=== PATIENT | female | born 1955 | race Caucasian/White ===

== ENCOUNTER → 2017-10-07 06:52 | Outpatient (CLI) | payer OTHER, SELFPAY ==
[2017-10-07 07:40] LABS: Microalbumin,Random Urine 6.5 mg/L (NO RANGE EST.); Microalbumin:Creatinine Ratio 4.1 mg/g CRE (<30 mg/g CRE)
[2017-10-07 07:49] LABS: ALB/GLOB Ratio 1.2 RATIO (0.9-2.4); AST(SGOT) 19 U/L (15-37); Alanine Aminotransfer ALT/SGPT 20 U/L (13-56); Albumin, Serum 3.8 g/dL (3.2-5.0); Alkaline Phosphatase 71 U/L (45-117); Anion Gap 7 (5-15); BUN 20 mg/dL (7-18); BUN/Creat Ratio 18.9 RATIO (10-20); Calcium,Total 9.4 mg/dL (8.5-10.1); Chloride 107 mmol/L (98-107); Cholesterol 240 mg/dL (200); Creatinine, Serum 1.06 mg/dL (0.55-1.02); EST Glomerular Filtration Rate 55 mL/min (>60); Est Glom Filt Rate - Afr Amer 67 mL/min (>60); Globulin 3.3 g/dL (2.2-4.2); Glucose 114 mg/dL (74-106); High Density Lipoprotein 38 mg/dL; Potassium 4.1 mmol/L (3.5-5.1); Protein, Total 7.1 g/dL (6.4-8.2); Sodium Level 141 mmol/L (136-145); Triglycerides 244 mg/dL; Very Low Density Lipoprotein 49 mg/dL (5-40)
[2017-10-07 08:06] LABS: Hemoglobin A1c 6.2 % (4.2-6.3)
== END ==
PROVIDERS: Family Provider Family Medicine; PCP Family Medicine; Visit Provider Family Medicine
DX: E11.9 Type 2 diabetes mellitus without complications (principal); E78.5 Hyperlipidemia, unspecified
CPT/HCPCS: 36415; 80053; 80061; 82043; 82570; 83036

== ENCOUNTER → 2018-06-27 08:34 | Outpatient (CLI) | payer MEDICARE, SELFPAY ==
--- NOTE | 2018-06-27 08:38 | BI_ITS ---
MAMMOGRAPHY - BILATERAL SCREENING REASON FOR EXAM: Female, 63 years old. Routine annual screening examination. PERTINENT HISTORY: Non-contributory. TECHNIQUE: Digital bilateral breast satish (3D mammographic acquisition) in the CC and MLO projections. 2-D mediolateral oblique (MLO) and craniocaudad (CC) views of both breasts were obtained. CAD: Full Field Digital Mammography with Computer Added Detection was performed. COMPARISON: Comparison is made with prior outside examination dated May 11, 2016. FINDINGS: Breast Composition: The breasts are heterogeneously dense, which may obscure small masses. There are no dominant masses or suspicious calcifications. Stable scattered calcifications in both breasts likely more prominent on the left side. No focal cluster is seen. Stable appearance of the fatty left axillary lymph nodes. No other significant abnormalities are identified. There has been no significant change since the prior study. BI/SCREENING MAMM (CAD), BILAT IMPRESSION: Stable bilateral screening mammogram. Yearly follow-up mammogram recommended. (A) ASSESSMENT CATEGORY: BIRADS Category 2: Benign. A letter regarding these results will be sent to the patient by the facility within 30 days. Approximately 10% of breast cancers are not detected by mammography. A normal mammogram should not delay biopsy of a clinically suspicious abnormality. [id number] Electronically Signed: Tyrone Moss MD at 10:11 EST , Service support ,
== END ==
PROVIDERS: Family Provider Family Medicine; PCP Family Medicine; Referring Provider Family Medicine; Visit Provider Family Medicine
DX: Z12.31 Encounter for screening mammogram for malignant neoplasm of breast (principal)
CPT/HCPCS: 77063; 77067

== ENCOUNTER → 2018-10-06 | Outpatient (CLI) | payer MEDICARE, SELFPAY ==
[2018-10-06 12:08] LABS: Absolute Lymphocyte Count 1.51 X10^3/ul (0.83-4.51); Absolute Neutrophil Count 2.4 X10^3/uL (2.0-7.7); Basophil# 0.03 X10^3/uL; Basophil% 0.7 % (0-1); Eosinophil# 0.13 X10^3/uL; Eosinophils% 2.8 % (0-5); Hematocrit 41.3 % (37-47); Hemoglobin 13.6 g/dl (12.0-15.0); Lymphocyte # 1.51 X10^3/ul (4.0); Mean Corp Hgb Conc 32.9 g/gl (32-36); Mean Corpuscular Hgb 31.1 pg (27.0-32.0); Mean Corpuscular Volume 94.5 fL (81-99); Mean Platelet Vol. 9.6 fl (6.2-12.0); Monocyte# 0.53 X10^3/uL; Monocyte% 11.6 % (0-10); Neutrophil # 2.36 X10^3/uL (2.7-7.7); Neutrophil % 51.7 % (47-70); Platelet Count 275 K/mm3 (150-450); RBC Distribution Width CV 12.4 % (11.6-14.6); Red Blood Count 4.37 M/mm3 (4.2-5.4); White Blood Count 4.6 K/mm3 (4.4-11.0)
[2018-10-06 12:13] LABS: POSITIVE COUNT NO; POSITIVE DIFFERENTIAL NO; POSITIVE MORPHOLOGY NO
[2018-10-06 12:29] LABS: ALB/GLOB Ratio 1.1 RATIO (0.9-2.4); AST(SGOT) 23 U/L (15-37); Alanine Aminotransfer ALT/SGPT 24 U/L (13-56); Albumin, Serum 3.9 g/dL (3.2-5.0); Alkaline Phosphatase 78 U/L (45-117); BUN 18 mg/dL (7-18); BUN/Creat Ratio 15.4 RATIO (10-20); Calcium,Total 9.8 mg/dL (8.5-10.1); Cholesterol 279 mg/dL (200); Creatinine, Serum 1.17 mg/dL (0.55-1.02); EST Glomerular Filtration Rate 49 mL/min (>60); Est Glom Filt Rate - Afr Amer 60 mL/min (>60); Globulin 3.7 g/dL (2.2-4.2); Glucose 115 mg/dL (74-106); Protein, Total 7.6 g/dL (6.4-8.2); Triglycerides 167 mg/dL
[2018-10-06 12:30] LABS: Anion Gap 3 (5-15); Chloride 107 mmol/L (98-107); High Density Lipoprotein 43 mg/dL; Potassium 4.2 mmol/L (3.5-5.1); Sodium Level 139 mmol/L (136-145); Very Low Density Lipoprotein 33 mg/dL (5-40)
== END | disposition home or self-care (01) ==
LOC: LAB.FUTURE 09:14
PROVIDERS: Family Provider Family Medicine; PCP Family Medicine; Visit Provider Family Medicine
DX: Z00.01 Encounter for general adult medical examination with abnormal findings (principal); E11.9 Type 2 diabetes mellitus without complications; N18.3 Chronic kidney disease, stage 3 (moderate); E78.5 Hyperlipidemia, unspecified
CPT/HCPCS: 36415; 80053; 80061; 83036; 85025

== ENCOUNTER → 2018-10-08 12:07 | Outpatient (CLI) | payer MEDICARE, SELFPAY ==
[2018-10-08 13:58] LABS: Microalbumin,Random Urine < 5.0 mg/L (NO RANGE EST.)
== END ==
PROVIDERS: Family Provider Family Medicine; PCP Family Medicine; Referring Provider Family Medicine; Visit Provider Family Medicine
DX: Z00.01 Encounter for general adult medical examination with abnormal findings (principal); E11.22 Type 2 diabetes mellitus with diabetic chronic kidney disease; N18.3 Chronic kidney disease, stage 3 (moderate); E78.5 Hyperlipidemia, unspecified
CPT/HCPCS: 82043; 82570

== ENCOUNTER → 2018-11-21 | Outpatient (CLI) | payer MEDICARE, SELFPAY ==
[2018-11-21 09:04] VITALS: BMI 33.7
--- NOTE | 2018-11-21 09:16 | RAD_ITS ---
STUDY: X-RAY - RIGHT HAND REASON FOR EXAM: Female, 63 years old. Pain in right fourth proximal phalanx. TECHNIQUE: 3 view(s) of the hand. COMPARISON: None. FINDINGS: Bones: There is minimal generalized osteopenia. Joints: Mild arthrosis of the radial carpal row, the first carpometacarpal joint and the MTP and IP joints. Soft tissues: The soft tissues are unremarkable. Foreign body: None RAD/Hand Min 3 Views IMPRESSION: Mild osteopenia with osteoarthritic changes. No acute finding. Electronically Signed: Jimmy Mcclendon MD at 13:44 EDT , Service support ,
== END | disposition home or self-care (01) ==
LOC: HPRAD 09:15
PROVIDERS: Family Provider Family Medicine; PCP Family Medicine; Referring Provider Orthopaedic Surgery; Visit Provider Orthopaedic Surgery
DX: M65.331 Trigger finger, right middle finger (principal)
CPT/HCPCS: 73130

== ENCOUNTER → 2019-04-13 | Outpatient (CLI) | payer MEDICARE, SELFPAY ==
[2018-12-07 12:26] VITALS: BMI 33.7
[2019-04-13 12:26] LABS: Anion Gap 7 (5-15); BUN 19 mg/dL (7-18); BUN/Creat Ratio 19.5 RATIO (10-20); Calcium,Total 9.6 mg/dL (8.5-10.1); Chloride 105 mmol/L (98-107); Creatinine, Serum 0.97 mg/dL (0.55-1.02); EST Glomerular Filtration Rate 61 mL/min (>60); Est Glom Filt Rate - Afr Amer 74 mL/min (>60); Glucose 129 mg/dL (74-106); Potassium 4.1 mmol/L (3.5-5.1); Sodium Level 138 mmol/L (136-145)
[2019-04-13 12:45] LABS: Vitamin D,25 Hydroxy 14.7 ng/mL (29.95-100.01)
[2019-04-13 13:10] LABS: PTHIN 85.6 pg/mL (18.4-80.1)
[2019-04-15 14:56] LABS: CHOLESTEROL TOTAL 285 mg/dL (100-199); HDL-C 22 mg/dL (>39); HDL-P TOTAL 28.7 umol/L (>=30.5); SMALL LDL-P 1931 nmol/L (<=527)
[2019-04-15 15:36] LABS: INSULIN RESISTANCE SCORE 97 (<=45); LDL SIZE 19.6 nm (>20.5); LDL-P 2427 nmol/L (<1000); TRIGLYCERIDES 965 mg/dL (0-149)
== END | disposition home or self-care (01) ==
LOC: LAB.FUTURE 08:40
PROVIDERS: Family Provider Family Medicine; PCP Family Medicine; Visit Provider Family Medicine
DX: E78.5 Hyperlipidemia, unspecified (principal); E11.22 Type 2 diabetes mellitus with diabetic chronic kidney disease; N18.3 Chronic kidney disease, stage 3 (moderate)
CPT/HCPCS: 36415; 80048; 80061; 82306; 83036; 83704; 83970

== ENCOUNTER → 2019-10-10 08:02 | Outpatient (CLI) | payer MEDICARE, SELFPAY ==
[2018-12-07 12:26] VITALS: BMI 33.7
[2019-10-10 08:57] LABS: Hemoglobin A1c 6.3 % (4.2-6.3)
[2019-10-10 08:59] LABS: ALB/GLOB Ratio 1.2 RATIO (0.9-2.4); AST(SGOT) 21 U/L (15-37); Alanine Aminotransfer ALT/SGPT 23 U/L (13-56); Alkaline Phosphatase 68 U/L (45-117); Anion Gap 6 (5-15); BUN 23 mg/dL (7-18); BUN/Creat Ratio 19.7 RATIO (10-20); Calcium,Total 9.3 mg/dL (8.5-10.1); Chloride 110 mmol/L (98-107); Cholesterol 234 mg/dL (200); Creatinine, Serum 1.17 mg/dL (0.55-1.02); EST Glomerular Filtration Rate 49 mL/min (>60); Est Glom Filt Rate - Afr Amer 59 mL/min (>60); Globulin 3.4 g/dL (2.2-4.2); Glucose 135 mg/dL (74-106); High Density Lipoprotein 42 mg/dL; Potassium 4.4 mmol/L (3.5-5.1); Protein, Total 7.4 g/dL (6.4-8.2); Sodium Level 142 mmol/L (136-145); Thyroid Stim Hormone (TSH) 1.45 uIU/mL (0.358-3.74); Triglycerides 347 mg/dL; Very Low Density Lipoprotein 69 mg/dL (5-40)
[2019-10-12 09:38] LABS: Vitamin D,25 Hydroxy 38.2 ng/mL
== END ==
PROVIDERS: Family Provider Family Medicine; PCP Family Medicine; Referring Provider Family Medicine; Visit Provider Family Medicine
DX: E11.9 Type 2 diabetes mellitus without complications (principal); E78.5 Hyperlipidemia, unspecified; E55.9 Vitamin D deficiency, unspecified
CPT/HCPCS: 36415; 80053; 80061; 82306; 83036; 84443

== ENCOUNTER → 2020-04-05 07:13 | Outpatient (CLI) | payer MEDICARE, SELFPAY ==
[2018-12-07 12:26] VITALS: BMI 33.7
[2020-04-05 08:25] LABS: Microalbumin,Random Urine 15.1 mg/L (NO RANGE EST.); Microalbumin:Creatinine Ratio 7.5 mg/g CRE (<30 mg/g CRE)
[2020-04-05 08:44] LABS: Hemoglobin A1c 6.2 % (3.8-5.6)
[2020-04-05 08:47] LABS: ALB/GLOB Ratio 1.1 RATIO (0.9-2.4); AST(SGOT) 22 U/L (15-37); Alanine Aminotransfer ALT/SGPT 22 U/L (13-56); Albumin, Serum 3.9 g/dL (3.2-5.0); Alkaline Phosphatase 65 U/L (45-117); Anion Gap 4 (5-15); BUN 19 mg/dL (7-18); BUN/Creat Ratio 15.1 RATIO (10-20); Calcium,Total 9.6 mg/dL (8.5-10.1); Chloride 108 mmol/L (98-107); Cholesterol 232 mg/dL (200); Creatinine, Serum 1.26 mg/dL (0.55-1.02); EST Glomerular Filtration Rate 45 mL/min (>60); Est Glom Filt Rate - Afr Amer 54 mL/min (>60); Globulin 3.6 g/dL (2.2-4.2); Glucose 129 mg/dL (74-106); High Density Lipoprotein 48 mg/dL; Protein, Total 7.5 g/dL (6.4-8.2); Sodium Level 140 mmol/L (136-145); Triglycerides 225 mg/dL; Very Low Density Lipoprotein 45 mg/dL (5-40)
== END ==
PROVIDERS: PCP Family Medicine; Referring Provider Family Medicine; Visit Provider Family Medicine
DX: E11.22 Type 2 diabetes mellitus with diabetic chronic kidney disease (principal); E78.5 Hyperlipidemia, unspecified; N18.31 Chronic kidney disease, stage 3a
CPT/HCPCS: 36415; 80053; 80061; 82043; 82570; 83036

== ENCOUNTER → 2020-04-29 06:49 | Outpatient (CLI) | payer MEDICARE, SELFPAY ==
[2018-12-07 12:26] VITALS: BMI 33.7
--- NOTE | 2020-04-29 10:59 | STRESSREP_ITS ---
Stress Test Report Pharmacologic myocardial perfusion stress test. 65-year-old lady with a history of chest pain. Medications: Metformin, Zetia, vitamin D. Stress protocol: Resting EKG demonstrates normal sinus rhythm with a rate of 69 bpm normal intervals are noted resting blood pressure is 1 and 32/70 4 mmHg. 0.4 mg of regadenoson was infused per usual protocol with a maximum heart rate of 102 bpm which was 66% of max impacted heart rate the maximum workload was 1 metabolic equivalent. At rest there were no ST or T wave changes noted to suggest a bnormal flow reserve at peak infusion nonspecific ST-T wave changes were noted with no meet the criteria for ischemia. No clinical angina was noted. Myocardial perfusion protocol. 11.6 mCi of technetium 99m sestamibi was injected at rest. 0.4 mg of regadenoson was infused per usual protocol. At peak infusion 33.3 mCi of technetium 99m sestamibi was injected stress images were obtained stress and rest images were reconstructed and compared in the short axis vertical and horizontal long axis. Gated images were also obtained Perfusion SPECT analysis: Review of the stress images demonstrate normal uptake of tracer noted in all areas of the myocardium: The resting images similarly demonstrate normal uptake of tracer noted in all areas of the myocardium. No reversibility is noted to suggest ischemia. Gated SPECT analysis: The gated ejection fraction is 84%. Conclusion: Normal pharmacologic myocardial perfusion stress test. Preserved ejection fraction.
== END ==
PROVIDERS: PCP Family Medicine; Referring Provider Family Medicine; Visit Provider Family Medicine
DX: R06.00 Dyspnea, unspecified (principal); E11.9 Type 2 diabetes mellitus without complications
CPT/HCPCS: 78452; 93017; A9500; A4216; J2785

== ENCOUNTER → 2020-10-11 07:19 | Outpatient (CLI) | payer MEDICARE, SELFPAY ==
[2018-12-07 12:26] VITALS: BMI 33.7
[2020-10-11 08:36] LABS: Absolute Neutrophil Count 3.4 X10^3/uL (2.0-7.7); Basophil# 0.05 X10^3/uL; Basophil% 0.8 % (0-1); Eosinophil# 0.19 X10^3/uL; Eosinophils% 3.1 % (0-5); Hematocrit 40.8 % (37-47); Hemoglobin 13.4 g/dL (12.0-15.0); Lymphocyte % 31.1 % (19-41); Mean Corp Hgb Conc 32.8 g/dL (32-36); Mean Corpuscular Hgb 31.3 pg (27.0-32.0); Mean Corpuscular Volume 95.3 fL (81-99); Mean Platelet Vol. 9.3 fl (6.2-12.0); Monocyte# 0.58 X10^3/uL; Monocyte% 9.5 % (0-10); NRBC Flagged by Analyzer 0 % (0-5); Neutrophil # 3.36 X10^3/uL (2.7-7.7); Neutrophil % 55.2 % (47-70); Platelet Count 304 K/mm3 (150-450); RBC Distribution Width CV 12.1 % (11.6-14.6); RBC Distribution Width SD 41.5 fl (35.1-43.9); Red Blood Count 4.28 M/mm3 (4.2-5.4); White Blood Count 6.1 K/mm3 (4.4-11.0)
[2020-10-11 08:58] LABS: Microalbumin,Random Urine 9.9 mg/L (NO RANGE EST.); Microalbumin:Creatinine Ratio 5.5 mg/g CRE (<30 mg/g CRE)
[2020-10-11 09:03] LABS: Vitamin D,25 Hydroxy 32.2 ng/mL
[2020-10-11 09:09] LABS: ALB/GLOB Ratio 1.1 RATIO (0.9-2.4); AST(SGOT) 18 U/L (15-37); Alanine Aminotransfer ALT/SGPT 20 U/L (13-56); Albumin, Serum 3.9 g/dL (3.2-5.0); Alkaline Phosphatase 74 U/L (45-117); Anion Gap 6 (5-15); BUN 21 mg/dL (7-18); BUN/Creat Ratio 17.8 RATIO (10-20); Calcium,Total 9.4 mg/dL (8.5-10.1); Chloride 105 mmol/L (98-107); Cholesterol 223 mg/dL (200); Creatinine, Serum 1.18 mg/dL (0.55-1.02); EST Glomerular Filtration Rate 49 mL/min (>60); Est Glom Filt Rate - Afr Amer 59 mL/min (>60); Globulin 3.5 g/dL (2.2-4.2); Glucose 128 mg/dL (74-106); High Density Lipoprotein 44 mg/dL; Potassium 4.1 mmol/L (3.5-5.1); Protein, Total 7.4 g/dL (6.4-8.2); Sodium Level 138 mmol/L (136-145); Triglycerides 288 mg/dL; Very Low Density Lipoprotein 58 mg/dL (5-40)
== END ==
PROVIDERS: PCP Family Medicine; Referring Provider Family Medicine; Visit Provider Family Medicine
DX: E11.22 Type 2 diabetes mellitus with diabetic chronic kidney disease (principal); N18.30 Chronic kidney disease, stage 3 unspecified; E78.5 Hyperlipidemia, unspecified; E55.9 Vitamin D deficiency, unspecified; N25.81 Secondary hyperparathyroidism of renal origin
CPT/HCPCS: 36415; 80053; 80061; 82043; 82306; 82570; 83036; 83970; 85025

== ENCOUNTER → 2020-10-28 07:03 | Outpatient (CLI) | payer MEDICARE, SELFPAY ==
[2018-12-07 12:26] VITALS: BMI 33.7
--- NOTE | 2020-10-28 07:05 | BI_ITS ---
MAMMOGRAPHY - BILATERAL SCREENING REASON FOR EXAM: Female, 65 years old. Routine annual screening examination. PERTINENT HISTORY: Non-contributory. TECHNIQUE: Digital bilateral breast noah (3D mammographic acquisition) in the CC and MLO projections. 2-D mediolateral oblique (MLO) and craniocaudad (CC) views of both breasts were obtained. CAD: Full Field Digital Mammography with Computer Added Detection was performed. COMPARISON: Comparison is made with prior study dated 12/25/2018. FINDINGS: Breast Composition: The breasts are heterogeneously dense, which may obscure small masses. There are no dominant masses or suspicious calcifications. Stable benign appearing scattered bilateral microcalcifications. No focal cluster is seen. No other significant abnormalities are identified. There has been no significant change since the prior study. BI/SCRN MAMM (CAD)W/NOAH BILAT IMPRESSION: Stable bilateral screening mammogram. Yearly follow-up mammogram recommended. (A) ASSESSMENT CATEGORY: BIRADS Category 2: Benign. A letter regarding these results will be sent to the patient by the facility within 30 days. Approximately 10% of breast cancers are not detected by mammography. A normal mammogram should not delay biopsy of a clinically suspicious abnormality. [id number] Electronically Signed: Tyrone Moss MD at 8:24 EDT , Service support ,
== END ==
PROVIDERS: PCP Family Medicine; Referring Provider Family Medicine; Visit Provider Family Medicine
DX: Z12.31 Encounter for screening mammogram for malignant neoplasm of breast (principal)
CPT/HCPCS: 77063; 77067

== ENCOUNTER 2021-03-27 12:30 | Outpatient (CLI) | payer MEDICARE, SELFPAY ==
[2021-03-27 13:12] VITALS: BP 138/67; PULSE 86; RESP 16; TEMP 36.8; O2SAT 98; BMI 31.3
[2021-03-27] MEDS: 0.9% Saline Lock 10 ML Syringe IV (13:19)
[2021-03-27 13:58] VITALS: BP 128/66; PULSE 78; RESP 16; TEMP 36.9; O2SAT 97
[2021-03-27 14:58] VITALS: BP 134/73; PULSE 81; RESP 16; TEMP 37; O2SAT 99
== END 2021-03-27 14:58 | disposition home or self-care (01) ==
LOC: MS3OUT 12:30 → MS3 12:31
PROVIDERS: PCP Family Medicine; Referring Provider Nurse Practitioner Adult Health; Visit Provider Nurse Practitioner Adult Health
DX: Z23 Encounter for immunization (principal); U07.1 COVID-19
CPT/HCPCS: J7050; M0245; Q0245; A4216

== ENCOUNTER → 2021-09-28 | Outpatient (CLI) | payer MEDICARE, SELFPAY ==
[2018-12-07 12:26] VITALS: BMI 33.7
[2021-09-28 08:24] LABS: Absolute Lymphocyte Count 1.76 X10^3/uL (0.83-4.51); Absolute Neutrophil Count 3.4 X10^3/uL (2.0-7.7); Basophil# 0.04 X10^3/uL; Basophil% 0.7 % (0-1); Eosinophil# 0.15 X10^3/uL; Eosinophils% 2.5 % (0-5); Hematocrit 42.8 % (37-47); Hemoglobin 14.4 g/dL (12.0-15.0); Lymphocyte # 1.76 X10^3/ul (0.83-4.51); Lymphocyte % 29.2 % (19-41); Mean Corp Hgb Conc 33.6 g/dL (32-36); Mean Corpuscular Hgb 31.9 pg (27.0-32.0); Mean Corpuscular Volume 94.9 fL (81-99); Mean Platelet Vol. 9.7 fl (6.2-12.0); Monocyte# 0.64 X10^3/uL; Monocyte% 10.6 % (0-10); NRBC Flagged by Analyzer 0 % (0-5); Neutrophil # 3.42 X10^3/uL (2.7-7.7); Neutrophil % 56.7 % (47-70); Platelet Count 293 K/mm3 (150-450); RBC Distribution Width SD 42.2 fl (35.1-43.9); Red Blood Count 4.51 M/mm3 (4.2-5.4)
[2021-09-28 08:45] LABS: Microalbumin:Creatinine Ratio 11.8 mg/g CRE (<30 mg/g CRE)
[2021-09-28 08:51] LABS: AST(SGOT) 24 U/L (15-37); Alanine Aminotransfer ALT/SGPT 24 U/L (13-56); Alkaline Phosphatase 73 U/L (45-117); Anion Gap 4 (5-15); BUN 23 mg/dL (7-18); BUN/Creat Ratio 19.5 RATIO (10-20); Calcium,Total 9.8 mg/dL (8.5-10.1); Chloride 105 mmol/L (98-107); Cholesterol 252 mg/dL (200); Creatinine, Serum 1.18 mg/dL (0.55-1.02); EST Glomerular Filtration Rate 48 mL/min (>60); Est Glom Filt Rate - Afr Amer 59 mL/min (>60); Globulin 3.9 g/dL (2.2-4.2); Glucose 138 mg/dL (74-106); High Density Lipoprotein 46 mg/dL; Potassium 4.2 mmol/L (3.5-5.1); Protein, Total 7.9 g/dL (6.4-8.2); Sodium Level 137 mmol/L (136-145); Triglycerides 234 mg/dL; Very Low Density Lipoprotein 47 mg/dL (5-40)
[2021-09-28 08:58] LABS: Hemoglobin A1c 6.2 % (3.8-5.6)
[2021-09-28 09:19] LABS: PTHIN 92.5 pg/mL (18.4-80.1)
[2021-09-28 09:20] LABS: Vitamin D,25 Hydroxy 37.2 ng/mL
== END | disposition home or self-care (01) ==
PROVIDERS: PCP Family Medicine; Referring Provider Family Medicine; Visit Provider Family Medicine
DX: E11.22 Type 2 diabetes mellitus with diabetic chronic kidney disease (principal); N25.81 Secondary hyperparathyroidism of renal origin; N18.31 Chronic kidney disease, stage 3a; E78.5 Hyperlipidemia, unspecified; E55.9 Vitamin D deficiency, unspecified
CPT/HCPCS: 36415; 80053; 80061; 82043; 82306; 82570; 83036; 83970; 85025

== ENCOUNTER → 2021-10-12 | Outpatient (CLI) | payer MEDICARE, SELFPAY ==
[2021-10-16 13:18] LABS: Vitamin D 1,25-Dihydroxy 33.9 pg/mL (19.9-79.3)
== END | disposition home or self-care (01) ==
PROVIDERS: PCP Family Medicine; Referring Provider Family Medicine; Visit Provider Family Medicine
DX: E34.9 Endocrine disorder, unspecified (principal)
CPT/HCPCS: 36415; 82330; 82652; 83970

== ENCOUNTER → 2021-10-17 | Outpatient (CLI) | payer MEDICARE, SELFPAY | END | disposition home or self-care (01) | LOC: LAB 09:10 | PROVIDERS: PCP Family Medicine; Referring Provider Family Medicine; Visit Provider Family Medicine | DX: E34.9 Endocrine disorder, unspecified (principal) | CPT/HCPCS: 82330 ==

== ENCOUNTER → 2021-10-23 | Outpatient (CLI) | payer MEDICARE, SELFPAY ==
--- NOTE | 2021-10-23 08:15 | AAAS_ITS ---
Reason For Study: Former smoker Aorta Measurements Aorta Doppler Measurements Proximal aorta measures1.40 x 1.41cm. in cross- Peak systolic flow velocities within the proximal sectional axis. aorta measure 94.3 cm/sec. Proximal aorta measures1.40cm. in longitudinal Peak systolic flow velocities within the mid aorta axis. measure 119.8 cm/sec. Mid aorta measures1.25 x 1.25cm. in cross- Peak systolic flow velocities within the distal sectional axis. aorta measure 101.5 cm/sec. Mid aorta measures1.24cm. in longitudinal axis. Distal aorta measures1.41 x 1.41cm. in cross- sectional axis. Distal aorta measures1.41cm. in longitudinal axis. Left Iliac Artery Left iliac artery measures 0.91 x 0.93 cm. in the cross-sectional axis. Left iliac artery measures 0.90 cm. in the longitudinal axis. Peak systolic velocity in the left iliac artery measures 119.8 cm/sec. Right Iliac Artery Right iliac artery measures 0.82 x 0.80 cm. in the cross-sectional axis. Right iliac artery measures 0.80 cm. in the longitudinal axis. Peak systolic velocity in the right iliac artery measures 147.2 cm/sec. Procedure Aorta IVC Iliac vasculature or bypass grafts [id number]. Exam performed in department. VL/AAA Screening Interpretation Summary The dimensions of the intra-abdominal aorta appear normal, without evidence of aneurysmal dilatation. The iliac arteries also appear normal in caliber bilaterally. The i ntra-abdominal aorta and iliac arteries appear patent, demonstrating normal, pulsatile arterial flow and normal peak systolic velocities. Ordering Physician: Juan Brand Referring Physician: Juan Brand Performed By: Cassy Mason RVT
== END | disposition home or self-care (01) ==
LOC: CVS 08:14
PROVIDERS: PCP Family Medicine; Referring Provider Family Medicine; Visit Provider Family Medicine
DX: Z13.6 Encounter for screening for cardiovascular disorders (principal); Z87.891 Personal history of nicotine dependence
CPT/HCPCS: 76706

== ENCOUNTER → 2021-10-31 | Outpatient (CLI) | payer MEDICARE, SELFPAY ==
--- NOTE | 2021-10-31 15:54 | BI_ITS ---
MAMMOGRAPHY - BILATERAL SCREENING REASON FOR EXAM: Female, 66 years old. Routine annual screening examination. PERTINENT HISTORY: Non-contributory. TECHNIQUE: Digital bilateral breast noah (3D mammographic acquisition) in the CC and MLO projections. 2-D mediolateral oblique (MLO) and craniocaudad (CC) views of both breasts were obtained. CAD: Full Field Digital Mammography with Computer Added Detection was performed. COMPARISON: Comparison is made with prior study 10/20/2020 and 12/25/2018. FINDINGS: Breast Composition: The breasts are heterogeneously dense, which may obscure small masses. There are no dominant masses or suspicious calcifications. Once again, there is evidence of a benign-appearing scattered microcalcifications. No focal cluster is seen. These most likely represent secretory calcifications. No other significant abnormalities are identified. There has been no significant change since the prior study. BI/SCRN MAMM (CAD)W/NOAH BILAT IMPRESSION: Stable bilateral screening mammogram. Yearly follow-up mammogram recommended. (A) ASSESSMENT CATEGORY: BIRADS Category 2: Benign. A letter regarding these results will be sent to the patient by the facility within 30 days. Approximately 10% of breast cancers are not detected by mammography. A normal mammogram should not delay biopsy of a clinically suspicious abnormality. [id number] Electronically Signed: Tyrone Moss MD at 8:42 EDT ,
--- NOTE | 2021-10-31 15:59 | BD_ITS ---
STUDY: DUAL ENERGY X-RAY ABSORPTIOMETRY / DXA REASON FOR EXAM: Female, 66 years old. M810. The patient is postmenopausal. TECHNIQUE: Bone Mineral Density (BMD) measurements of lumbar spine and bilateral hips were obtained. COMPARISON: None. FINDINGS: Lumbar Spine (L1-L4): g/cm2 (1.031) / T-score (-0.1) / Z-score (1.9) Findings are suggestive of normal bone density with a low fracture risk. Left Femur Total: g/cm2 (0.964) / T-score (0.2) / Z-score (1.6) Left Femoral Neck: g/cm2 (0.741) / T-score (-1.0) / Z-score (0.7) Right Femur Total: g/cm2 (0.950) / T-score (0.1) / Z-score (1.5) Right Femoral Neck: g/cm2 (0.732) / T-score (-1.1) / Z-score (0.7) BD/Dexa Bone Density Study IMPRESSION: The patient is considered osteopenic as outlined below according to World [employer] Organization (WHO) criteria with a low fracture risk. Reference Information: The T-score is the number of standard deviations above or below the standard which is normal for young adults at their peak bone mineral density. The World Health Organization (WHO) interprets the T-scores as follows: Above -1 Normal bone density Between -1 and -2.5 Osteopenia Equal to / or below -2.5 Osteoporosis As a practical clinical guideline, osteopenia may be graded as follows: Mild -1 through -1.5 Moderate -1.6 through -2.0 Severe -2.1 through -2.4 The Z-score is the number of standard deviations above or below age-matched controls. A Z-score of less than -1.5 would be considered abnormal. References: 1. NIH Osteoporosis and Related Bone Diseases www osteo.org 2. International Society for Clinical Densitometry www iscd.org 3. National Osteoporosis Foundation www nof.org Electronically Signed: Tyrone Moss MD at 8:26 EDT ,
== END | disposition home or self-care (01) ==
LOC: OPBD 15:52
PROVIDERS: PCP Family Medicine; Referring Provider Family Medicine; Visit Provider Family Medicine
DX: M81.0 Age-related osteoporosis without current pathological fracture (principal); Z12.31 Encounter for screening mammogram for malignant neoplasm of breast
CPT/HCPCS: 77063; 77067; 77080

== ENCOUNTER 2022-04-30 14:30 | Outpatient (RCR) | payer MEDICARE, SELFPAY ==
[2022-04-13 08:02] VITALS: BP 160/95; PULSE 89; RESP 18; TEMP 36.1; BMI 32.3
--- NOTE | 2022-04-13 13:09 | PCM.WC.HP ---
History of Present Illness Date of Service: 04/13/22 Chief Complaint: dog bites to bilateral lower legs History of Wound: Vickie is a pleasant 67 yo woman that presents to the wound healing center upon referral from the ER in [place] for wounds from a dog bite that occurred on 04/08/22. She was attempting to return a puppy that had run off to its owner spa director and one of the owner spa director's other dogs attacked Vickie and bit her multiple times on the legs. She went to the ER and was treated and started on Amoxicillin/clavulanate 500/125 BID. The wounds were cleaned and skin flap was excised from the right calf wound. She has been dressing the wounds with adaptic and Aquacel for the last several days. The drainage is moderate. She has had some pain. Denies fever or chills. She did receive updated tetanus in ER. She has approx. 3 days left to antibiotic that she received in ER. 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 She is otherwise healthy and not taking any medications. [facility] Medical History Diabetes difficulty with anthesia Home Medications ibuprofen 200 mg capsule 200 mg PO ONCE 06/06/17 [History Last Taken Unknown] Allergy/AdvReac Type Severity Reaction Status Date / Time promethazine Allergy Mild unknown Verified 03/27/21 13:09 sulfamethoxazole Allergy Hives Verified 03/27/21 13:09 [From ] trimethoprim [From ] Allergy Hives Verified 03/27/21 13:09 codeine AdvReac Vomiting Verified 03/27/21 13:09 RYNATAN AdvReac Other Uncoded 03/27/21 13:09 Family History Father Heart disease Mother Colon cancer Heart disease Diabetes Aunt Colon cancer Surgical History H/O: History of bilateral carpal tunnel release S/P right knee arthroscopy Status post bunionectomy Social History (Updated 01/27/19 @ 10:[address] Luz Elena Hardwick DO) Smoking Status: Former smoker ROS Constitutional Constitutional: Denies chills, fatigue or fever(s) Eyes Eyes: Denies blurry vision, change in vision or loss of vision ENT HEENT: Denies dysphagia, hearing loss or sore throat Cardiovascular Cardiovascular: Denies chest pain, edema or palpitations Respiratory/Chest Respiratory/Chest: Denies dry cough, dyspnea, dyspnea on exertion, productive cough or wheezing Gastrointestinal Gastrointestinal: Denies diarrhea, nausea or vomiting Genitourinary Genitourinary: Denies dysuria or polyuria Musculoskeletal Musculoskeletal: Denies arthralgias, joint stiffness or muscle weakness Integumentary Integumentary: Reports erythema and wounds Neurologic Neurologic: Denies dizziness, memory loss or weakness Psychiatric Psychiatric: Denies homicidal ideation or suicidal ideation Endocrine Endocrinology: Denies polydipsia, polyphagia or polyuria Hematologic/Lymphatic Hematologic/Lymphatic: Denies easy bleeding or easy bruising Allergic/Immunologic Allergic/Immunologic: Denies throat swelling, tongue swelling or urticaria Vital Signs Vital Signs Vital Signs: 04/13/22 08:02 Temperature 97 F L Temperature Source Temporal Pulse Rate 89 Respiratory Rate 18 Blood Pressure 160/95 H Blood Pressure Mean 116 Blood Pressure Source Monitor Blood Pressure Position Semi-Fowlers Blood Pressure Location Left Arm Weight Weight: 72.575 kg Body Mass Index (BMI) 32.3 Physical Exam Const alert, oriented x3 and no apparent distress General Appearance: cooperative and comfortable HEENT normocephalic and head/scalp atraumatic Resp normal respiratory effort Effort and Inspection: able to speak in complete sentences Cardio regular rate and regular rhythm Skin Wounds: wounds noted Wound Narrative: as in clinical panel Psych mental status grossly normal, thought process normal, cooperative and affect normal Debridement Note Debridement Note Wound debrided: right calf cluster Laterality: Right Type of Debridement: Excisional debridement Anesthesia Used: 4% Lidocaine Solution and 5% Lidocaine Gel Depth: Down to and including healthy tissue and in the subcutaneous layer Percentage of wound debrided: 100 Instrument Used: 5mm curette Tissue Removed: Yellow slough, devitalized tissue Severity: Fat Layer Exposed Amount of bleeding with debridement: Mild Bleeding Controlled with: Pressure Patient tolerated procedure: Patient tolerated procedure well Post-Debridement Measurements and Additional Note: Post-Debridement Measurements/Treatment - Nurse 1 - General Ulcer Assessment Start: 04/13/22 08:02 Freq: Status: Active Protocol: HI.LOWEXT Activity Type Activity Date Activity User E-sign Co-sign Detail Recorded Client Recorded Date Recorded By Document 04/13/22 08:02 RUBIO [id number] 04/13/22 08:17 RUBIO 04/13/22 08:02 - Today's Visit Information Type of service 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 ) Arrival Mode Ambulatory Transfer Assistance None Patient Identification Verified (Name & Yes ) Patient Requires Transmission-Based No Precautions Height and Weight Height 4 ft 11 in Weight 72.575 kg Weight in Pounds 160.0 lbs Body Mass Index (BMI) 32.3 BMI Classification Obese BSA - Lesa 1.68 Vital Signs Temperature (97.8 F-99.1 F) 97 F L Temperature Source Temporal Pulse Rate (60-100) 89 Pulse Location Monitor Respiratory Rate (12-18) 18 Respiratory rate source Observation Blood Pressure (90/60-120/80) 160/95 H Blood Pressure Mean 116 Source Monitor Position Semi-Fowlers Blood Pressure Location Left Arm History Since Last Visit- (Skip if this is Patient's initial visit) Have you changed medications since your No last visit? Any new allergies or adverse reactions No Had a fall/change in ADL's that may No increase risk of falls Signs or symptoms of abuse and/or No neglect since last visit Have you been in the hospital since your No last visit? Has dressing in place as prescribed Yes Has compression in place as prescribed No Has offloadiing in place as prescribed No Experienced any changes in pain level or No management Left Footwear Regular Shoe Right Footwear Regular Shoe Pain Scale: 0-10 Numeric Is Patient Pain Free? Yes Lower Extremity Assessment/ Foot Assessment/ Toe Nail Assessment Right -Posterior Tibial Palpable Yes -Dorsalis Pedis Palpable Yes -Extremity Color Normal -Hair Growth on Legs Yes -Hair Growth on Toes Yes -Temperature of Extremity Warm -Capillary Refill Less than 3 Seconds -Dependent Rubor No -Blanched when Elevated No -Lipodermatosclerosis No -Other Deformity No -Prior Foot Ulcer No -Charcot Joint No -Prior Amputation No -Thick No -Discolored No -Deformed No -Improper Length & Hygeine Yes Left -Posterior Tibial Palpable Yes -Dorsalis Pedis Palpable Yes -Extremity Color Normal -Hair Growth on Legs Yes -Hair Growth on Toes Yes -Temperature of Extremity Warm -Capillary Refill Less than 3 Seconds -Dependent Rubor No -Blanched when Elevated No -Lipodermatosclerosis No -Other Deformity No -Prior Foot Ulcer No -Charcot Joint No -Prior Amputation No -Thick No -Discolored No -Deformed No -Improper Length & Hygeine Yes Neuropathy Assessment Feet - Top Side and Bottom <Entered> (a) Communication Assessment Preferred language [place]onese Water Plumber Required No Able to Read Yes Able to Write Yes Communication Tools None Caregiver Communication Skills No Impairment Impairment Right Hearing Abillity Normal Left Hearing Abillity Normal Visual Assistive Devices Glasses Teaching Assessment Preferences Verbal,Written, Demonstration Barriers to Learning None Readiness To Learn Excellent Willingness to Engage in Self Management High Activies Readiness to Engage in Self Management High Activities Anxiety Level Calm Cooperation Cooperative Perception Coherent Interest in Health Problem Asks Questions Education Importance Acknowledges Need Does Patient Smoke tobacco or other No substances Smoking Status Former smoker Is Patient Diabetic No Functional Assessment Recent Decline in Ability to Perform Denies Any Declines Assistive Device With Patient No Culture/Samaritan/Water Plumber Cultural/Samaritan Needs that may affect No Treatment Plan Would you allow our hospital electrical integrator to No meet you for the purpose of spiritual/ emotional support? Water Plumber to contact place of spiritism No Teaching: Wound Center *Welcome to the Wound Center -Person Taught Patient,Family -Teaching Method Discussion, Demonstration -Response to teaching Return demonstration (a) 1 - + throughout WC - Nurse 1 - General Ulcer Measurement Start: 04/13/22 08:02 Freq: Status: Active Protocol: Activity Type Activity Date Activity User E-sign Co-sign Detail Recorded Client Recorded Date Recorded By Document 04/13/22 08:02 [id number] 04/13/22 08:17 RB 04/13/22 08:02 Wound Center Nurse 1 3. R calf cluster -Combined with other wound No -Current Size (cm) - Length 3.8 -Current Size (cm) - Width 1 -Current Size (cm) - Depth 0.1 -Total Square Cm 3.8 -Photo Taken Yes -Tunneling No -Undermining/Tunneling No -Circular Undermining No -Exudate Amt Medium -Exudate Type Serosanguineous -Wound Margin Thickened & Rolled Under -Granulation Amt Medium (34-66%) -Granulation Quality [place] -Slough/Fibrin Yes -Necrosis Amt Large (67-100%) -Necrotic Tissue Type Adherent Slough -Structure Exposed N/A -Texture (Karolina-wound Skin Appearance) Assessed -Moisture (Karolina-wound Skin Appearance) Assessed -Color (Karolina-wound Skin Appearance) Ecchymosis -Temperature (Karolina-wound Skin No Abnormality Appearance) (Pt Warm) -Tenderness on Palpation (Karolina-wound No Skin Appearance) -Ulcer Cleansing Wound Cleanser -Foul Odor after Cleansing No -Anesthetic Used 5% Lidocaine Gel 2. RLE lateral -Current Size (cm) - Length 5.5 -Current Size (cm) - Width 1.8 -Current Size (cm) - Depth 0.2 -Total Square Cm 9.90 -Photo Taken Yes -Tunneling No -Undermining/Tunneling No -Circular Undermining No -Exudate Amt Medium -Exudate Type Serosanguineous -Wound Margin Thickened & Rolled Under -Granulation Amt Medium (34-66%) -Granulation Quality [place] -Slough/Fibrin Yes -Necrosis Amt Large (67-100%) -Necrotic Tissue Type Adherent Slough -Structure Exposed N/A -Texture (Karolina-wound Skin Appearance) Assessed -Moisture (Karolina-wound Skin Appearance) Assessed -Color (Karolina-wound Skin Appearance) Assessed, Ecchymosis -Temperature (Karolina-wound Skin No Abnormality Appearance) (Pt Warm) -Tenderness on Palpation (Karolina-wound No Skin Appearance) -Ulcer Cleansing Wound Cleanser -Foul Odor after Cleansing No -Anesthetic Used 5% Lidocaine Gel 1. LLE lateral cluster -Combined with other wound No -Current Size (cm) - Length 4.2 -Current Size (cm) - Width 1.8 -Current Size (cm) - Depth 0.2 -Total Square Cm 7.56 -Photo Taken Yes -Tunneling No -Undermining/Tunneling No -Circular Undermining No -Exudate Amt Medium -Exudate Type Serosanguineous -Wound Margin Thickened & Rolled Under -Granulation Amt Medium (34-66%) -Granulation Quality [place] -Slough/Fibrin Yes -Necrosis Amt Large (67-100%) -Necrotic Tissue Type Adherent Slough -Structure Exposed N/A -Texture (Karolina-wound Skin Appearance) No Abnormality -Moisture (Karolina-wound Skin Appearance) Assessed -Color (Karolina-wound Skin Appearance) Assessed, Ecchymosis -Temperature (Karolina-wound Skin No Abnormality Appearance) (Pt Warm) -Tenderness on Palpation (Karolina-wound No Skin Appearance) -Ulcer Cleansing Wound Cleanser -Foul Odor after Cleansing No -Anesthetic Used 5% Lidocaine Gel Lower Limb Edema Present Yes Right Calf (cm) 39 Right Ankle (cm) 21.2 Left Calf (cm) 38.2 Left Ankle (cm) 21 WC - Nurse 2 - General Ulcer CM Notes Start: 04/13/22 08:02 Freq: Status: Active Protocol: Activity Type Activity Date Activity User E-sign Co-sign Detail Recorded Client Recorded Date Recorded By Document 04/13/22 08:33 MW [id number] 04/13/22 08:58 MW 04/13/22 08:33 Wound Center Nurse 2 3. R calf cluster -Time 08:33 -Correct Patient Yes -Correct Side, Site, Position Yes -Correct Procedure Yes -Procedure Performed Yes -Type of Procedure Debridement -Clinical Debridement Subcutaneous -Tissue Removed Subcutaneous -Post Debridement (cm) - Length 1.0 -Post Debridement (cm) - Width 0.8 -Post Debridement (cm) - Depth 0.2 -Total Square (Post) (cm) 0.80 -Area of Debridement (cm) - Length 1.0 -Area of Debridement (cm) - Width 0.8 -Total Square (Area) (cm) 0.80 -Tunneling No -Undermining/Tunneling No -Circular Undermining No -Wound/Ulcer Outcome Not Healed -Ulcer Cleansing Rinsed/ Irrigated with Saline -Foul Odor after Cleansing No -Bioengineered Tissue No -Bleeding Controlled with Pressure -Treatment Response Procedure Tolerated Well -Offloading No -Debridement - Subq, 1st 20sq cm Yes 2. RLE lateral -Time 08:34 -Correct Patient Yes -Correct Side, Site, Position Yes -Correct Procedure Yes -Procedure Performed Yes -Type of Procedure Debridement -Clinical Debridement Subcutaneous -Tissue Removed Subcutaneous -Post Debridement (cm) - Length 6.0 -Post Debridement (cm) - Width 2.0 -Post Debridement (cm) - Depth 0.2 -Total Square (Post) (cm) 12.00 -Area of Debridement (cm) - Length 6.0 -Area of Debridement (cm) - Width 2.0 -Total Square (Area) (cm) 12.00 -Tunneling No -Undermining/Tunneling No -Circular Undermining No -Wound/Ulcer Outcome Not Healed -Ulcer Cleansing Rinsed/ Irrigated with Saline -Foul Odor after Cleansing No -Bioengineered Tissue No -Bleeding Controlled with Pressure -Treatment Response Procedure Tolerated Well -Offloading No -Debridement - Subq, 1st 20sq cm No 1. LLE lateral cluster -Time 08:35 -Correct Patient Yes -Correct Side, Site, Position Yes -Correct Procedure Yes -Procedure Performed Yes -Type of Procedure Debridement -Clinical Debridement Subcutaneous -Tissue Removed Subcutaneous -Post Debridement (cm) - Length 4.0 -Post Debridement (cm) - Width 1.4 -Post Debridement (cm) - Depth 0.2 -Total Square (Post) (cm) 5.60 -Area of Debridement (cm) - Length 4.0 -Area of Debridement (cm) - Width 1.4 -Total Square (Area) (cm) 5.60 -Tunneling No -Undermining/Tunneling No -Circular Undermining No -Wound/Ulcer Outcome Not Healed -Ulcer Cleansing Rinsed/ Irrigated with Saline -Foul Odor after Cleansing No -Bioengineered Tissue No -Bleeding Controlled with Pressure -Treatment Response Procedure Tolerated Well -Offloading No -Debridement - Subq, 1st 20sq cm No Pain Scale: 0-10 Numeric Is Patient Pain Free? Yes WC - Nurse 3 - General Ulcer D/C NN Start: 04/13/22 08:02 Freq: Status: Active Protocol: Activity Type Activity Date Activity User E-sign Co-sign Detail Recorded Client Recorded Date Recorded By Document 04/13/22 09:17 DL [id number] 04/13/22 09:18 DL 04/13/22 09:17 Wound Care Nurse 3 3. R calf cluster -Foul Odor after Cleansing No -Primary Dressing Applied NonAdherent Contact Layer, Promogran Caroline Matter -Primary Dressing Covered/Secured with Dry Gauze & Roll Gauze, Secured with Tape -Promogran Caroline Matter 1 2. RLE lateral -Foul Odor after Cleansing No -Primary Dressing Applied NonAdherent Contact Layer, Promogran Caroline Matter -Primary Dressing Covered/Secured with Dry Gauze & Roll Gauze, Secured with Tape -Promogran Caroline Matter 1 1. LLE lateral cluster -Ulcer Cleansing Rinsed/ Irrigated with Saline -Foul Odor after Cleansing No -Primary Dressing Applied NonAdherent Contact Layer -Other Dressing caroline -Primary Dressing Covered/Secured with Dry Gauze & Roll Gauze, Secured with Tape Treatment Response Procedure Tolerated Well Pain Scale: 0-10 Numeric Is Patient Pain Free? Yes WC - Visit Discharge Discharge Condition Stable Ambulatory Status Ambulatory Transportation Private Auto Additional Wound Wound debrided: right LE lateral Laterality: Right Type of Debridement: Excisional debridement Anesthesia Used: 4% Lidocaine Solution and 5% Lidocaine Gel Depth: Down to and including healthy tissue and in the subcutaneous layer Percentage of wound debrided: 100 Instrument Used: 5mm curette Tissue Removed: Yellow slough, devitalized tissue Severity: Fat Layer Exposed Amount of bleeding with debridement: Mild Bleeding Controlled with: Compression and gauze Patient tolerated procedure: Patient tolerated procedure well Additional Wound Wound debrided: LLE cluster Laterality: Left Type of Debridement: Excisional debridement Anesthesia Used: 4% Lidocaine Solution and 5% Lidocaine Gel Depth: Down to and including healthy tissue and in the subcutaneous layer Percentage of wound debrided: 100 Instrument Used: 5mm curette Tissue Removed: Yellow slough, devitalized tissue Severity: Fat Layer Exposed Amount of bleeding with debridement: Mild Bleeding Controlled with: Compression and gauze Patient tolerated procedure: Patient tolerated procedure well Assessment/Plan Assessment/Plan (1) Open wound of left lower leg due to dog bite: CODE(S): S81.852A - Open bite, left lower leg, initial encounter; W54.0XXA - Bitten by dog, initial encounter (2) Open wound of right lower leg due to dog bite: CODE(S): S81.851A - Open bite, right lower leg, initial encounter; W54.0XXA - Bitten by dog, initial encounter PLAN: Plan Debridement performed today in clinic as annotated above. At home wound-care instructions: Apply Fibracol and Adaptic to wounds and cover with gauze changed daily for moderate drainage. Secure with tape. Keep dressing clean and dry. Off-loading: The patient was instructed to avoid pressure and friction on the affected areas. Reposition every 2 hours at minimum. Avoid prolonged standing and/or dangling of legs. When seated, feet should be elevated at chest level. Frequent ambulation is encouraged. Diet: Patient encouraged to increase protein intake while taking caution to avoid high carbohydrate and/or sugar intake. Labs/cultures/imaging: Wound culture taken. Will treat based on results. Follow-up: Return in 1 week for wound care follow up. Return sooner or report to the emergency room should symptoms worsen, or new symptoms arise. Note: Pow[employer] speech recognition passenger car inspector software was used to create portions of this document. Sound-alike and misspelled words, as well as other passenger car inspector errors may be contained in the documentation.
[2022-04-20 09:07] VITALS: BP 189/80; PULSE 85; RESP 18; TEMP 36.2; BMI 32.3
--- NOTE | 2022-04-20 11:40 | PCM.WC.PN ---
History of Present Illness Date of Service: 04/20/22 Chief Complaint: dog bites to bilateral lower legs History of Wound: Vickie is a pleasant 67 yo woman that presents to the wound healing center upon referral from the ER in [place] for wounds from a dog bite that occurred on 04/08/22. She was attempting to return a puppy that had run off to its world renowned chef and restaurant owner and one of the world renowned chef and restaurant owner's other dogs attacked Vickie and bit her multiple times on the legs. She went to the ER and was treated and started on Amoxicillin/clavulanate 500/125 BID. The wounds were cleaned and skin flap was excised from the right calf wound. She has been dressing the wounds with adaptic and Aquacel for the last several days. The drainage is moderate. She has had some pain. Denies fever or chills. She did receive updated tetanus in ER. She has approx. 3 days left to antibiotic that she received in ER. 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 She is otherwise healthy and not taking any medications. Subjective Subjective She is tolerating wound dressings and has not had any increase in drainage or erythema. Wound cultures were negative. She denies fever, chills, increased erythema or drainage. Objective Data Objective Data Vital Signs: Vital Signs Temp Pulse Resp BP 97.2 F L 85 18 189/80 H 04/20/22 09:07 04/20/22 09:07 04/20/22 09:07 04/20/22 09:07 Weight: 72.575 kg Body Mass Index (BMI) 32.3 Lab / Micro Data Micro: Microbiology 04/13/22 08:50 Wound Abcess - Leg, Right Gram Stain - Final 04/13/22 08:50 Wound Abcess - Leg, Right Wound Culture - Final No growth aerobically. 04/13/22 08:50 Wound Abcess - Leg, Right Anaerobic Culture - Final No growth in 5 days. Physical Exam Const alert, oriented x3 and no apparent distress General Appearance: cooperative and comfortable HEENT normocephalic and head/scalp atraumatic Resp normal respiratory effort Effort and Inspection: able to speak in complete sentences Cardio regular rate and regular rhythm Skin Wounds: wounds noted Wound Narrative: as in clinical panel Psych mental status grossly normal, thought process normal, cooperative and affect normal Debridement Note Debridement Note Wound debrided: right calf cluster Laterality: Right Type of Debridement: Excisional debridement Anesthesia Used: 4% Lidocaine Solution and 5% Lidocaine Gel Depth: Down to and including healthy tissue and in the subcutaneous layer Percentage of wound debrided: 100 Instrument Used: 5mm curette, #15 blade and Forceps Tissue Removed: Yellow slough, devitalized tissue Severity: Fat Layer Exposed Amount of bleeding with debridement: Mild Bleeding Controlled with: Pressure Patient tolerated procedure: Patient tolerated procedure well Post-Debridement Measurements and Additional Note: Post-Debridement Measurements/Treatment - Nurse 1 - General Ulcer Assessment Start: 04/13/22 08:02 Freq: Status: Active Protocol: FARHAN Activity Type Activity Date Activity User E-sign Co-sign Detail Recorded Client Recorded Date Recorded By Document 04/13/22 08:02 RB [id number] 04/13/22 08:17 RB Document 04/20/22 09:07 AK [id number] 04/20/22 09:14 AK 04/13/22 04/20/22 08:02 09:07 - Today's Visit Information Type of service Follow-up Visit Follow-up Visit (Physician/SHOP MANAGER (Physician/SHOP MANAGER ) ) Arrival Mode Ambulatory Ambulatory Transfer Assistance None None Patient Identification Verified (Name & Yes Yes ) Patient Requires Transmission-Based No No Precautions Height and Weight Height 4 ft 11 in Weight 72.575 kg Weight in Pounds 160.0 lbs Body Mass Index (BMI) 32.3 32.3 BMI Classification Obese Obese BSA - Lesa 1.68 Vital Signs Temperature (97.8 F-99.1 F) 97 F L 97.2 F L Temperature Source Temporal Temporal Pulse Rate (60-100) 89 85 Pulse Location Monitor Monitor Respiratory Rate (12-18) 18 18 Respiratory rate source Observation Observation Blood Pressure (90/60-120/80) 160/95 H 189/80 H Blood Pressure Mean (mm Hg) 116 116 Source Monitor Monitor Position Semi-Fowlers Semi-Fowlers Blood Pressure Location Left Arm Left Arm History Since Last Visit- (Skip if this is Patient's initial visit) Have you changed medications since your No No last visit? Any new allergies or adverse reactions No No Had a fall/change in ADL's that may No No increase risk of falls Signs or symptoms of abuse and/or No No neglect since last visit Have you been in the hospital since your No No last visit? Has dressing in place as prescribed Yes Yes Has compression in place as prescribed No No Has offloadiing in place as prescribed No No Experienced any changes in pain level or No No management Left Footwear Regular Shoe Right Footwear Regular Shoe Pain Scale: 0-10 Numeric Is Patient Pain Free? Yes No RLE -Description Burning -Intensity 4 -Pain Behavior Irritability, Withdrawal from Touch -Pain Aggravating Factors ADL's -Alleviating Factors/Interventions Medication -Effectiveness of Alleviating Factor/ Moderately Intervention effective Lower Extremity Assessment/ Foot Assessment/ Toe Nail Assessment Right -Posterior Tibial Palpable Yes -Dorsalis Pedis Palpable Yes -Extremity Color Normal -Hair Growth on Legs Yes -Hair Growth on Toes Yes -Temperature of Extremity Warm -Capillary Refill Less than 3 Seconds -Dependent Rubor No -Blanched when Elevated No -Lipodermatosclerosis No -Other Deformity No -Prior Foot Ulcer No -Charcot Joint No -Prior Amputation No -Thick No -Discolored No -Deformed No -Improper Length & Hygeine Yes Left -Posterior Tibial Palpable Yes -Dorsalis Pedis Palpable Yes -Extremity Color Normal -Hair Growth on Legs Yes -Hair Growth on Toes Yes -Temperature of Extremity Warm -Capillary Refill Less than 3 Seconds -Dependent Rubor No -Blanched when Elevated No -Lipodermatosclerosis No -Other Deformity No -Prior Foot Ulcer No -Charcot Joint No -Prior Amputation No -Thick No -Discolored No -Deformed No -Improper Length & Hygeine Yes Neuropathy Assessment Feet - Top Side and Bottom <Entered> (a) Communication Assessment Preferred language [place] Electric Motor Tester Required No Able to Read Yes Able to Write Yes Communication Tools None Caregiver Communication Skills No Impairment Impairment Right Hearing Abillity Normal Left Hearing Abillity Normal Visual Assistive Devices Glasses Teaching Assessment Preferences Verbal,Written, Demonstration Barriers to Learning None Readiness To Learn Excellent Willingness to Engage in Self Management High Activies Readiness to Engage in Self Management High Activities Anxiety Level Calm Cooperation Cooperative Perception Coherent Interest in Health Problem Asks Questions Education Importance Acknowledges Need Does Patient Smoke tobacco or other No substances Smoking Status Former smoker Is Patient Diabetic No Functional Assessment Recent Decline in Ability to Perform Denies Any Declines Assistive Device With Patient No Culture/Zoroastrianism/Commercial Housekeeper Cultural/Zoroastrianism Needs that may affect No Treatment Plan Would you allow our hospital valve and regulator repairer to No meet you for the purpose of spiritual/ emotional support? Commercial Housekeeper to contact place of confucianism No Teaching: Wound Center *Welcome to the Wound Center -Person Taught Patient,Family -Teaching Method Discussion, Demonstration -Response to teaching Return demonstration (a) 1 - + throughout WC - Nurse 1 - General Ulcer Measurement Start: 04/13/22 08:02 Freq: Status: Active Protocol: Activity Type Activity Date Activity User E-sign Co-sign Detail Recorded Client Recorded Date Recorded By Document 04/13/22 08:02 RB [id number] 04/13/22 08:17 RB Document 04/20/22 09:07 AK [id number] 04/20/22 09:14 AK 04/13/22 04/20/22 08:02 09:07 Wound Center Nurse 1 3. R calf cluster -Combined with other wound No No -Current Size (cm) - Length 3.8 0.5 -Current Size (cm) - Width 1 0.6 -Current Size (cm) - Depth 0.1 0.1 -Total Square Cm 3.8 0.30 -Photo Taken Yes No -Tunneling No No -Undermining/Tunneling No No -Circular Undermining No No -Exudate Amt Medium Medium -Exudate Type Serosanguineous Serosanguineous -Wound Margin Thickened & Thickened & Rolled Under Rolled Under -Granulation Amt Medium (34-66%) Medium (34-66%) -Granulation Quality [place] Red -Slough/Fibrin Yes Yes -Necrosis Amt Large (67-100%) Medium (34-66%) -Necrotic Tissue Type Adherent Slough Adherent Slough -Structure Exposed N/A N/A -Texture (Karolina-wound Skin Appearance) Assessed Assessed -Moisture (Karolina-wound Skin Appearance) Assessed Assessed -Color (Karolina-wound Skin Appearance) Ecchymosis Erythema -Temperature (Karolina-wound Skin No Abnormality No Abnormality Appearance) (Pt Warm) (Pt Warm) -Tenderness on Palpation (Karolina-wound No No Skin Appearance) -Ulcer Cleansing Wound Cleanser Wound Cleanser -Foul Odor after Cleansing No No -Anesthetic Used 5% Lidocaine 5% Lidocaine Gel Gel 2. RLE lateral -Combined with other wound No -Current Size (cm) - Length 5.5 5 -Current Size (cm) - Width 1.8 1.4 -Current Size (cm) - Depth 0.2 0.2 -Total Square Cm 9.90 7.0 -Photo Taken Yes -Epithelialization Medium 34-66% -Tunneling No No -Undermining/Tunneling No No -Circular Undermining No No -Exudate Amt Medium Medium -Exudate Type Serosanguineous Serosanguineous -Wound Margin Thickened & Thickened & Rolled Under Rolled Under -Granulation Amt Medium (34-66%) Medium (34-66%) -Granulation Quality [place] Red -Slough/Fibrin Yes Yes -Necrosis Amt Large (67-100%) Medium (34-66%) -Necrotic Tissue Type Adherent Slough Adherent Slough -Structure Exposed N/A N/A -Texture (Karolina-wound Skin Appearance) Assessed Assessed -Moisture (Karolina-wound Skin Appearance) Assessed Assessed -Color (Karolina-wound Skin Appearance) Assessed, Erythema Ecchymosis -Temperature (Karolina-wound Skin No Abnormality No Abnormality Appearance) (Pt Warm) (Pt Warm) -Tenderness on Palpation (Karolina-wound No No Skin Appearance) -Ulcer Cleansing Wound Cleanser Wound Cleanser -Foul Odor after Cleansing No No -Anesthetic Used 5% Lidocaine 5% Lidocaine Gel Gel 1. LLE lateral cluster -Combined with other wound No No -Current Size (cm) - Length 4.2 4.4 -Current Size (cm) - Width 1.8 2 -Current Size (cm) - Depth 0.2 0.1 -Total Square Cm 7.56 8.8 -Photo Taken Yes -Epithelialization Medium 34-66% -Tunneling No No -Undermining/Tunneling No No -Circular Undermining No No -Exudate Amt Medium Medium -Exudate Type Serosanguineous Serosanguineous -Wound Margin Thickened & Thickened & Rolled Under Rolled Under -Granulation Amt Medium (34-66%) Medium (34-66%) -Granulation Quality [place],Red -Slough/Fibrin Yes Yes -Necrosis Amt Large (67-100%) Medium (34-66%) -Necrotic Tissue Type Adherent Slough Adherent Slough -Structure Exposed N/A N/A -Texture (Karolina-wound Skin Appearance) No Abnormality Assessed -Moisture (Karolina-wound Skin Appearance) Assessed Assessed -Color (Karolina-wound Skin Appearance) Assessed, Assessed, Ecchymosis Erythema -Temperature (Karolina-wound Skin No Abnormality No Abnormality Appearance) (Pt Warm) (Pt Warm) -Tenderness on Palpation (Karolina-wound No No Skin Appearance) -Ulcer Cleansing Wound Cleanser Wound Cleanser -Foul Odor after Cleansing No No -Anesthetic Used 5% Lidocaine 5% Lidocaine Gel Gel Lower Limb Edema Present Yes Right Calf (cm) 39 Right Ankle (cm) 21.2 Left Calf (cm) 38.2 Left Ankle (cm) 21 WC - Nurse 2 - General Ulcer CM Notes Start: 04/13/22 08:02 Freq: Status: Active Protocol: Activity Type Activity Date Activity User E-sign Co-sign Detail Recorded Client Recorded Date Recorded By Document 04/13/22 08:33 MW [id number] 04/13/22 08:58 MW Document 04/20/22 09:18 MW [id number] 04/20/22 10:05 MW 04/13/22 04/20/22 08:33 09:18 Wound Center Nurse 2 3. R calf cluster -Time 08:33 09:18 -Correct Patient Yes Yes -Correct Side, Site, Position Yes Yes -Correct Procedure Yes Yes -Procedure Performed Yes Yes -Type of Procedure Debridement Debridement -Clinical Debridement Subcutaneous Subcutaneous -Tissue Removed Subcutaneous Subcutaneous -Post Debridement (cm) - Length 1.0 0.8 -Post Debridement (cm) - Width 0.8 1.1 -Post Debridement (cm) - Depth 0.2 0.1 -Total Square (Post) (cm) 0.80 0.88 -Area of Debridement (cm) - Length 1.0 0.8 -Area of Debridement (cm) - Width 0.8 1.1 -Total Square (Area) (cm) 0.80 0.88 -Tunneling No No -Undermining/Tunneling No No -Circular Undermining No No -Wound/Ulcer Outcome Not Healed Not Healed -Ulcer Cleansing Rinsed/ Rinsed/ Irrigated with Irrigated with Saline Saline -Foul Odor after Cleansing No No -Bioengineered Tissue No No -Bleeding Controlled with Pressure Pressure -Treatment Response Procedure Procedure Tolerated Well Tolerated Well -Offloading No No -Debridement - Subq, 1st 20sq cm Yes Yes 2. RLE lateral -Time 08:34 10:03 -Correct Patient Yes Yes -Correct Side, Site, Position Yes Yes -Correct Procedure Yes Yes -Procedure Performed Yes Yes -Type of Procedure Debridement Debridement -Clinical Debridement Subcutaneous Subcutaneous -Tissue Removed Subcutaneous Subcutaneous -Post Debridement (cm) - Length 6.0 5.8 -Post Debridement (cm) - Width 2.0 1.9 -Post Debridement (cm) - Depth 0.2 0.2 -Total Square (Post) (cm) 12.00 11.02 -Area of Debridement (cm) - Length 6.0 5.8 -Area of Debridement (cm) - Width 2.0 1.9 -Total Square (Area) (cm) 12.00 11.02 -Tunneling No No -Undermining/Tunneling No No -Circular Undermining No No -Wound/Ulcer Outcome Not Healed Not Healed -Ulcer Cleansing Rinsed/ Rinsed/ Irrigated with Irrigated with Saline Saline -Foul Odor after Cleansing No No -Bioengineered Tissue No No -Bleeding Controlled with Pressure Pressure -Treatment Response Procedure Procedure Tolerated Well Tolerated Well -Offloading No No -Debridement - Subq, 20sq cm No No 1. LLE lateral cluster -Time 08:35 10:03 -Correct Patient Yes Yes -Correct Side, Site, Position Yes Yes -Correct Procedure Yes Yes -Procedure Performed Yes Yes -Type of Procedure Debridement Debridement -Clinical Debridement Subcutaneous Subcutaneous -Tissue Removed Subcutaneous Subcutaneous -Post Debridement (cm) - Length 4.0 4.7 -Post Debridement (cm) - Width 1.4 1.6 -Post Debridement (cm) - Depth 0.2 0.2 -Total Square (Post) (cm) 5.60 7.52 -Area of Debridement (cm) - Length 4.0 4.7 -Area of Debridement (cm) - Width 1.4 1.6 -Total Square (Area) (cm) 5.60 7.52 -Tunneling No No -Undermining/Tunneling No No -Circular Undermining No No -Wound/Ulcer Outcome Not Healed Not Healed -Ulcer Cleansing Rinsed/ Rinsed/ Irrigated with Irrigated with Saline Saline -Foul Odor after Cleansing No No -Bioengineered Tissue No No -Bleeding Controlled with Pressure Pressure -Treatment Response Procedure Procedure Tolerated Well Tolerated Well -Offloading No No -Debridement - Subq, 20sq cm No No Pain Scale: 0-10 Numeric Is Patient Pain Free? Yes Yes WC - Nurse 3 - General Ulcer D/C NN Start: 04/13/22 08:02 Freq: Status: Active Protocol: Activity Type Activity Date Activity User E-sign Co-sign Detail Recorded Client Recorded Date Recorded By Document 04/13/22 09:17 DL [id number] 04/13/22 09:18 DL 04/13/22 09:17 Wound Care Nurse 3 3. R calf cluster -Foul Odor after Cleansing No -Primary Dressing Applied NonAdherent Contact Layer, Promogran Caroline Matter -Primary Dressing Covered/Secured with Dry Gauze & Roll Gauze, Secured with Tape -Promogran Caroline Matter 1 2. RLE lateral -Foul Odor after Cleansing No -Primary Dressing Applied NonAdherent Contact Layer, Promogran Caroline Matter -Primary Dressing Covered/Secured with Dry Gauze & Roll Gauze, Secured with Tape -Promogran Caroline Matter 1 1. LLE lateral cluster -Ulcer Cleansing Rinsed/ Irrigated with Saline -Foul Odor after Cleansing No -Primary Dressing Applied NonAdherent Contact Layer -Other Dressing caroline -Primary Dressing Covered/Secured with Dry Gauze & Roll Gauze, Secured with Tape Treatment Response Procedure Tolerated Well Pain Scale: 0-10 Numeric Is Patient Pain Free? Yes - Visit Discharge Discharge Condition Stable Ambulatory Status Ambulatory Transportation Private Auto Additional Wound Wound debrided: right LE lateral Laterality: Right Type of Debridement: Excisional debridement Anesthesia Used: 4% Lidocaine Solution and 5% Lidocaine Gel Depth: Down to and including healthy tissue and in the subcutaneous layer Percentage of wound debrided: 100 Instrument Used: 5mm curette, #15 blade and Forceps Tissue Removed: Yellow slough, devitalized tissue Severity: Fat Layer Exposed Amount of bleeding with debridement: Mild Bleeding Controlled with: Compression and gauze Patient tolerated procedure: Patient tolerated procedure well Additional Wound Wound debrided: LLE cluster Laterality: Left Type of Debridement: Excisional debridement Anesthesia Used: 4% Lidocaine Solution and 5% Lidocaine Gel Depth: Down to and including healthy tissue and in the subcutaneous layer Percentage of wound debrided: 100 Instrument Used: 5mm curette, #15 blade and Forceps Tissue Removed: Yellow slough, devitalized tissue Severity: Fat Layer Exposed Amount of bleeding with debridement: Mild Bleeding Controlled with: Compression and gauze Patient tolerated procedure: Patient tolerated procedure well Assessment/Plan Assessment/Plan (1) Open wound of left lower leg due to dog bite: CODE(S): S81.852A - Open bite, left lower leg, initial encounter; W54.0XXA - Bitten by dog, initial encounter (2) Open wound of right lower leg due to dog bite: CODE(S): S81.851A - Open bite, right lower leg, initial encounter; W54.0XXA - Bitten by dog, initial encounter PLAN: Plan Debridement performed today in clinic as annotated above. At home wound-care instructions: Will have her change dressing to collagen hydrogel and Adaptic to wounds and cover with gauze changed daily for light drainage. Secure with tape. Keep dressing clean and dry. Off-loading: The patient was instructed to avoid pressure and friction on the affected areas. Reposition every 2 hours at minimum. Avoid prolonged standing and/or dangling of legs. When seated, feet should be elevated at chest level. Frequent ambulation is encouraged. Diet: Patient encouraged to increase protein intake while taking caution to avoid high carbohydrate and/or sugar intake. Labs/cultures/imaging: Wound culture was negative for infection. Follow-up: Return in 2 weeks for wound care follow up, [place] on Monday 04/30. Return sooner or report to the emergency room should symptoms worsen, or new symptoms arise. Note: [email or web address] mobile speech recognition printing supplies sales representative software was used to create portions of this document. Sound-alike and misspelled words, as well as other printing supplies sales representative errors may be contained in the documentation.
[2022-04-30 14:48] VITALS: BP 128/75; PULSE 68; TEMP 36.1; BMI 32.3
== END 2022-05-02 23:59 | disposition home or self-care (01) ==
LOC: WC 14:30
PROVIDERS: PCP Family Medicine; Visit Provider Family Medicine
DX: S81.852A Open bite, left lower leg, initial encounter (principal); E11.40 Type 2 diabetes mellitus with diabetic neuropathy, unspecified; M25.552 Pain in left hip; R60.0 Localized edema; M25.551 Pain in right hip; S81.851A Open bite, right lower leg, initial encounter; W54.0XXA Bitten by dog, initial encounter; Z87.891 Personal history of nicotine dependence
CPT/HCPCS: 11042; 87070; 87075; 87205; 99213; G0463

== ENCOUNTER 2022-06-01 09:30 | Outpatient (RCR) | payer MEDICARE, SELFPAY ==
[2022-05-03 00:40] VITALS: BP 128/75; PULSE 68; RESP 18; TEMP 36.1; BMI 32.3
[2022-05-04 09:32] VITALS: BP 168/93; PULSE 76; RESP 18; TEMP 36.1; BMI 32.3
--- NOTE | 2022-05-04 14:23 | PCM.WC.PN ---
History of Present Illness Date of Service: 05/04/22 Chief Complaint: dog bites to bilateral lower legs History of Wound: Vickie is a pleasant 67 yo woman that presents to the wound healing center upon referral from the ER in [place] for wounds from a dog bite that occurred on 04/08/22. She was attempting to return a puppy that had run off to its human resources supervisor and one of the human resources supervisor's other dogs attacked Vickie and bit her multiple times on the legs. She went to the ER and was treated and started on Amoxicillin/clavulanate 500/125 BID. The wounds were cleaned and skin flap was excised from the right calf wound. She has been dressing the wounds with adaptic and Aquacel for the last several days. The drainage is moderate. She has had some pain. Denies fever or chills. She did receive updated tetanus in ER. She has approx. 3 days left to antibiotic that she received in ER. 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 She is otherwise healthy and not taking any medications. Subjective Subjective She is tolerating wound dressings and has not had any increase in drainage or erythema. Wound cultures were negative. She denies fever, chills, increased erythema or drainage. Objective Data Objective Data Vital Signs: Vital Signs Temp Pulse Resp BP O2 Del Method 97 F L 76 18 168/93 H Room Air 05/04/22 09:32 05/04/22 09:32 05/04/22 09:32 05/04/22 09:32 05/04/22 09:32 Oxygen Delivery Method Room Air Weight: 72.575 kg Body Mass Index (BMI) 32.3 Physical Exam Const alert, oriented x3 and no apparent distress General Appearance: cooperative and comfortable HEENT normocephalic and head/scalp atraumatic Resp normal respiratory effort Effort and Inspection: able to speak in complete sentences Cardio regular rate and regular rhythm Skin Wounds: wounds noted Wound Narrative: as in clinical panel Psych mental status grossly normal, thought process normal, cooperative and affect normal Debridement Note Debridement Note Wound debrided: right calf cluster Laterality: Right Type of Debridement: Excisional debridement Anesthesia Used: 4% Lidocaine Solution and 5% Lidocaine Gel Depth: Down to and including healthy tissue and in the subcutaneous layer Percentage of wound debrided: 100 Instrument Used: 5mm curette Tissue Removed: Yellow slough, devitalized tissue Severity: Fat Layer Exposed Amount of bleeding with debridement: Mild Bleeding Controlled with: Pressure Patient tolerated procedure: Patient tolerated procedure well Post-Debridement Measurements and Additional Note: Post-Debridement Measurements/Treatment - Nurse 1 - General Ulcer Assessment Start: 05/04/22 09:29 Freq: Status: Active Protocol: FARHAN Activity Type Activity Date Activity User E-sign Co-sign Detail Recorded Client Recorded Date Recorded By Document 05/04/22 09:32 VT [id number] 05/04/22 09:44 VT 05/04/22 09:32 - Today's Visit Information Type of service 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 ) Arrival Mode Ambulatory Patient Identification Verified (Name & Yes ) Height and Weight Body Mass Index (BMI) 32.3 BMI Classification Obese Vital Signs Temperature (97.8 F-99.1 F) 97 F L Temperature Source Temporal Pulse Rate (60-100) 76 Pulse Location Monitor Respiratory Rate (12-18) 18 Respiratory rate source Observation Oxygen Delivery Method Room Air Blood Pressure (90/60-120/80) 168/93 H Blood Pressure Mean (mm Hg) 118 Source Monitor Position Sitting Blood Pressure Location Right Arm History Since Last Visit- (Skip if this is Patient's initial visit) Have you been in the hospital since your No last visit? Has dressing in place as prescribed Yes Has compression in place as prescribed Yes Has offloadiing in place as prescribed Yes Experienced any changes in pain level or Yes management Left Footwear Regular Shoe Right Footwear Regular Shoe Pain Scale: 0-10 Numeric Is Patient Pain Free? Yes - Nurse 1 - General Ulcer Measurement Start: 05/04/22 09:29 Freq: Status: Active Protocol: Activity Type Activity Date Activity User E-sign Co-sign Detail Recorded Client Recorded Date Recorded By Document 05/04/22 09:32 VT [id number] 05/04/22 09:44 VT 05/04/22 09:32 Wound Center Nurse 1 3. R calf cluster -Current Size (cm) - Length 5 -Current Size (cm) - Width 1.9 -Current Size (cm) - Depth 0.1 -Total Square Cm 9.5 -Exudate Amt Medium -Exudate Type Serosanguineous -Wound Margin Flat & Intact -Granulation Amt Large (67-100%) -Granulation Quality Pale,[place] -Necrosis Amt Small (1-33%) -Necrotic Tissue Type Adherent Slough -Texture (Karolina-wound Skin Appearance) Assessed -Moisture (Karolina-wound Skin Appearance) Assessed -Color (Karolina-wound Skin Appearance) Assessed -Temperature (Karolina-wound Skin No Abnormality Appearance) (Pt Warm) -Tenderness on Palpation (Karolina-wound No Skin Appearance) -Ulcer Cleansing Soap and Water -Foul Odor after Cleansing No -Anesthetic Used 4% Lidocaine Solution 2. RLE lateral -Current Size (cm) - Length 0.1 -Current Size (cm) - Width 0.1 -Current Size (cm) - Depth 0.1 -Total Square Cm 0.01 -Exudate Amt None Present -Wound Margin Flat & Intact -Granulation Amt Large (67-100%) -Granulation Quality Pale,[place],Red -Texture (Karolina-wound Skin Appearance) Assessed -Moisture (Karolina-wound Skin Appearance) Assessed -Color (Karolina-wound Skin Appearance) Assessed -Temperature (Karolina-wound Skin No Abnormality Appearance) (Pt Warm) -Tenderness on Palpation (Karolina-wound No Skin Appearance) -Ulcer Cleansing Soap and Water -Foul Odor after Cleansing No -Anesthetic Used 4% Lidocaine Solution 1. LLE lateral cluster -Current Size (cm) - Length 0.1 -Current Size (cm) - Width 0.1 -Current Size (cm) - Depth 0.1 -Total Square Cm 0.01 Lower Limb Edema Present NA WC - Nurse 2 - General Ulcer CM Notes Start: 05/04/22 09:29 Freq: Status: Active Protocol: Activity Type Activity Date Activity User E-sign Co-sign Detail Recorded Client Recorded Date Recorded By Document 05/04/22 09:59 MW [id number] 05/04/22 10:17 MW 05/04/22 09:59 Wound Center Nurse 2 3. R calf cluster -Time 09:59 -Correct Patient Yes -Correct Side, Site, Position Yes -Correct Procedure Yes -Procedure Performed Yes -Type of Procedure Debridement -Clinical Debridement Subcutaneous -Tissue Removed Subcutaneous -Post Debridement (cm) - Length 0.5 -Post Debridement (cm) - Width 0.4 -Post Debridement (cm) - Depth 0.2 -Total Square (Post) (cm) 0.20 -Area of Debridement (cm) - Length 0.5 -Area of Debridement (cm) - Width 0.4 -Total Square (Area) (cm) 0.20 -Tunneling No -Undermining/Tunneling No -Circular Undermining No -Wound/Ulcer Outcome Not Healed -Ulcer Cleansing Rinsed/ Irrigated with Saline -Foul Odor after Cleansing No -Bioengineered Tissue No -Bleeding Controlled with Pressure -Treatment Response Procedure Tolerated Well -Offloading No -Debridement - Subq, 1st 20sq cm Yes 2. RLE lateral -Time 10:02 -Correct Patient Yes -Correct Side, Site, Position Yes -Correct Procedure Yes -Procedure Performed Yes -Type of Procedure Debridement -Clinical Debridement Subcutaneous -Tissue Removed Subcutaneous -Post Debridement (cm) - Length 5.4 -Post Debridement (cm) - Width 1.7 -Post Debridement (cm) - Depth 0.2 -Total Square (Post) (cm) 9.18 -Area of Debridement (cm) - Length 5.4 -Area of Debridement (cm) - Width 1.7 -Total Square (Area) (cm) 9.18 -Tunneling No -Undermining/Tunneling No -Circular Undermining No -Wound/Ulcer Outcome Not Healed -Ulcer Cleansing Rinsed/ Irrigated with Saline -Foul Odor after Cleansing No -Bioengineered Tissue No -Bleeding Controlled with Pressure -Treatment Response Procedure Tolerated Well -Offloading No -Debridement - Subq, 1st 20sq cm No 1. LLE lateral cluster -Time 10:02 -Correct Patient Yes -Correct Side, Site, Position Yes -Correct Procedure Yes -Procedure Performed Yes -Type of Procedure Debridement -Clinical Debridement Subcutaneous -Tissue Removed Subcutaneous -Post Debridement (cm) - Length 3.8 -Post Debridement (cm) - Width 0.9 -Post Debridement (cm) - Depth 0.1 -Total Square (Post) (cm) 3.42 -Area of Debridement (cm) - Length 3.8 -Area of Debridement (cm) - Width 0.9 -Total Square (Area) (cm) 3.42 -Tunneling No -Undermining/Tunneling No -Circular Undermining No -Wound/Ulcer Outcome Not Healed -Ulcer Cleansing Rinsed/ Irrigated with Saline -Foul Odor after Cleansing No -Bioengineered Tissue No -Bleeding Controlled with Pressure -Treatment Response Procedure Tolerated Well -Offloading No -Debridement - Subq, 1st 20sq cm No Pain Scale: 0-10 Numeric Is Patient Pain Free? Yes - Nurse 3 - General Ulcer D/C NN Start: 05/04/22 09:29 Freq: Status: Active Protocol: Activity Type Activity Date Activity User E-sign Co-sign Detail Recorded Client Recorded Date Recorded By Document 05/04/22 10:34 VT [id number] 05/04/22 10:41 VT 05/04/22 10:34 Wound Care Nurse 3 3. R calf cluster -Primary Dressing Applied C Hydrogel ($) Pain Scale: 0-10 Numeric Is Patient Pain Free? Yes - Visit Discharge Discharge Condition Stable Ambulatory Status Ambulatory Transportation Private Auto Medication Reconcilliation completed & No provided to patient/care provider Clinical Summary of Care Provided Yes Notes: hydrogel and adaptic to all wounds and gauze and tape Additional Wound Wound debrided: right LE lateral Laterality: Right Type of Debridement: Excisional debridement Anesthesia Used: 4% Lidocaine Solution and 5% Lidocaine Gel Depth: Down to and including healthy tissue and in the subcutaneous layer Percentage of wound debrided: 100 Instrument Used: 5mm curette Tissue Removed: Yellow slough, devitalized tissue Severity: Fat Layer Exposed Amount of bleeding with debridement: Mild Bleeding Controlled with: Compression and gauze Patient tolerated procedure: Patient tolerated procedure well Additional Wound Wound debrided: LLE cluster Laterality: Left Type of Debridement: Excisional debridement Anesthesia Used: 4% Lidocaine Solution and 5% Lidocaine Gel Depth: Down to and including healthy tissue and in the subcutaneous layer Percentage of wound debrided: 100 Instrument Used: 5mm curette Tissue Removed: Yellow slough, devitalized tissue Severity: Fat Layer Exposed Amount of bleeding with debridement: Mild Bleeding Controlled with: Compression and gauze Patient tolerated procedure: Patient tolerated procedure well Assessment/Plan Assessment/Plan (1) Open wound of left lower leg due to dog bite: CODE(S): S81.852A - Open bite, left lower leg, initial encounter; W54.0XXA - Bitten by dog, initial encounter (2) Open wound of right lower leg due to dog bite: CODE(S): S81.851A - Open bite, right lower leg, initial encounter; W54.0XXA - Bitten by dog, initial encounter PLAN: Plan Debridement performed today in clinic as annotated above. At home wound-care instructions: Will have her change dressing to collagen hydrogel and Adaptic to wounds and cover with gauze changed daily for light drainage. Secure with tape. Keep dressing clean and dry. Off-loading: The patient was instructed to avoid pressure and friction on the affected areas. Reposition every 2 hours at minimum. Avoid prolonged standing and/or dangling of legs. When seated, feet should be elevated at chest level. Frequent ambulation is encouraged. Diet: Patient encouraged to increase protein intake while taking caution to avoid high carbohydrate and/or sugar intake. Labs/cultures/imaging: Wound culture was negative for infection. Follow-up: Return in 1 week for wound care follow up. Return sooner or report to the emergency room should symptoms worsen, or new symptoms arise. Note: [employer] speech recognition medical staff credentialing coordinator software was used to create portions of this document. Sound-alike and misspelled words, as well as other medical staff credentialing coordinator errors may be contained in the documentation.
[2022-05-11 09:32] VITALS: BP 151/73; PULSE 96; RESP 20; TEMP 36.8; BMI 32.3
--- NOTE | 2022-05-11 10:34 | PCM.WC.PN ---
History of Present Illness Date of Service: 05/11/22 Chief Complaint: dog bites to bilateral lower legs History of Wound: Vickie is a pleasant 67 yo woman that presents to the wound healing center upon referral from the ER in [place] for wounds from a dog bite that occurred on 04/08/22. She was attempting to return a puppy that had run off to its caravan park and camping ground manager and one of the caravan park and camping ground manager's other dogs attacked Vickie and bit her multiple times on the legs. She went to the ER and was treated and started on Amoxicillin/clavulanate 500/125 BID. The wounds were cleaned and skin flap was excised from the right calf wound. She has been dressing the wounds with adaptic and Aquacel for the last several days. The drainage is moderate. She has had some pain. Denies fever or chills. She did receive updated tetanus in ER. She has approx. 3 days left to antibiotic that she received in ER. 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 She is otherwise healthy and not taking any medications. Subjective Subjective She is tolerating wound dressings and has not had any increase in drainage or erythema. Wound cultures were negative. She denies fever, chills, increased erythema or drainage. Objective Data Objective Data Vital Signs: Vital Signs Temp Pulse Resp BP O2 Del Method 98.2 F 96 20 H 151/73 H Room Air 05/11/22 09:32 05/11/22 09:32 05/11/22 09:32 05/11/22 09:32 05/04/22 09:32 Oxygen Delivery Method Room Air Weight: 72.575 kg Body Mass Index (BMI) 32.3 Physical Exam Const alert, oriented x3 and no apparent distress General Appearance: cooperative and comfortable HEENT normocephalic and head/scalp atraumatic Resp normal respiratory effort Effort and Inspection: able to speak in complete sentences Cardio regular rate and regular rhythm Skin Wounds: wounds noted Wound Narrative: as in clinical panel Psych mental status grossly normal, thought process normal, cooperative and affect normal Debridement Note Debridement Note Wound debrided: right calf cluster Laterality: Right Type of Debridement: Excisional debridement Anesthesia Used: 4% Lidocaine Solution and 5% Lidocaine Gel Depth: Down to and including healthy tissue and in the subcutaneous layer Percentage of wound debrided: 100 Instrument Used: 5mm curette Tissue Removed: Yellow slough, devitalized tissue Severity: Fat Layer Exposed Amount of bleeding with debridement: Mild Bleeding Controlled with: Pressure Patient tolerated procedure: Patient tolerated procedure well Post-Debridement Measurements and Additional Note: Post-Debridement Measurements/Treatment HI - Nurse 1 - General Ulcer Assessment Start: 05/04/22 09:29 Freq: Status: Active Protocol: FARHAN Activity Type Activity Date Activity User E-sign Co-sign Detail Recorded Client Recorded Date Recorded By Document 05/04/22 09:32 MT [id number] 05/04/22 09:44 MT Document 05/11/22 09:32 DL [id number] 05/11/22 09:40 DL 05/04/22 05/11/22 09:32 09:32 HI - Today's Visit Information Type of service Follow-up Visit Follow-up Visit (Physician/BILINGUAL SPEECH THERAPIST (Physician/BILINGUAL SPEECH THERAPIST ) ) Arrival Mode Ambulatory Ambulatory Transfer Assistance None Patient Identification Verified (Name & Yes Yes ) Patient Requires Transmission-Based No Precautions Height and Weight Body Mass Index (BMI) 32.3 32.3 BMI Classification Obese Obese Vital Signs Temperature (97.8 F-99.1 F) 97 F L 98.2 F Temperature Source Temporal Temporal Pulse Rate (60-100) 76 96 Pulse Location Monitor Monitor Respiratory Rate (12-18) 18 20 H Respiratory rate source Observation Observation Oxygen Delivery Method Room Air Blood Pressure (90/60-120/80) 168/93 H 151/73 H Blood Pressure Mean (mm Hg) 118 99 Source Monitor Monitor Position Sitting Blood Pressure Location Right Arm History Since Last Visit- (Skip if this is Patient's initial visit) Have you changed medications since your No last visit? Any new allergies or adverse reactions No Had a fall/change in ADL's that may No increase risk of falls Signs or symptoms of abuse and/or No neglect since last visit Have you been in the hospital since your No No last visit? Has dressing in place as prescribed Yes Yes Has compression in place as prescribed Yes N/A Has offloadiing in place as prescribed Yes N/A Experienced any changes in pain level or Yes No management Left Footwear Regular Shoe Right Footwear Regular Shoe Pain Scale: 0-10 Numeric Is Patient Pain Free? Yes Yes WC - Nurse 1 - General Ulcer Measurement Start: 05/04/22 09:29 Freq: Status: Active Protocol: Activity Type Activity Date Activity User E-sign Co-sign Detail Recorded Client Recorded Date Recorded By Document 05/04/22 09:32 MT [id number] 05/04/22 09:44 MT Document 05/11/22 09:32 DL [id number] 05/11/22 09:40 DL 05/04/22 05/11/22 09:32 09:32 Wound Center Nurse 1 3. R calf cluster -Current Size (cm) - Length 5 0.3 -Current Size (cm) - Width 1.9 0.6 -Current Size (cm) - Depth 0.1 0.1 -Total Square Cm 9.5 0.18 -Photo Taken No -Exudate Amt Medium None Present -Exudate Type Serosanguineous -Wound Margin Flat & Intact Distinct, Outline Attached -Granulation Amt Large (67-100%) None Present (0 %) -Granulation Quality Pale,[place] -Necrosis Amt Small (1-33%) Small (1-33%) -Necrotic Tissue Type Adherent Slough Adherent Slough -Structure Exposed N/A -Texture (Karolina-wound Skin Appearance) Assessed Scarring -Moisture (Karolina-wound Skin Appearance) Assessed No Abnormality -Color (Karolina-wound Skin Appearance) Assessed Erythema -Temperature (Karolina-wound Skin No Abnormality No Abnormality Appearance) (Pt Warm) (Pt Warm) -Tenderness on Palpation (Karolina-wound No Skin Appearance) -Ulcer Cleansing Soap and Water Wound Cleanser -Foul Odor after Cleansing No No -Anesthetic Used 4% Lidocaine 5% Lidocaine Solution Gel 2. RLE lateral -Current Size (cm) - Length 0.1 5.2 -Current Size (cm) - Width 0.1 1.8 -Current Size (cm) - Depth 0.1 0.2 -Total Square Cm 0.01 9.36 -Photo Taken No -Exudate Amt None Present Small -Exudate Type Serosanguineous -Wound Margin Flat & Intact Distinct, Outline Attached -Granulation Amt Large (67-100%) Medium (34-66%) -Granulation Quality Pale,[place],Red Red -Necrosis Amt Medium (34-66%) -Necrotic Tissue Type Adherent Slough -Texture (Karolina-wound Skin Appearance) Assessed Scarring -Moisture (Karolina-wound Skin Appearance) Assessed No Abnormality -Color (Karolina-wound Skin Appearance) Assessed Erythema -Temperature (Karolina-wound Skin No Abnormality No Abnormality Appearance) (Pt Warm) (Pt Warm) -Tenderness on Palpation (Karolina-wound No Skin Appearance) -Ulcer Cleansing Soap and Water Rinsed/ Irrigated with Saline -Foul Odor after Cleansing No No -Anesthetic Used 4% Lidocaine 5% Lidocaine Solution Gel 1. LLE lateral cluster -Current Size (cm) - Length 0.1 3.5 -Current Size (cm) - Width 0.1 1.5 -Current Size (cm) - Depth 0.1 0.1 -Total Square Cm 0.01 5.25 -Photo Taken No -Exudate Amt Small -Exudate Type Serosanguineous -Wound Margin Distinct, Outline Attached -Granulation Amt None Present (0 %) -Necrosis Amt Large (67-100%) -Necrotic Tissue Type Adherent Slough -Structure Exposed N/A -Texture (Karolina-wound Skin Appearance) Scarring -Moisture (Karolina-wound Skin Appearance) No Abnormality -Color (Karolina-wound Skin Appearance) Erythema -Temperature (Karolina-wound Skin No Abnormality Appearance) (Pt Warm) -Ulcer Cleansing Rinsed/ Irrigated with Saline -Foul Odor after Cleansing No -Anesthetic Used 5% Lidocaine Gel Lower Limb Edema Present NA WC - Nurse 2 - General Ulcer CM Notes Start: 05/04/22 09:29 Freq: Status: Active Protocol: Activity Type Activity Date Activity User E-sign Co-sign Detail Recorded Client Recorded Date Recorded By Document 05/04/22 09:59 MW [id number] 05/04/22 10:17 MW Document 05/11/22 09:47 MW [id number] 05/11/22 10:05 MW 05/04/22 05/11/22 09:59 09:47 Wound Center Nurse 2 3. R calf cluster -Time 09:59 09:51 -Correct Patient Yes Yes -Correct Side, Site, Position Yes Yes -Correct Procedure Yes Yes -Procedure Performed Yes Yes -Type of Procedure Debridement Debridement -Clinical Debridement Subcutaneous Subcutaneous -Tissue Removed Subcutaneous Subcutaneous -Post Debridement (cm) - Length 0.5 0.4 -Post Debridement (cm) - Width 0.4 0.2 -Post Debridement (cm) - Depth 0.2 0.1 -Total Square (Post) (cm) 0.20 0.08 -Area of Debridement (cm) - Length 0.5 0.4 -Area of Debridement (cm) - Width 0.4 0.2 -Total Square (Area) (cm) 0.20 0.08 -Tunneling No No -Undermining/Tunneling No No -Circular Undermining No No -Wound/Ulcer Outcome Not Healed Not Healed -Ulcer Cleansing Rinsed/ Rinsed/ Irrigated with Irrigated with Saline Saline -Foul Odor after Cleansing No No -Bioengineered Tissue No No -Bleeding Controlled with Pressure Pressure -Treatment Response Procedure Procedure Tolerated Well Tolerated Well -Offloading No No -Debridement - Subq, 1st 20sq cm Yes Yes 2. RLE lateral -Time 10: 09:51 -Correct Patient Yes Yes -Correct Side, Site, Position Yes Yes -Correct Procedure Yes Yes -Procedure Performed Yes Yes -Type of Procedure Debridement Debridement -Clinical Debridement Subcutaneous Subcutaneous -Tissue Removed Subcutaneous Subcutaneous -Post Debridement (cm) - Length 5.4 5.2 -Post Debridement (cm) - Width 1.7 1.8 -Post Debridement (cm) - Depth 0.2 0.1 -Total Square (Post) (cm) 9.18 9.36 -Area of Debridement (cm) - Length 5.4 5.2 -Area of Debridement (cm) - Width 1.7 1.8 -Total Square (Area) (cm) 9.18 9.36 -Tunneling No No -Undermining/Tunneling No No -Circular Undermining No No -Wound/Ulcer Outcome Not Healed Not Healed -Ulcer Cleansing Rinsed/ Rinsed/ Irrigated with Irrigated with Saline Saline -Foul Odor after Cleansing No No -Bioengineered Tissue No No -Bleeding Controlled with Pressure Pressure -Treatment Response Procedure Procedure Tolerated Well Tolerated Well -Offloading No No -Debridement - Subq, 1st 20sq cm No No 1. LLE lateral cluster -Time 10:02 09:52 -Correct Patient Yes Yes -Correct Side, Site, Position Yes Yes -Correct Procedure Yes Yes -Procedure Performed Yes Yes -Type of Procedure Debridement Debridement -Clinical Debridement Subcutaneous Subcutaneous -Tissue Removed Subcutaneous Subcutaneous -Post Debridement (cm) - Length 3.8 0.9 -Post Debridement (cm) - Width 0.9 0.7 -Post Debridement (cm) - Depth 0.1 0.2 -Total Square (Post) (cm) 3.42 0.63 -Area of Debridement (cm) - Length 3.8 0.9 -Area of Debridement (cm) - Width 0.9 0.7 -Total Square (Area) (cm) 3.42 0.63 -Tunneling No No -Undermining/Tunneling No No -Circular Undermining No No -Wound/Ulcer Outcome Not Healed Not Healed -Ulcer Cleansing Rinsed/ Rinsed/ Irrigated with Irrigated with Saline Saline -Foul Odor after Cleansing No No -Bioengineered Tissue No No -Bleeding Controlled with Pressure Pressure -Treatment Response Procedure Procedure Tolerated Well Tolerated Well -Offloading No No -Debridement - Subq, 1st 20sq cm No No Pain Scale: 0-10 Numeric Is Patient Pain Free? Yes Yes - Nurse 3 - General Ulcer D/C NN Start: 05/04/22 09:29 Freq: Status: Active Protocol: Activity Type Activity Date Activity User E-sign Co-sign Detail Recorded Client Recorded Date Recorded By Document 05/04/22 10:34 WV [id number] 05/04/22 10:41 WV Document 05/11/22 10:23 RB [id number] 05/11/22 10:24 RB 05/04/22 05/11/22 10:34 10:23 Wound Care Nurse 3 3. R calf cluster -Primary Dressing Applied C Hydrogel ($) C Hydrogel ($), NonAdherent Contact Layer -Primary Dressing Covered/Secured with Dry Gauze,Dry Gauze & Roll Gauze,Secured with Tape 2. RLE lateral -Primary Dressing Applied NonAdherent Contact Layer -Other Dressing hydrogel -Primary Dressing Covered/Secured with Dry Gauze,Dry Gauze & Roll Gauze,Secured with Tape 1. LLE lateral cluster -Primary Dressing Applied NonAdherent Contact Layer -Other Dressing hydrogel -Primary Dressing Covered/Secured with Dry Gauze,Dry Gauze & Roll Gauze,Secured with Tape Treatment Response Procedure Tolerated Well Pain Scale: 0-10 Numeric Is Patient Pain Free? Yes Yes - Visit Discharge Discharge Condition Stable Stable Ambulatory Status Ambulatory Ambulatory Transportation Private Auto Private Auto Medication Reconcilliation completed & No No provided to patient/care provider Clinical Summary of Care Provided Yes Yes Notes: hydrogel and adaptic to all wounds and gauze and tape Additional Wound Wound debrided: right LE lateral Laterality: Right Type of Debridement: Excisional debridement Anesthesia Used: 4% Lidocaine Solution and 5% Lidocaine Gel Depth: Down to and including healthy tissue and in the subcutaneous layer Percentage of wound debrided: 100 Instrument Used: 5mm curette Tissue Removed: Yellow slough, devitalized tissue Severity: Fat Layer Exposed Amount of bleeding with debridement: Mild Bleeding Controlled with: Compression and gauze Patient tolerated procedure: Patient tolerated procedure well Additional Wound Wound debrided: LLE cluster Laterality: Left Type of Debridement: Excisional debridement Anesthesia Used: 4% Lidocaine Solution and 5% Lidocaine Gel Depth: Down to and including healthy tissue and in the subcutaneous layer Percentage of wound debrided: 100 Instrument Used: 5mm curette Tissue Removed: Yellow slough, devitalized tissue Severity: Fat Layer Exposed Amount of bleeding with debridement: Mild Bleeding Controlled with: Compression and gauze Patient tolerated procedure: Patient tolerated procedure well Assessment/Plan Assessment/Plan (1) Open wound of left lower leg due to dog bite: CODE(S): S81.852A - Open bite, left lower leg, initial encounter; W54.0XXA - Bitten by dog, initial encounter (2) Open wound of right lower leg due to dog bite: CODE(S): S81.851A - Open bite, right lower leg, initial encounter; W54.0XXA - Bitten by dog, initial encounter PLAN: Plan Debridement performed today in clinic as annotated above. At home wound-care instructions: Will have her change dressing to collagen hydrogel and Adaptic to wounds and cover with gauze changed daily for light drainage. Secure with tape. Keep dressing clean and dry. Off-loading: The patient was instructed to avoid pressure and friction on the affected areas. Reposition every 2 hours at minimum. Avoid prolonged standing and/or dangling of legs. When seated, feet should be elevated at chest level. Frequent ambulation is encouraged. Diet: Patient encouraged to increase protein intake while taking caution to avoid high carbohydrate and/or sugar intake. Labs/cultures/imaging: Wound culture was negative for infection. Follow-up: Return in 1 week for wound care follow up. Return sooner or report to the emergency room should symptoms worsen, or new symptoms arise. Note: Dragon speech recognition storage and backup administrator software was used to create portions of this document. Sound-alike and misspelled words, as well as other storage and backup administrator errors may be contained in the documentation.
[2022-05-18 09:48] VITALS: BP 151/92; PULSE 107; RESP 18; TEMP 36.6; BMI 32.3
--- NOTE | 2022-05-18 10:50 | VDLE_ITS ---
Reason For Study: Calf pain RIGHT LEFT GSV is normal. CFV is compressible, spontaneous, phasic, CFV is compressible, spontaneous, phasic, competent, and demonstrates normal competent and demonstrates normal augmentation. augmentation. FV is compressible, spontaneous, phasic, competent and demonstrates normal augmentation. POP V is compressible, spontaneous, phasic, competent and demonstrates normal augmentation. T/P Trunk is compressible. PTV is compressible. RT PerV is compressible. Procedure This is a venous duplex using B-mode, color flow and spectral Doppler. Exam performed in department. A preliminary report was called and/or faxed to Della @ [facility]. VL/Venous Duplex US, Unilateral Interpretation Summary Deep veins of the right lower extremity are patent and compressible segmentally . There is no evidence of right lower extremity deep vein thrombosis. Valvular competence adore ears intact within the proximal deep venous system on the right . The right great saphenous vein a ppears patent and compressible segmentally. Ordering Physician: Ines Hull Referring Physician: Juan Brand Performed By: Cassy Mason RVT
--- NOTE | 2022-05-18 14:01 | PN.PCM_ITS ---
History of Present Illness Date of Service: 05/18/22 Chief Complaint: dog bites to bilateral lower legs History of Wound: Vickie is a pleasant 67 yo woman that presents to the wound healing center upon referral from the ER in [place] for wounds from a dog bite that occurred on 04/08/22. She was attempting to return a puppy that had run off to its legal arbitrator and one of the legal arbitrator's other dogs attacked Vickie and bit her multiple times on the legs. She went to the ER and was treated and started on Amoxicillin/clavulanate 500/125 BID. The wounds were cleaned and skin flap was excised from the right calf wound. She has been dressing the wounds with adaptic and Aquacel for the last several days. The drainage is moderate. She has had some pain. Denies fever or chills. She did receive updated tetanus in ER. She has approx. 3 days left to antibiotic that she received in ER. 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 She is otherwise healthy and not taking any medications. Subjective Subjective She is tolerating wound dressings and has not had any increase in drainage or erythema. Wound cultures were negative. She denies fever, chills, increased erythema or drainage. Objective Data Objective Data Vital Signs: Vital Signs Temp Pulse Resp BP O2 Del Method 97.8 F 107 H 18 151/92 H Room Air 05/18/22 09:48 05/18/22 09:48 05/18/22 09:48 05/18/22 09:48 05/04/22 09:32 Oxygen Delivery Method Room Air Weight: 72.575 kg Body Mass Index (BMI) 32.3 Physical Exam Const alert, oriented x3 and no apparent distress General Appearance: cooperative and comfortable HEENT normocephalic and head/scalp atraumatic Resp normal respiratory effort Effort and Inspection: able to speak in complete sentences Cardio regular rate and regular rhythm Skin Wounds: wounds noted Wound Narrative: as in clinical panel Psych mental status grossly normal, thought process normal, cooperative and affect normal Debridement Note Debridement Note Wound debrided: right calf cluster Laterality: Right Type of Debridement: Excisional debridement Anesthesia Used: 4% Lidocaine Solution and 5% Lidocaine Gel Depth: Down to and including healthy tissue and in the subcutaneous layer Percentage of wound debrided: 100 Instrument Used: 5mm curette Tissue Removed: Yellow slough, devitalized tissue Severity: Fat Layer Exposed Amount of bleeding with debridement: Mild Bleeding Controlled with: Pressure Patient tolerated procedure: Patient tolerated procedure well Post-Debridement Measurements and Additional Note: Post-Debridement Measurements/Treatment HI - Nurse 1 - General Ulcer Assessment Start: 05/04/22 09:29 Freq: Status: Active Protocol: FARHAN Activity Type Activity Date Activity User E-sign Co-sign Detail Recorded Client Recorded Date Recorded By Document 05/04/22 09:32 MT [id number] 05/04/22 09:44 MT Document 05/11/22 09:32 DL [id number] 05/11/22 09:40 DL Document 05/18/22 09:48 DL [id number] 05/18/22 09:58 DL 05/04/22 05/11/22 05/18/22 09:32 09:32 09:48 - Today's Visit Information Type of service Follow-up Visit Follow-up Visit Follow-up Visit (Physician/[employer]PENTER [employer]OR SUPERVISOR (Physician/[employer]PENTER LABOR SUPERVISOR (Physician/CARPENTER LABOR SUPERVISOR ) ) ) Arrival Mode Ambulatory Ambulatory Ambulatory Transfer Assistance None None Patient Identification Verified (Name & Yes Yes Yes ) Patient Requires Transmission-Based No No Precautions Height and Weight Body Mass Index (BMI) 32.3 32.3 32.3 BMI Classification Obese Obese Obese Vital Signs Temperature (97.8 F-99.1 F) 97 F L 98.2 F 97.8 F Temperature Source Temporal Temporal Temporal Pulse Rate (60-100) 76 96 107 H Pulse Location Monitor Monitor Monitor Respiratory Rate (12-18) 18 20 H 18 Respiratory rate source Observation Observation Observation Oxygen Delivery Method Room Air Blood Pressure (90/60-120/80) 168/93 H 151/73 H 151/92 H Blood Pressure Mean (mm Hg) 118 99 111 Source Monitor Monitor Monitor Position Sitting Blood Pressure Location Right Arm History Since Last Visit- (Skip if this is Patient's initial visit) Have you changed medications since your No No last visit? Any new allergies or adverse reactions No No Had a fall/change in ADL's that may No No increase risk of falls Signs or symptoms of abuse and/or No No neglect since last visit Have you been in the hospital since your No No No last visit? Has dressing in place as prescribed Yes Yes Yes Has compression in place as prescribed Yes N/A Has offloadiing in place as prescribed Yes N/A N/A Experienced any changes in pain level or Yes No No management Left Footwear Regular Shoe Right Footwear Regular Shoe Pain Scale: 0-10 Numeric Is Patient Pain Free? Yes Yes Yes WC - Nurse 1 - General Ulcer Measurement Start: 05/04/22 09:29 Freq: Status: Active Protocol: Activity Type Activity Date Activity User E-sign Co-sign Detail Recorded Client Recorded Date Recorded By Document 05/04/22 09:32 MT [id number] 05/04/22 09:44 MT Document 05/11/22 09:32 DL [id number] 05/11/22 09:40 DL Document 05/18/22 09:48 DL [id number] 05/18/22 09:58 DL 05/04/22 05/11/22 05/18/22 09:32 09:32 09:48 Wound Center Nurse 1 3. R calf cluster -Current Size (cm) - Length 5 0.3 0.1 -Current Size (cm) - Width 1.9 0.6 0.1 -Current Size (cm) - Depth 0.1 0.1 0.1 -Total Square Cm 9.5 0.18 0.01 -Photo Taken No Yes -Exudate Amt Medium None Present None Present -Exudate Type Serosanguineous -Wound Margin Flat & Intact Distinct, Distinct, Outline Outline Attached Attached -Granulation Amt Large (67-100%) None Present (0 %) -Granulation Quality Pale,[place] Hyper- granulation, [place] -Necrosis Amt Small (1-33%) Small (1-33%) Small (1-33%) -Necrotic Tissue Type Adherent Slough Adherent Slough Adherent Slough -Structure Exposed N/A N/A -Texture (Karolina-wound Skin Appearance) Assessed Scarring Scarring -Moisture (Karolina-wound Skin Appearance) Assessed No Abnormality No Abnormality -Color (Karolina-wound Skin Appearance) Assessed Erythema Assessed -Temperature (Karolina-wound Skin No Abnormality No Abnormality No Abnormality Appearance) (Pt Warm) (Pt Warm) (Pt Warm) -Tenderness on Palpation (Karolina-wound No No Skin Appearance) -Ulcer Cleansing Soap and Water Wound Cleanser Soap and Water -Foul Odor after Cleansing No No -Anesthetic Used 4% Lidocaine 5% Lidocaine 4% Lidocaine Solution Gel Solution 2. RLE lateral -Current Size (cm) - Length 0.1 5.2 4 -Current Size (cm) - Width 0.1 1.8 1.5 -Current Size (cm) - Depth 0.1 0.2 0.2 -Total Square Cm 0.01 9.36 6.0 -Photo Taken No Yes -Exudate Amt None Present Small Medium -Exudate Type Serosanguineous Yellow/Green -Wound Margin Flat & Intact Distinct, Distinct, Outline Outline Attached Attached -Granulation Amt Large (67-100%) Medium (34-66%) Medium (34-66%) -Granulation Quality Pale,[place],Red Red Red -Necrosis Amt Medium (34-66%) Medium (34-66%) -Necrotic Tissue Type Adherent Slough Adherent Slough -Structure Exposed N/A -Texture (Karolina-wound Skin Appearance) Assessed Scarring Scarring -Moisture (Karolina-wound Skin Appearance) Assessed No Abnormality No Abnormality -Color (Karolina-wound Skin Appearance) Assessed Erythema Erythema -Temperature (Karolina-wound Skin No Abnormality No Abnormality No Abnormality Appearance) (Pt Warm) (Pt Warm) (Pt Warm) -Tenderness on Palpation (Karolina-wound No No Skin Appearance) -Ulcer Cleansing Soap and Water Rinsed/ Soap and Water Irrigated with Saline -Foul Odor after Cleansing No No No -Anesthetic Used 4% Lidocaine 5% Lidocaine 4% Lidocaine Solution Gel Solution 1. LLE lateral cluster -Current Size (cm) - Length 0.1 3.5 0.2 -Current Size (cm) - Width 0.1 1.5 0.2 -Current Size (cm) - Depth 0.1 0.1 0.1 -Total Square Cm 0.01 5.25 0.04 -Photo Taken No Yes -Exudate Amt Small Small -Exudate Type Serosanguineous Serosanguineous -Wound Margin Distinct, Distinct, Outline Outline Attached Attached -Granulation Amt None Present (0 Small (1-33%) %) -Granulation Quality [place] -Necrosis Amt Large (67-100%) Small (1-33%) -Necrotic Tissue Type Adherent Slough Eschar -Structure Exposed N/A N/A -Texture (Karolina-wound Skin Appearance) Scarring Scarring -Moisture (Karolina-wound Skin Appearance) No Abnormality No Abnormality -Color (Karolina-wound Skin Appearance) Erythema Assessed -Temperature (Karolina-wound Skin No Abnormality No Abnormality Appearance) (Pt Warm) (Pt Warm) -Ulcer Cleansing Rinsed/ Soap and Water Irrigated with Saline -Foul Odor after Cleansing No -Anesthetic Used 5% Lidocaine 4% Lidocaine Gel Solution Lower Limb Edema Present NA WC - Nurse 2 - General Ulcer CM Notes Start: 05/04/22 09:29 Freq: Status: Active Protocol: Activity Type Activity Date Activity User E-sign Co-sign Detail Recorded Client Recorded Date Recorded By Document 05/04/22 09:59 MW [id number] 05/04/22 10:17 MW Document 05/11/22 09:47 MW [id number] 05/11/22 10:05 MW Document 05/18/22 10:02 MW [id number] 05/18/22 10:20 MW 05/04/22 05/11/22 05/18/22 09:59 09:47 10:02 Wound Center Nurse 2 3. R calf cluster -Time 09:59 09:51 10:02 -Correct Patient Yes Yes Yes -Correct Side, Site, Position Yes Yes Yes -Correct Procedure Yes Yes Yes -Procedure Performed Yes Yes Yes -Type of Procedure Debridement Debridement Debridement -Clinical Debridement Subcutaneous Subcutaneous Subcutaneous -Tissue Removed Subcutaneous Subcutaneous Subcutaneous -Post Debridement (cm) - Length 0.5 0.4 0.3 -Post Debridement (cm) - Width 0.4 0.2 0.2 -Post Debridement (cm) - Depth 0.2 0.1 0.1 -Total Square (Post) (cm) 0.20 0.08 0.06 -Area of Debridement (cm) - Length 0.5 0.4 0.3 -Area of Debridement (cm) - Width 0.4 0.2 0.2 -Total Square (Area) (cm) 0.20 0.08 0.06 -Tunneling No No No -Undermining/Tunneling No No No -Circular Undermining No No No -Wound/Ulcer Outcome Not Healed Not Healed Not Healed -Ulcer Cleansing Rinsed/ Rinsed/ Rinsed/ Irrigated with Irrigated with Irrigated with Saline Saline Saline -Foul Odor after Cleansing No No No -Bioengineered Tissue No No No -Bleeding Controlled with Pressure Pressure Pressure -Treatment Response Procedure Procedure Procedure Tolerated Well Tolerated Well Tolerated Well -Offloading No No No -Debridement - Subq, 1st 20sq cm Yes Yes Yes 2. RLE lateral -Time 10:02 09:51 10:03 -Correct Patient Yes Yes Yes -Correct Side, Site, Position Yes Yes Yes -Correct Procedure Yes Yes Yes -Procedure Performed Yes Yes Yes -Type of Procedure Debridement Debridement Debridement -Clinical Debridement Subcutaneous Subcutaneous Subcutaneous -Tissue Removed Subcutaneous Subcutaneous Subcutaneous -Post Debridement (cm) - Length 5.4 5.2 5.0 -Post Debridement (cm) - Width 1.7 1.8 1.3 -Post Debridement (cm) - Depth 0.2 0.1 0.1 -Total Square (Post) (cm) 9.18 9.36 6.50 -Area of Debridement (cm) - Length 5.4 5.2 5.0 -Area of Debridement (cm) - Width 1.7 1.8 1.3 -Total Square (Area) (cm) 9.18 9.36 6.50 -Tunneling No No No -Undermining/Tunneling No No No -Circular Undermining No No No -Wound/Ulcer Outcome Not Healed Not Healed Not Healed -Ulcer Cleansing Rinsed/ Rinsed/ Rinsed/ Irrigated with Irrigated with Irrigated with Saline Saline Saline -Foul Odor after Cleansing No No No -Bioengineered Tissue No No No -Bleeding Controlled with Pressure Pressure Pressure -Treatment Response Procedure Procedure Procedure Tolerated Well Tolerated Well Tolerated Well -Offloading No No No -Debridement - Subq, 1st 20sq cm No No No 1. LLE lateral cluster -Time 10: 09:52 10:03 -Correct Patient Yes Yes Yes -Correct Side, Site, Position Yes Yes Yes -Correct Procedure Yes Yes Yes -Procedure Performed Yes Yes Yes -Type of Procedure Debridement Debridement Debridement -Clinical Debridement Subcutaneous Subcutaneous Subcutaneous -Tissue Removed Subcutaneous Subcutaneous Subcutaneous -Post Debridement (cm) - Length 3.8 0.9 0.4 -Post Debridement (cm) - Width 0.9 0.7 0.4 -Post Debridement (cm) - Depth 0.1 0.2 0.2 -Total Square (Post) (cm) 3.42 0.63 0.16 -Area of Debridement (cm) - Length 3.8 0.9 0.4 -Area of Debridement (cm) - Width 0.9 0.7 0.4 -Total Square (Area) (cm) 3.42 0.63 0.16 -Tunneling No No No -Undermining/Tunneling No No No -Circular Undermining No No No -Wound/Ulcer Outcome Not Healed Not Healed Not Healed -Ulcer Cleansing Rinsed/ Rinsed/ Rinsed/ Irrigated with Irrigated with Irrigated with Saline Saline Saline -Foul Odor after Cleansing No No No -Bioengineered Tissue No No No -Bleeding Controlled with Pressure Pressure Pressure -Treatment Response Procedure Procedure Procedure Tolerated Well Tolerated Well Tolerated Well -Offloading No No No -Debridement - Subq, 1st 20sq cm No No No Pain Scale: 0-10 Numeric Is Patient Pain Free? Yes Yes Yes WC - Nurse 3 - General Ulcer D/C NN Start: 05/04/22 09:29 Freq: Status: Active Protocol: Activity Type Activity Date Activity User E-sign Co-sign Detail Recorded Client Recorded Date Recorded By Document 05/04/22 10:34 NV [id number] 05/04/22 10:41 NV Document 05/11/22 10:23 RB [id number] 05/11/22 10:24 RB Document 05/18/22 10:25 RB [id number] 05/18/22 10:26 RB 05/04/22 05/11/22 05/18/22 10:34 10:23 10:25 Wound Care Nurse 3 3. R calf cluster -Primary Dressing Applied C Hydrogel ($) C Hydrogel ($), NonAdherent NonAdherent Contact Layer Contact Layer -Other Dressing hydrogel -Primary Dressing Covered/Secured with Dry Gauze,Dry Dry Gauze & Gauze & Roll Roll Gauze, Gauze,Secured Secured with with Tape Tape 2. RLE lateral -Primary Dressing Applied NonAdherent NonAdherent Contact Layer Contact Layer -Other Dressing hydrogel hydrogel -Primary Dressing Covered/Secured with Dry Gauze,Dry Dry Gauze & Gauze & Roll Roll Gauze, Gauze,Secured Secured with with Tape Tape 1. LLE lateral cluster -Primary Dressing Applied NonAdherent NonAdherent Contact Layer Contact Layer -Other Dressing hydrogel hydrogel -Primary Dressing Covered/Secured with Dry Gauze,Dry Dry Gauze & Gauze & Roll Roll Gauze, Gauze,Secured Secured with with Tape Tape Treatment Response Procedure Procedure Tolerated Well Tolerated Well Pain Scale: 0-10 Numeric Is Patient Pain Free? Yes Yes Yes WC - Visit Discharge Discharge Condition Stable Stable Stable Ambulatory Status Ambulatory Ambulatory Ambulatory Transportation Private Auto Private Auto Private Auto Medication Reconcilliation completed & No No No provided to patient/care provider Clinical Summary of Care Provided Yes Yes Yes Notes: hydrogel and adaptic to all wounds and gauze and tape Additional Wound Wound debrided: right LE lateral Laterality: Right Type of Debridement: Excisional debridement Anesthesia Used: 4% Lidocaine Solution and 5% Lidocaine Gel Depth: Down to and including healthy tissue and in the subcutaneous layer Percentage of wound debrided: 100 Instrument Used: 5mm curette Tissue Removed: Yellow slough, devitalized tissue Severity: Fat Layer Exposed Amount of bleeding with debridement: Mild Bleeding Controlled with: Compression and gauze Patient tolerated procedure: Patient tolerated procedure well Additional Wound Wound debrided: LLE cluster Laterality: Left Type of Debridement: Excisional debridement Anesthesia Used: 4% Lidocaine Solution and 5% Lidocaine Gel Depth: Down to and including healthy tissue and in the subcutaneous layer Percentage of wound debrided: 100 Instrument Used: 5mm curette Tissue Removed: Yellow slough, devitalized tissue Severity: Fat Layer Exposed Amount of bleeding with debridement: Mild Bleeding Controlled with: Compression and gauze Patient tolerated procedure: Patient tolerated procedure well Assessment/Plan Assessment/Plan (1) Open wound of left lower leg due to dog bite: CODE(S): S81.852A - Open bite, left lower leg, initial encounter; W54.0XXA - Bitten by dog, initial encounter (2) Open wound of right lower leg due to dog bite: CODE(S): S81.851A - Open bite, right lower leg, initial encounter; W54.0XXA - Bitten by dog, initial encounter PLAN: Plan Debridement performed today in clinic as annotated above. At home wound-care instructions: Will have her change dressing to collagen hydrogel and Adaptic to wounds and cover with gauze changed daily for light drainage. Secure with tape. Keep dressing clean and dry. Off-loading: The patient was instructed to avoid pressure and friction on the affected areas. Reposition every 2 hours at minimum. Avoid prolonged standing and/or dangling of legs. When seated, feet should be elevated at chest level. Frequent ambulation is encouraged. Diet: Patient encouraged to increase protein intake while taking caution to avoid high carbohydrate and/or sugar intake. Labs/cultures/imaging: Wound culture was negative for infection. Follow-up: Return in 2 weeks for wound care follow up. Return sooner or report to the emergency room should symptoms worsen, or new symptoms arise. Note: [employer] speech recognition instructor of sociology software was used to create portions of this document. Sound-alike and misspelled words, as well as other instructor of sociology errors may be contained in the documentation.
[2022-06-01 09:42] VITALS: BP 166/83; PULSE 92; RESP 16; TEMP 35.7; BMI 32.3
--- NOTE | 2022-06-01 14:30 | PN.PCM_ITS ---
History of Present Illness Date of Service: 06/01/22 Chief Complaint: dog bites to bilateral lower legs History of Wound: Vickie is a pleasant 67 yo woman that presents to the wound healing center upon referral from the ER in [place] for wounds from a dog bite that occurred on 04/08/22. She was attempting to return a puppy that had run off to its quality improvement manager and one of the quality improvement manager's other dogs attacked Vickie and bit her multiple times on the legs. She went to the ER and was treated and started on Amoxicillin/clavulanate 500/125 BID. The wounds were cleaned and skin flap was excised from the right calf wound. She has been dressing the wounds with adaptic and Aquacel for the last several days. The drainage is moderate. She has had some pain. Denies fever or chills. She did receive updated tetanus in ER. She has approx. 3 days left to antibiotic that she received in ER. 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 She is otherwise healthy and not taking any medications. Subjective Subjective She is tolerating wound dressings and has not had any increase in drainage or erythema. Wounds have healed on her left leg and medial right calf. She denies fever, chills, increased erythema or drainage. Objective Data Objective Data Vital Signs: Vital Signs Temp Pulse Resp BP O2 Del Method 96.2 F L 92 16 166/83 H Room Air 06/01/22 09:42 06/01/22 09:42 06/01/22 09:42 06/01/22 09:42 05/04/22 09:32 Oxygen Delivery Method Room Air Weight: 72.575 kg Body Mass Index (BMI) 32.3 Physical Exam Const alert, oriented x3 and no apparent distress General Appearance: cooperative and comfortable HEENT normocephalic and head/scalp atraumatic Resp normal respiratory effort Effort and Inspection: able to speak in complete sentences Cardio regular rate and regular rhythm Skin Wounds: wounds noted Wound Narrative: as in clinical panel Psych mental status grossly normal, thought process normal, cooperative and affect normal Debridement Note Debridement Note Post-Debridement Measurements and Additional Note: Post-Debridement Measurements/Treatment WC - Nurse 1 - General Ulcer Assessment Start: 05/04/22 09:29 Freq: Status: Active Protocol: WC.LOWEXT Activity Type Activity Date Activity User E-sign Co-sign Detail Recorded Client Recorded Date Recorded By Document 05/04/22 09:32 MT [id number] 05/04/22 09:44 MT Document 05/11/22 09:32 DL [id number] 05/11/22 09:40 DL Document 05/18/22 09:48 DL [id number] 05/18/22 09:58 DL Document 06/01/22 09:42 JF [id number] 06/01/22 09:51 JF 05/04/22 05/11/22 05/18/22 09:32 09:32 09:48 WC - Today's Visit Information Type of service Follow-up Visit Follow-up Visit Follow-up Visit (Physician/PRODUCT DEVELOPMENT CHEMIST (Physician/PRODUCT DEVELOPMENT CHEMIST (Physician/PRODUCT DEVELOPMENT CHEMIST ) ) ) Arrival Mode Ambulatory Ambulatory Ambulatory Transfer Assistance None None Patient Identification Verified (Name & Yes Yes Yes ) Patient Requires Transmission-Based No No Precautions Height and Weight Body Mass Index (BMI) 32.3 32.3 32.3 BMI Classification Obese Obese Obese Vital Signs Temperature (97.8 F-99.1 F) 97 F L 98.2 F 97.8 F Temperature Source Temporal Temporal Temporal Pulse Rate (60-100) 76 96 107 H Pulse Location Monitor Monitor Monitor Respiratory Rate (12-18) 18 20 H 18 Respiratory rate source Observation Observation Observation Oxygen Delivery Method Room Air Blood Pressure (90/60-120/80) 168/93 H 151/73 H 151/92 H Blood Pressure Mean (mm Hg) 118 99 111 Source Monitor Monitor Monitor Position Sitting Blood Pressure Location Right Arm History Since Last Visit- (Skip if this is Patient's initial visit) Have you changed medications since your No No last visit? Any new allergies or adverse reactions No No Had a fall/change in ADL's that may No No increase risk of falls Signs or symptoms of abuse and/or No No neglect since last visit Have you been in the hospital since your No No No last visit? Has dressing in place as prescribed Yes Yes Yes Has compression in place as prescribed Yes N/A Has offloadiing in place as prescribed Yes N/A N/A Experienced any changes in pain level or Yes No No management Left Footwear Regular Shoe Right Footwear Regular Shoe Pain Scale: 0-10 Numeric Is Patient Pain Free? Yes Yes Yes 06/01/22 09:42 WC - Today's Visit Information Type of service Follow-up Visit (Physician/PRODUCT DEVELOPMENT CHEMIST ) Arrival Mode Ambulatory Transfer Assistance Patient Identification Verified (Name & No ) Patient Requires Transmission-Based No Precautions Height and Weight Body Mass Index (BMI) 32.3 BMI Classification Obese Vital Signs Temperature (97.8 F-99.1 F) 96.2 F L Temperature Source Temporal Pulse Rate (60-100) 92 Pulse Location Monitor Respiratory Rate (12-18) 16 Respiratory rate source Observation Oxygen Delivery Method Blood Pressure (90/60-120/80) 166/83 H Blood Pressure Mean (mm Hg) 110 Source Monitor Position Semi-Fowlers Blood Pressure Location Left Arm History Since Last Visit- (Skip if this is Patient's initial visit) Have you changed medications since your No last visit? Any new allergies or adverse reactions No Had a fall/change in ADL's that may No increase risk of falls Signs or symptoms of abuse and/or No neglect since last visit Have you been in the hospital since your No last visit? Has dressing in place as prescribed Yes Has compression in place as prescribed N/A Has offloadiing in place as prescribed N/A Experienced any changes in pain level or No management Left Footwear Regular Shoe Right Footwear Regular Shoe Pain Scale: 0-10 Numeric Is Patient Pain Free? Yes - Nurse 1 - General Ulcer Measurement Start: 05/04/22 09:29 Freq: Status: Active Protocol: Activity Type Activity Date Activity User E-sign Co-sign Detail Recorded Client Recorded Date Recorded By Document 05/04/22 09:32 MT [id number] 05/04/22 09:44 MT Document 05/11/22 09:32 DL [id number] 05/11/22 09:40 DL Document 05/18/22 09:48 DL [id number] 05/18/22 09:58 DL Document 06/01/22 09:42 JF [id number] 06/01/22 09:51 JF 12/02/22 12/09/22 12/16/22 09:32 09:32 09:48 Wound Center Nurse 1 1. LLE lateral cluster -Combined with other wound -Current Size (cm) - Length 0.1 3.5 0.2 -Current Size (cm) - Width 0.1 1.5 0.2 -Current Size (cm) - Depth 0.1 0.1 0.1 -Total Square Cm 0.01 5.25 0.04 -Photo Taken No Yes -Epithelialization -Undermining/Tunneling -Circular Undermining -Exudate Amt Small Small -Exudate Type Serosanguineous Serosanguineous -Wound Margin Distinct, Distinct, Outline Outline Attached Attached -Granulation Amt None Present (0 Small (1-33%) %) -Granulation Quality [place] -Slough/Fibrin -Necrosis Amt Large (67-100%) Small (1-33%) -Necrotic Tissue Type Adherent Slough Eschar -Structure Exposed N/A N/A -Texture (Karolina-wound Skin Appearance) Scarring Scarring -Moisture (Karolina-wound Skin Appearance) No Abnormality No Abnormality -Color (Karolina-wound Skin Appearance) Erythema Assessed -Temperature (Karolina-wound Skin No Abnormality No Abnormality Appearance) (Pt Warm) (Pt Warm) -Tenderness on Palpation (Karolina-wound Skin Appearance) -Ulcer Cleansing Rinsed/ Soap and Water Irrigated with Saline -Foul Odor after Cleansing No -Anesthetic Used 5% Lidocaine 4% Lidocaine Gel Solution 3. R calf cluster -Combined with other wound -Current Size (cm) - Length 5 0.3 0.1 -Current Size (cm) - Width 1.9 0.6 0.1 -Current Size (cm) - Depth 0.1 0.1 0.1 -Total Square Cm 9.5 0.18 0.01 -Photo Taken No Yes -Epithelialization -Tunneling -Undermining/Tunneling -Circular Undermining -Exudate Amt Medium None Present None Present -Exudate Type Serosanguineous -Wound Margin Flat & Intact Distinct, Distinct, Outline Outline Attached Attached -Granulation Amt Large (67-100%) None Present (0 %) -Granulation Quality Pale,[place] Hyper- granulation, [place] -Necrosis Amt Small (1-33%) Small (1-33%) Small (1-33%) -Necrotic Tissue Type Adherent Slough Adherent Slough Adherent Slough -Structure Exposed N/A N/A -Texture (Karolina-wound Skin Appearance) Assessed Scarring Scarring -Moisture (Karolina-wound Skin Appearance) Assessed No Abnormality No Abnormality -Color (Karolina-wound Skin Appearance) Assessed Erythema Assessed -Temperature (Karolina-wound Skin No Abnormality No Abnormality No Abnormality Appearance) (Pt Warm) (Pt Warm) (Pt Warm) -Tenderness on Palpation (Karolina-wound No No Skin Appearance) -Ulcer Cleansing Soap and Water Wound Cleanser Soap and Water -Foul Odor after Cleansing No No -Anesthetic Used 4% Lidocaine 5% Lidocaine 4% Lidocaine Solution Gel Solution 2. RLE lateral -Combined with other wound -Current Size (cm) - Length 0.1 5.2 4 -Current Size (cm) - Width 0.1 1.8 1.5 -Current Size (cm) - Depth 0.1 0.2 0.2 -Total Square Cm 0.01 9.36 6.0 -Photo Taken No Yes -Epithelialization -Tunneling -Undermining/Tunneling -Circular Undermining -Exudate Amt None Present Small Medium -Exudate Type Serosanguineous Yellow/Green -Wound Margin Flat & Intact Distinct, Distinct, Outline Outline Attached Attached -Granulation Amt Large (67-100%) Medium (34-66%) Medium (34-66%) -Granulation Quality Pale,[place],Red Red Red -Slough/Fibrin -Necrosis Amt Medium (34-66%) Medium (34-66%) -Necrotic Tissue Type Adherent Slough Adherent Slough -Structure Exposed N/A -Texture (Karolina-wound Skin Appearance) Assessed Scarring Scarring -Moisture (Karolina-wound Skin Appearance) Assessed No Abnormality No Abnormality -Color (Karolina-wound Skin Appearance) Assessed Erythema Erythema -Temperature (Karolina-wound Skin No Abnormality No Abnormality No Abnormality Appearance) (Pt Warm) (Pt Warm) (Pt Warm) -Tenderness on Palpation (Karolina-wound No No Skin Appearance) -Ulcer Cleansing Soap and Water Rinsed/ Soap and Water Irrigated with Saline -Foul Odor after Cleansing No No No -Anesthetic Used 4% Lidocaine 5% Lidocaine 4% Lidocaine Solution Gel Solution Lower Limb Edema Present NA 06/01/22 09:42 Wound Center Nurse 1 1. LLE lateral cluster -Combined with other wound No -Current Size (cm) - Length 0 -Current Size (cm) - Width 0 -Current Size (cm) - Depth 0 -Total Square Cm 0 -Photo Taken No -Epithelialization Large 67-100% -Undermining/Tunneling No -Circular Undermining No -Exudate Amt -Exudate Type -Wound Margin -Granulation Amt None Present (0 %) -Granulation Quality -Slough/Fibrin No -Necrosis Amt -Necrotic Tissue Type -Structure Exposed N/A -Texture (Karolina-wound Skin Appearance) Assessed -Moisture (Karolina-wound Skin Appearance) Assessed,Dry/ Scaly -Color (Karolina-wound Skin Appearance) Assessed -Temperature (Karolina-wound Skin No Abnormality Appearance) (Pt Warm) -Tenderness on Palpation (Karolina-wound No Skin Appearance) -Ulcer Cleansing Rinsed/ Irrigated with Saline -Foul Odor after Cleansing No -Anesthetic Used 3. R calf cluster -Combined with other wound No -Current Size (cm) - Length 0 -Current Size (cm) - Width 0 -Current Size (cm) - Depth 0 -Total Square Cm 0 -Photo Taken No -Epithelialization Large 67-100% -Tunneling No -Undermining/Tunneling No -Circular Undermining No -Exudate Amt -Exudate Type -Wound Margin -Granulation Amt -Granulation Quality -Necrosis Amt -Necrotic Tissue Type -Structure Exposed -Texture (Karolina-wound Skin Appearance) -Moisture (Karolina-wound Skin Appearance) -Color (Karolina-wound Skin Appearance) -Temperature (Karolina-wound Skin Appearance) -Tenderness on Palpation (Karolina-wound Skin Appearance) -Ulcer Cleansing -Foul Odor after Cleansing -Anesthetic Used 2. RLE lateral -Combined with other wound No -Current Size (cm) - Length 2.5 -Current Size (cm) - Width 1.0 -Current Size (cm) - Depth 0.1 -Total Square Cm 2.50 -Photo Taken No -Epithelialization Small 1-33% -Tunneling No -Undermining/Tunneling No -Circular Undermining No -Exudate Amt Small -Exudate Type Serosanguineous -Wound Margin Flat & Intact -Granulation Amt Medium (34-66%) -Granulation Quality Red -Slough/Fibrin Yes -Necrosis Amt Small (1-33%) -Necrotic Tissue Type Adherent Slough -Structure Exposed N/A -Texture (Karolina-wound Skin Appearance) Assessed -Moisture (Karolina-wound Skin Appearance) Assessed,Dry/ Scaly -Color (Karolina-wound Skin Appearance) Assessed -Temperature (Karolina-wound Skin No Abnormality Appearance) (Pt Warm) -Tenderness on Palpation (Karolina-wound No Skin Appearance) -Ulcer Cleansing Rinsed/ Irrigated with Saline -Foul Odor after Cleansing No -Anesthetic Used 5% Lidocaine Gel Lower Limb Edema Present No WC - Nurse 2 - General Ulcer CM Notes Start: 05/04/22 09:29 Freq: Status: Active Protocol: Activity Type Activity Date Activity User E-sign Co-sign Detail Recorded Client Recorded Date Recorded By Document 05/04/22 09:59 MW [id number] 05/04/22 10:17 MW Document 05/11/22 09:47 MW [id number] 05/11/22 10:05 MW Document 05/18/22 10:02 MW [id number] 05/18/22 10:20 MW Document 06/01/22 10:18 JF [id number] 06/01/22 10:25 JF 05/04/22 05/11/22 05/18/22 09:59 09:47 10:02 Wound Center Nurse 2 1. LLE lateral cluster -Time 10:02 09:52 10:03 -Correct Patient Yes Yes Yes -Correct Side, Site, Position Yes Yes Yes -Correct Procedure Yes Yes Yes -Procedure Performed Yes Yes Yes -Type of Procedure Debridement Debridement Debridement -Clinical Debridement Subcutaneous Subcutaneous Subcutaneous -Tissue Removed Subcutaneous Subcutaneous Subcutaneous -Post Debridement (cm) - Length 3.8 0.9 0.4 -Post Debridement (cm) - Width 0.9 0.7 0.4 -Post Debridement (cm) - Depth 0.1 0.2 0.2 -Total Square (Post) (cm) 3.42 0.63 0.16 -Area of Debridement (cm) - Length 3.8 0.9 0.4 -Area of Debridement (cm) - Width 0.9 0.7 0.4 -Total Square (Area) (cm) 3.42 0.63 0.16 -Tunneling No No No -Undermining/Tunneling No No No -Circular Undermining No No No -Wound/Ulcer Outcome Not Healed Not Healed Not Healed -Ulcer Cleansing Rinsed/ Rinsed/ Rinsed/ Irrigated with Irrigated with Irrigated with Saline Saline Saline -Foul Odor after Cleansing No No No -Bioengineered Tissue No No No -Bleeding Controlled with Pressure Pressure Pressure -Treatment Response Procedure Procedure Procedure Tolerated Well Tolerated Well Tolerated Well -Offloading No No No -Debridement - Subq, 1st 20sq cm No No No 3. R calf cluster -Time 09:59 09:51 10:02 -Correct Patient Yes Yes Yes -Correct Side, Site, Position Yes Yes Yes -Correct Procedure Yes Yes Yes -Procedure Performed Yes Yes Yes -Type of Procedure Debridement Debridement Debridement -Clinical Debridement Subcutaneous Subcutaneous Subcutaneous -Tissue Removed Subcutaneous Subcutaneous Subcutaneous -Post Debridement (cm) - Length 0.5 0.4 0.3 -Post Debridement (cm) - Width 0.4 0.2 0.2 -Post Debridement (cm) - Depth 0.2 0.1 0.1 -Total Square (Post) (cm) 0.20 0.08 0.06 -Area of Debridement (cm) - Length 0.5 0.4 0.3 -Area of Debridement (cm) - Width 0.4 0.2 0.2 -Total Square (Area) (cm) 0.20 0.08 0.06 -Tunneling No No No -Undermining/Tunneling No No No -Circular Undermining No No No -Wound/Ulcer Outcome Not Healed Not Healed Not Healed -Ulcer Cleansing Rinsed/ Rinsed/ Rinsed/ Irrigated with Irrigated with Irrigated with Saline Saline Saline -Foul Odor after Cleansing No No No -Bioengineered Tissue No No No -Bleeding Controlled with Pressure Pressure Pressure -Treatment Response Procedure Procedure Procedure Tolerated Well Tolerated Well Tolerated Well -Offloading No No No -Debridement - Subq, 1st 20sq cm Yes Yes Yes 2. RLE lateral -Time 10: 09:51 10:03 -Correct Patient Yes Yes Yes -Correct Side, Site, Position Yes Yes Yes -Correct Procedure Yes Yes Yes -Procedure Performed Yes Yes Yes -Type of Procedure Debridement Debridement Debridement -Clinical Debridement Subcutaneous Subcutaneous Subcutaneous -Tissue Removed Subcutaneous Subcutaneous Subcutaneous -Post Debridement (cm) - Length 5.4 5.2 5.0 -Post Debridement (cm) - Width 1.7 1.8 1.3 -Post Debridement (cm) - Depth 0.2 0.1 0.1 -Total Square (Post) (cm) 9.18 9.36 6.50 -Area of Debridement (cm) - Length 5.4 5.2 5.0 -Area of Debridement (cm) - Width 1.7 1.8 1.3 -Total Square (Area) (cm) 9.18 9.36 6.50 -Tunneling No No No -Undermining/Tunneling No No No -Circular Undermining No No No -Wound/Ulcer Outcome Not Healed Not Healed Not Healed -Ulcer Cleansing Rinsed/ Rinsed/ Rinsed/ Irrigated with Irrigated with Irrigated with Saline Saline Saline -Foul Odor after Cleansing No No No -Bioengineered Tissue No No No -Bleeding Controlled with Pressure Pressure Pressure -Treatment Response Procedure Procedure Procedure Tolerated Well Tolerated Well Tolerated Well -Offloading No No No -Debridement - Subq, 1st 20sq cm No No No Pain Scale: 0-10 Numeric Is Patient Pain Free? Yes Yes Yes 06/01/22 10:18 Wound Center Nurse 2 1. LLE lateral cluster -Time -Correct Patient No -Correct Side, Site, Position No -Correct Procedure No -Procedure Performed No -Type of Procedure -Clinical Debridement -Tissue Removed -Post Debridement (cm) - Length 0 -Post Debridement (cm) - Width 0 -Post Debridement (cm) - Depth 0 -Total Square (Post) (cm) 0 -Area of Debridement (cm) - Length 0 -Area of Debridement (cm) - Width 0 -Total Square (Area) (cm) 0 -Tunneling -Undermining/Tunneling -Circular Undermining -Wound/Ulcer Outcome Healed- Epithelialized -Ulcer Cleansing -Foul Odor after Cleansing -Bioengineered Tissue -Bleeding Controlled with -Treatment Response -Offloading -Debridement - Subq, 20sq cm 3. R calf cluster -Time -Correct Patient No -Correct Side, Site, Position No -Correct Procedure No -Procedure Performed No -Type of Procedure -Clinical Debridement -Tissue Removed -Post Debridement (cm) - Length -Post Debridement (cm) - Width -Post Debridement (cm) - Depth -Total Square (Post) (cm) -Area of Debridement (cm) - Length -Area of Debridement (cm) - Width -Total Square (Area) (cm) -Tunneling -Undermining/Tunneling -Circular Undermining -Wound/Ulcer Outcome Healed- Epithelialized -Ulcer Cleansing -Foul Odor after Cleansing -Bioengineered Tissue -Bleeding Controlled with -Treatment Response -Offloading -Debridement - Subq, 1st 20sq cm 2. RLE lateral -Time 10:18 -Correct Patient Yes -Correct Side, Site, Position Yes -Correct Procedure Yes -Procedure Performed Yes -Type of Procedure Debridement -Clinical Debridement Subcutaneous -Tissue Removed Subcutaneous -Post Debridement (cm) - Length 2.9 -Post Debridement (cm) - Width 0.6 -Post Debridement (cm) - Depth 0.1 -Total Square (Post) (cm) 1.74 -Area of Debridement (cm) - Length 2.9 -Area of Debridement (cm) - Width 0.6 -Total Square (Area) (cm) 1.74 -Tunneling No -Undermining/Tunneling No -Circular Undermining No -Wound/Ulcer Outcome Not Healed -Ulcer Cleansing Rinsed/ Irrigated with Saline -Foul Odor after Cleansing No -Bioengineered Tissue No -Bleeding Controlled with Pressure -Treatment Response Procedure Tolerated Well -Offloading No -Debridement - Subq, 1st 20sq cm Yes Pain Scale: 0-10 Numeric Is Patient Pain Free? Yes WC - Nurse 3 - General Ulcer D/C NN Start: 05/04/22 09:29 Freq: Status: Active Protocol: Activity Type Activity Date Activity User E-sign Co-sign Detail Recorded Client Recorded Date Recorded By Document 05/04/22 10:34 NE [id number] 05/04/22 10:41 MT Document 05/11/22 10:23 RB [id number] 05/11/22 10:24 RB Document 05/18/22 10:25 RB [id number] 05/18/22 10:26 RB Document 06/01/22 10:31 ML [id number] 06/01/22 10:33 ML 05/04/22 05/11/22 05/18/22 10:34 10:23 10:25 Wound Care Nurse 3 1. LLE lateral cluster -Primary Dressing Applied NonAdherent NonAdherent Contact Layer Contact Layer -Other Dressing hydrogel hydrogel -Primary Dressing Covered/Secured with Dry Gauze,Dry Dry Gauze & Gauze & Roll Roll Gauze, Gauze,Secured Secured with with Tape Tape 3. R calf cluster -Primary Dressing Applied C Hydrogel ($) C Hydrogel ($), NonAdherent NonAdherent Contact Layer Contact Layer -Other Dressing hydrogel -Primary Dressing Covered/Secured with Dry Gauze,Dry Dry Gauze & Gauze & Roll Roll Gauze, Gauze,Secured Secured with with Tape Tape 2. RLE lateral -Ulcer Cleansing -Primary Dressing Applied NonAdherent NonAdherent Contact Layer Contact Layer -Other Dressing hydrogel hydrogel -Primary Dressing Covered/Secured with Dry Gauze,Dry Dry Gauze & Gauze & Roll Roll Gauze, Gauze,Secured Secured with with Tape Tape Treatment Response Procedure Procedure Tolerated Well Tolerated Well Pain Scale: 0-10 Numeric Is Patient Pain Free? Yes Yes Yes WC - Visit Discharge Discharge Condition Stable Stable Stable Ambulatory Status Ambulatory Ambulatory Ambulatory Transportation Private Auto Private Auto Private Auto Medication Reconcilliation completed & No No No provided to patient/care provider Clinical Summary of Care Provided Yes Yes Yes Notes: hydrogel and adaptic to all wounds and gauze and tape 06/01/22 10:31 Wound Care Nurse 3 1. LLE lateral cluster -Primary Dressing Applied -Other Dressing -Primary Dressing Covered/Secured with 3. R calf cluster -Primary Dressing Applied -Other Dressing -Primary Dressing Covered/Secured with 2. RLE lateral -Ulcer Cleansing Rinsed/ Irrigated with Saline -Primary Dressing Applied -Other Dressing hydrogel/ adaptic -Primary Dressing Covered/Secured with Dry Gauze & Roll Gauze, Secured with Tape Treatment Response Pain Scale: 0-10 Numeric Is Patient Pain Free? Yes WC - Visit Discharge Discharge Condition Ambulatory Status Transportation Medication Reconcilliation completed & provided to patient/care provider Clinical Summary of Care Provided Notes: Additional Wound Wound debrided: right LE lateral Laterality: Right Type of Debridement: Excisional debridement Anesthesia Used: 4% Lidocaine Solution and 5% Lidocaine Gel Depth: Down to and including healthy tissue and in the subcutaneous layer Percentage of wound debrided: 100 Instrument Used: 5mm curette Tissue Removed: Yellow slough, devitalized tissue Severity: Fat Layer Exposed Amount of bleeding with debridement: Mild Bleeding Controlled with: Compression and gauze Patient tolerated procedure: Patient tolerated procedure well Assessment/Plan Assessment/Plan (1) Open wound of left lower leg due to dog bite: CODE(S): S81.852A - Open bite, left lower leg, initial encounter; W54.0XXA - Bitten by dog, initial encounter (2) Open wound of right lower leg due to dog bite: CODE(S): S81.851A - Open bite, right lower leg, initial encounter; W54.0XXA - Bitten by dog, initial encounter PLAN: Plan Debridement performed today in clinic as annotated above. At home wound-care instructions: Will have her continue dressing with collagen hydrogel and Adaptic to wounds and cover with gauze changed daily for light drainage. Secure with tape. Keep dressing clean and dry. Off-loading: The patient was instructed to avoid pressure and friction on the affected areas. Reposition every 2 hours at minimum. Avoid prolonged standing and/or dangling of legs. When seated, feet should be elevated at chest level. Frequent ambulation is encouraged. Diet: Patient encouraged to increase protein intake while taking caution to avoid high carbohydrate and/or sugar intake. Labs/cultures/imaging: Wound culture was negative for infection. Follow-up: Return in 2 weeks for wound care follow up. Return sooner or report to the emergency room should symptoms worsen, or new symptoms arise. Note: [employer] speech recognition beauty sales advisor software was used to create portions of this document. Sound-alike and misspelled words, as well as other beauty sales advisor errors may be contained in the documentation.
== END 2022-06-02 23:59 | disposition home or self-care (01) ==
LOC: WC 09:30
PROVIDERS: PCP Family Medicine; Visit Provider Family Medicine
DX: S81.852A Open bite, left lower leg, initial encounter (principal); M25.552 Pain in left hip; W54.0XXA Bitten by dog, initial encounter; M25.551 Pain in right hip; S81.851A Open bite, right lower leg, initial encounter; M79.661 Pain in right lower leg
CPT/HCPCS: 11042; 93971

== ENCOUNTER 2022-06-29 09:30 | Outpatient (RCR) | payer MEDICARE, SELFPAY ==
[2022-06-03 00:31] VITALS: BP 166/83; PULSE 92; RESP 16; TEMP 35.7; BMI 32.3
[2022-06-15 10:27] VITALS: BP 152/72; PULSE 95; TEMP 36.1; BMI 32.3
--- NOTE | 2022-06-15 14:05 | PN.PCM_ITS ---
History of Present Illness Date of Service: 06/15/22 Chief Complaint: dog bites to bilateral lower legs History of Wound: Vickie is a pleasant 67 yo woman that presents to the wound healing center upon referral from the ER in [place] for wounds from a dog bite that occurred on 04/08/22. She was attempting to return a puppy that had run off to its customer service specialist and one of the customer service specialist's other dogs attacked Vickie and bit her multiple times on the legs. She went to the ER and was treated and started on Amoxicillin/clavulanate 500/125 BID. The wounds were cleaned and skin flap was excised from the right calf wound. She has been dressing the wounds with adaptic and Aquacel for the last several days. The drainage is moderate. She has had some pain. Denies fever or chills. She did receive updated tetanus in ER. She has approx. 3 days left to antibiotic that she received in ER. 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 She is otherwise healthy and not taking any medications. Subjective Subjective She is tolerating wound dressings and has not had any increase in drainage or erythema. Wound is improving. She denies fever, chills, increased erythema or drainage. Objective Data Objective Data Vital Signs: Vital Signs Temp Pulse Resp BP 96.9 F L 95 16 152/72 H 06/15/22 10:27 06/15/22 10:27 06/03/22 00:31 06/15/22 10:27 Weight: 72.575 kg Body Mass Index (BMI) 32.3 Physical Exam Const alert, oriented x3 and no apparent distress General Appearance: cooperative and comfortable HEENT normocephalic and head/scalp atraumatic Resp normal respiratory effort Effort and Inspection: able to speak in complete sentences Cardio regular rate and regular rhythm Skin Wounds: wounds noted Wound Narrative: as in clinical panel Psych mental status grossly normal, thought process normal, cooperative and affect normal Debridement Note Debridement Note Post-Debridement Measurements and Additional Note: Post-Debridement Measurements/Treatment HI - Nurse 1 - General Ulcer Assessment Start: 06/15/22 09:52 Freq: Status: Active Protocol: FARHAN Activity Type Activity Date Activity User E-sign Co-sign Detail Recorded Client Recorded Date Recorded By Document 06/15/22 10:27 AK [id number] 06/15/22 10:29 [place] 06/15/22 10:27 WC - Today's Visit Information Type of service Follow-up Visit (Physician/HIGHWAY MAINTENANCE SUPERVISOR ) Arrival Mode Ambulatory Patient Identification Verified (Name & Yes ) Patient Requires Transmission-Based No Precautions Height and Weight Body Mass Index (BMI) 32.3 BMI Classification Obese Vital Signs Temperature (97.8 F-99.1 F) 96.9 F L Temperature Source Temporal Pulse Rate (60-100) 95 Blood Pressure (90/60-120/80) 152/72 H Blood Pressure Mean (mm Hg) 98 Source Monitor History Since Last Visit- (Skip if this is Patient's initial visit) Have you changed medications since your No last visit? Any new allergies or adverse reactions No Had a fall/change in ADL's that may No increase risk of falls Signs or symptoms of abuse and/or No neglect since last visit Have you been in the hospital since your No last visit? Has dressing in place as prescribed Yes Has compression in place as prescribed N/A Has offloadiing in place as prescribed N/A Experienced any changes in pain level or No management Left Footwear Regular Shoe Right Footwear Regular Shoe Pain Scale: 0-10 Numeric Is Patient Pain Free? Yes - Nurse 1 - General Ulcer Measurement Start: 06/15/22 09:52 Freq: Status: Active Protocol: Activity Type Activity Date Activity User E-sign Co-sign Detail Recorded Client Recorded Date Recorded By Document 06/15/22 10:27 AK [id number] 06/15/22 10:29 [place] 06/15/22 10:27 Wound Center Nurse 1 2. RLE lateral -Combined with other wound No -Current Size (cm) - Length 1.8 -Current Size (cm) - Width 0.5 -Current Size (cm) - Depth 0.1 -Total Square Cm 0.90 -Photo Taken Yes -Tunneling No -Undermining/Tunneling No -Circular Undermining No -Change in Wound Grade/Stage No -Exudate Amt Medium -Exudate Type Serosanguineous -Wound Margin Distinct, Outline Attached -Granulation Amt Medium (34-66%) -Granulation Quality [place] -Necrosis Amt Medium (34-66%) -Necrotic Tissue Type Adherent Slough -Structure Exposed N/A -Texture (Karolina-wound Skin Appearance) Assessed, Scarring -Moisture (Karolina-wound Skin Appearance) No Abnormality, Assessed -Color (Karolina-wound Skin Appearance) No Abnormality, Assessed -Temperature (Karolina-wound Skin No Abnormality Appearance) (Pt Warm) -Tenderness on Palpation (Karolina-wound No Skin Appearance) -Ulcer Cleansing Rinsed/ Irrigated with Saline -Foul Odor after Cleansing No -Anesthetic Used 5% Lidocaine Gel WC - Nurse 2 - General Ulcer CM Notes Start: 06/15/22 09:52 Freq: Status: Active Protocol: Activity Type Activity Date Activity User E-sign Co-sign Detail Recorded Client Recorded Date Recorded By Document 06/15/22 09:52 MW [id number] 06/15/22 09:56 MW 06/15/22 09:52 Wound Center Nurse 2 3. R calf cluster -Time 09:54 2. RLE lateral -Time 09:54 -Correct Patient Yes -Correct Side, Site, Position Yes -Correct Procedure Yes -Procedure Performed Yes -Type of Procedure Debridement -Clinical Debridement Subcutaneous -Tissue Removed Subcutaneous -Post Debridement (cm) - Length 1.2 -Post Debridement (cm) - Width 0.3 -Post Debridement (cm) - Depth 0.1 -Total Square (Post) (cm) 0.36 -Area of Debridement (cm) - Length 1.2 -Area of Debridement (cm) - Width 0.3 -Total Square (Area) (cm) 0.36 -Tunneling No -Undermining/Tunneling No -Circular Undermining No -Wound/Ulcer Outcome Not Healed -Ulcer Cleansing Rinsed/ Irrigated with Saline -Foul Odor after Cleansing No -Bioengineered Tissue No -Bleeding Controlled with Pressure -Treatment Response Procedure Tolerated Well -Offloading No -Debridement - Subq, 1st 20sq cm Yes Pain Scale: 0-10 Numeric Is Patient Pain Free? Yes HI - Nurse 3 - General Ulcer D/C NN Start: 06/15/22 09:52 Freq: Status: Active Protocol: Activity Type Activity Date Activity User E-sign Co-sign Detail Recorded Client Recorded Date Recorded By Document 06/15/22 09:57 MW [id number] 06/15/22 09:58 MW 06/15/22 09:57 Wound Care Nurse 3 2. RLE lateral -Ulcer Cleansing Rinsed/ Irrigated with Saline -Foul Odor after Cleansing No -Negative Pressure Wound Therapy N/A -Primary Dressing Applied NonAdherent Contact Layer -Other Dressing c.hydrogel -Primary Dressing Covered/Secured with Dry Gauze & Roll Gauze, Secured with Tape Treatment Response Procedure Tolerated Well Pain Scale: 0-10 Numeric Is Patient Pain Free? Yes Teaching: Wound Center Dressing Your Wound -Person Taught Patient -Teaching Method Discussion, Demonstration -Response to teaching Verbalize understanding WC - Visit Discharge Discharge Condition Stable Ambulatory Status Ambulatory Transportation Private Auto Accompanied by self Medication Reconcilliation completed & No provided to patient/care provider Clinical Summary of Care Provided Yes Additional Wound Wound debrided: right LE lateral Laterality: Right Type of Debridement: Excisional debridement Anesthesia Used: 4% Lidocaine Solution and 5% Lidocaine Gel Depth: Down to and including healthy tissue and in the subcutaneous layer Percentage of wound debrided: 100 Instrument Used: 5mm curette Tissue Removed: Yellow slough, devitalized tissue Severity: Fat Layer Exposed Amount of bleeding with debridement: Mild Bleeding Controlled with: Compression and gauze Patient tolerated procedure: Patient tolerated procedure well Assessment/Plan Assessment/Plan (1) Open wound of right lower leg due to dog bite: CODE(S): S81.851A - Open bite, right lower leg, initial encounter; W54.0XXA - Bitten by dog, initial encounter PLAN: Plan Debridement performed today in clinic as annotated above. At home wound-care instructions: Will have her continue dressing with collagen hydrogel and Adaptic to wound and cover with gauze changed daily for light drainage. Secure with tape. Keep dressing clean and dry. Off-loading: The patient was instructed to avoid pressure and friction on the affected areas. Reposition every 2 hours at minimum. Avoid prolonged standing and/or dangling of legs. When seated, feet should be elevated at chest level. Frequent ambulation is encouraged. Diet: Patient encouraged to increase protein intake while taking caution to avoid high carbohydrate and/or sugar intake. Labs/cultures/imaging: Wound culture was negative for infection. Follow-up: Return in 2 weeks for wound care follow up. Return sooner or report to the emergency room should symptoms worsen, or new symptoms arise. Note: [employer] speech recognition military technology manager software was used to create portions of this document. Sound-alike and misspelled words, as well as other military technology manager errors may be contained in the documentation.
[2022-06-29 09:26] VITALS: BP 177/83; PULSE 84; RESP 16; TEMP 35.5; BMI 32.3
--- NOTE | 2022-06-29 10:11 | PCM.WC.PN ---
History of Present Illness Date of Service: 06/29/22 Chief Complaint: dog bites to bilateral lower legs History of Wound: Vickie is a pleasant 67 yo woman that presents to the wound healing center upon referral from the ER in [place] for wounds from a dog bite that occurred on 04/08/22. She was attempting to return a puppy that had run off to its botany laboratory assistant and one of the botany laboratory assistant's other dogs attacked Vickie and bit her multiple times on the legs. She went to the ER and was treated and started on Amoxicillin/clavulanate 500/125 BID. The wounds were cleaned and skin flap was excised from the right calf wound. She has been dressing the wounds with adaptic and Aquacel for the last several days. The drainage is moderate. She has had some pain. Denies fever or chills. She did receive updated tetanus in ER. She has approx. 3 days left to antibiotic that she received in ER. 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 She is otherwise healthy and not taking any medications. Subjective Subjective Vickie's wound is healed. She no longer has any pain or drainage. Objective Data Objective Data Vital Signs: Vital Signs Temp Pulse Resp BP O2 Del Method 96 F L 84 16 177/83 H Room Air 06/29/22 09:26 06/29/22 09:26 06/29/22 09:26 06/29/22 09:26 06/29/22 09:26 Oxygen Delivery Method Room Air Weight: 72.575 kg Body Mass Index (BMI) 32.3 Physical Exam Const alert, oriented x3 and no apparent distress General Appearance: cooperative and comfortable HEENT normocephalic and head/scalp atraumatic Resp normal respiratory effort Effort and Inspection: able to speak in complete sentences Cardio regular rate and regular rhythm Skin Wounds: wounds noted Wound Narrative: as in clinical panel Psych mental status grossly normal, thought process normal, cooperative and affect normal Debridement Note Debridement Note Wound debrided: right LE lateral Laterality: Right No debridement was completed: No debridement was completed today (wound is healed) Post-Debridement Measurements and Additional Note: Post-Debridement Measurements/Treatment WC - Nurse 1 - General Ulcer Assessment Start: 06/15/22 09:52 Freq: Status: Active Protocol: FARHAN Activity Type Activity Date Activity User E-sign Co-sign Detail Recorded Client Recorded Date Recorded By Document 06/15/22 10:27 NIALL [id number] 06/15/22 10:29 AK Document 06/29/22 09:26 [facility] [id number] 06/29/22 09:30 BM 06/15/22 06/29/22 10:27 09:26 - Today's Visit Information Type of service Follow-up Visit Follow-up Visit (Physician/ADULT EDUCATION MANAGER (Physician/ADULT EDUCATION MANAGER ) ) Arrival Mode Ambulatory Ambulatory Transfer Assistance None Patient Identification Verified (Name & Yes Yes ) Patient Requires Transmission-Based No No Precautions Height and Weight Body Mass Index (BMI) 32.3 32.3 BMI Classification Obese Obese Vital Signs Temperature (97.8 F-99.1 F) 96.9 F L 96 F L Temperature Source Temporal Temporal Pulse Rate (60-100) 95 84 Pulse Location Monitor Respiratory Rate (12-18) 16 Respiratory rate source Observation Oxygen Delivery Method Room Air Blood Pressure (90/60-120/80) 152/72 H 177/83 H Blood Pressure Mean (mm Hg) 98 114 Source Monitor Monitor Position Sitting Blood Pressure Location Left Arm History Since Last Visit- (Skip if this is Patient's initial visit) Have you changed medications since your No No last visit? Any new allergies or adverse reactions No No Had a fall/change in ADL's that may No No increase risk of falls Signs or symptoms of abuse and/or No No neglect since last visit Have you been in the hospital since your No No last visit? Has dressing in place as prescribed Yes Yes Has compression in place as prescribed N/A N/A Has offloadiing in place as prescribed N/A N/A Experienced any changes in pain level or No No management Left Footwear Regular Shoe Regular Shoe Right Footwear Regular Shoe Regular Shoe Pain Scale: 0-10 Numeric Is Patient Pain Free? Yes Yes - Nurse 1 - General Ulcer Measurement Start: 06/15/22 09:52 Freq: Status: Active Protocol: Activity Type Activity Date Activity User E-sign Co-sign Detail Recorded Client Recorded Date Recorded By Document 06/15/22 10:27 NIALL [id number] 06/15/22 10:29 AK Document 06/29/22 09:26 BMF [id number] 06/29/22 09:30 [facility] 06/15/22 06/29/22 10:27 09:26 Wound Center Nurse 1 2. RLE lateral -Combined with other wound No No -Current Size (cm) - Length 1.8 2 -Current Size (cm) - Width 0.5 0.2 -Current Size (cm) - Depth 0.1 0.1 -Total Square Cm 0.90 0.4 -Date of Last Picture (Recall this 06/29/22 field) -Photo Taken Yes Yes -Epithelialization Large 67-100% -Tunneling No No -Undermining/Tunneling No No -Circular Undermining No No -Change in Wound Grade/Stage No -Exudate Amt Medium None Present -Exudate Type Serosanguineous -Wound Margin Distinct, Outline Attached -Granulation Amt Medium (34-66%) -Granulation Quality [employer] -Necrosis Amt Medium (34-66%) -Necrotic Tissue Type Adherent Slough -Structure Exposed N/A -Texture (Karolina-wound Skin Appearance) Assessed, Assessed, Scarring Scarring -Moisture (Karolina-wound Skin Appearance) No Abnormality, Assessed Assessed -Color (Karolina-wound Skin Appearance) No Abnormality, Assessed Assessed -Temperature (Karolina-wound Skin No Abnormality No Abnormality Appearance) (Pt Warm) (Pt Warm) -Tenderness on Palpation (Karolina-wound No No Skin Appearance) -Ulcer Cleansing Rinsed/ Rinsed/ Irrigated with Irrigated with Saline Saline -Foul Odor after Cleansing No No -Anesthetic Used 5% Lidocaine 5% Lidocaine Gel Gel WC - Nurse 2 - General Ulcer CM Notes Start: 06/15/22 09:52 Freq: Status: Active Protocol: Activity Type Activity Date Activity User E-sign Co-sign Detail Recorded Client Recorded Date Recorded By Document 06/15/22 09:52 MW [id number] 06/15/22 09:56 MW Document 06/29/22 09:47 MW [id number] 06/29/22 09:48 MW 06/15/22 06/29/22 09:52 09:47 Wound Center Nurse 2 3. R calf cluster -Time 09:54 2. RLE lateral -Time 09:54 09:47 -Correct Patient Yes Yes -Correct Side, Site, Position Yes Yes -Correct Procedure Yes Yes -Procedure Performed Yes No -Type of Procedure Debridement -Clinical Debridement Subcutaneous -Tissue Removed Subcutaneous -Post Debridement (cm) - Length 1.2 0 -Post Debridement (cm) - Width 0.3 0 -Post Debridement (cm) - Depth 0.1 0 -Total Square (Post) (cm) 0.36 0 -Area of Debridement (cm) - Length 1.2 -Area of Debridement (cm) - Width 0.3 -Total Square (Area) (cm) 0.36 -Tunneling No -Undermining/Tunneling No -Circular Undermining No -Wound/Ulcer Outcome Not Healed Healed- Epithelialized -Ulcer Cleansing Rinsed/ Irrigated with Saline -Foul Odor after Cleansing No -Bioengineered Tissue No -Bleeding Controlled with Pressure -Treatment Response Procedure Tolerated Well -Offloading No -Debridement - Subq, 1st 20sq cm Yes Pain Scale: 0-10 Numeric Is Patient Pain Free? Yes Yes - Nurse 3 - General Ulcer D/C NN Start: 06/15/22 09:52 Freq: Status: Active Protocol: Activity Type Activity Date Activity User E-sign Co-sign Detail Recorded Client Recorded Date Recorded By Document 06/15/22 09:57 MW [id number] 06/15/22 09:58 MW Document 06/29/22 09:52 RB [id number] 06/29/22 09:54 RB 06/15/22 06/29/22 09:57 09:52 Wound Care Center Nurse 3 2. RLE lateral -Ulcer Cleansing Rinsed/ Irrigated with Saline -Foul Odor after Cleansing No -Negative Pressure Wound Therapy N/A -Primary Dressing Applied NonAdherent Mepilex Border Contact Layer -Other Dressing c.hydrogel -Primary Dressing Covered/Secured with Dry Gauze & Roll Gauze, Secured with Tape -Mepilex Border 2 Treatment Response Procedure Tolerated Well Pain Scale: 0-10 Numeric Is Patient Pain Free? Yes Yes Teaching: Wound Center Dressing Your Wound -Person Taught Patient Patient -Teaching Method Discussion, Discussion, Demonstration Demonstration -Response to teaching Verbalize Verbalize understanding understanding WC - Visit Discharge Discharge Condition Stable Stable Ambulatory Status Ambulatory Ambulatory Transportation Private Auto Private Auto Accompanied by self Medication Reconcilliation completed & No No provided to patient/care provider Clinical Summary of Care Provided Yes Yes Additional Wound Tissue Removed: Yellow slough, devitalized tissue Assessment/Plan Assessment/Plan (1) Open wound of right lower leg due to dog bite: CODE(S): S81.851A - Open bite, right lower leg, initial encounter; W54.0XXA - Bitten by dog, initial encounter PLAN: Plan Vickie's wound is healed. At home wound-care instructions: Will have her protect the wound with lotion and foam dressing for the next few days. Off-loading: The patient was instructed to avoid pressure and friction on the affected areas. Reposition every 2 hours at minimum. Avoid prolonged standing and/or dangling of legs. When seated, feet should be elevated at chest level. Frequent ambulation is encouraged. Diet: Patient encouraged to increase protein intake while taking caution to avoid high carbohydrate and/or sugar intake. Labs/cultures/imaging: Wound culture was negative for infection. Follow-up: She will be discharged from treatment today. It has been a please caring for her. Note: [employer] speech recognition chief cruiser software was used to create portions of this document. Sound-alike and misspelled words, as well as other chief cruiser errors may be contained in the documentation.
== END 2022-07-03 23:59 | disposition home or self-care (01) ==
LOC: WC 09:30
PROVIDERS: PCP Family Medicine; Visit Provider Family Medicine
DX: S81.851A Open bite, right lower leg, initial encounter (principal); W54.0XXA Bitten by dog, initial encounter; M25.551 Pain in right hip; M25.552 Pain in left hip
CPT/HCPCS: 11042; 99213; G0463

== ENCOUNTER 2022-07-15 11:06 | Emergency (ER) | payer MEDICARE, SELFPAY ==
[2022-07-15 11:07] VITALS: BP 188/84; PULSE 92; RESP 16; TEMP 36.2; O2SAT 100; BMI 32.1
--- NOTE | 2022-07-15 11:28 | CT_ITS ---
EXAM: CT ABDOMEN AND PELVIS WITHOUT INTRAVENOUS CONTRAST CLINICAL INDICATION: Right flank pain. Prior hysterectomy and tubal ligation. TECHNIQUE: Helically acquired images were obtained of the abdomen and pelvis without intravenous contrast. This CT exam was performed using one or more of the following dose reduction techniques: automated exposure control, adjustment of the mA and/or kV according to patient size, and/or use of iterative reconstruction technique. This report was created using [employer] report generation technology. RADIATION DOSE: CTDIvol = 9.05 mGy, DLP = 415.83 mGy-cm COMPARISON: CT abdomen and pelvis with contrast 01/07/2016. FINDINGS: LOWER THORAX: Unremarkable. Lung bases are clear. No cardiomegaly. No significant pericardial effusion. ABDOMEN: LIVER: Multiple cysts in the left hepatic lobe are unchanged. GALLBLADDER AND BILE DUCTS: Unremarkable. No calcified gallstones. No gallbladder distention or wall edema. No intra- or extrahepatic biliary ductal dilation. PANCREAS: Unremarkable. No focal cystic mass. SPLEEN: Unremarkable. Normal size without focal cystic or solid mass. ADRENALS: Unremarkable. No nodules. KIDNEYS AND URETERS: Unremarkable. Normal renal size and position. No hydronephrosis. STOMACH AND BOWEL: Few diverticula in the sigmoid colon without diverticulitis. No stomach or bowel distention. PELVIS: APPENDIX: Normal. BLADDER: Unremarkable. REPRODUCTIVE: Postsurgical absence of the uterus. ABDOMEN and PELVIS: INTRAPERITONEAL SPACE: Unremarkable. No ascites or other fluid collection. No free air. BONES/JOINTS: Unremarkable. No suspicious lytic or blastic abnormality. SOFT TISSUES: Unremarkable. No discrete abdominal or pelvic wall hernia. VASCULATURE: Unremarkable. Abdominal aorta is non-dilated. LYMPH NODES: Unremarkable. No enlarged lymph nodes. CT/Abdomen/Pelvis without Cont IMPRESSION: 1. No acute findings in the abdomen or pelvis. 2. Multiple cysts in the left hepatic lobe are unchanged. 3. Few tiny diverticula in the sigmoid colon without diverticulitis. 4. No significant interval change when compared to 01/07/2016. Electronically Signed: Asim Kwon MD at 11:59 EST ,
--- NOTE | 2022-07-15 11:30 | EX.ED.DYSGE1 ---
HPI <ANTIONETTE May - Last Filed: 07/15/22 13:22> History of Present Illness Chief Complaint: Flank Pain Narrative Narrative: 67-year-old female with no significant medical history presents to the emergency department with complaints of sudden onset of right-sided flank pain. Patient states she woke up today, was performing her daily activities when she had severe pain to her right flank. Patient states that it was a searing sharp pain. She then states to have pressure in her right flank area. She is has been urinating more frequently. She denies any fever or chills. Patient did have a sudden onset of nausea however no vomiting. PFSH <ANTIONETTE May - Last Filed: 07/15/22 13:22> [facility] Medical History Diabetes difficulty with anthesia Home Medications ibuprofen 200 mg capsule 200 mg PO ONCE 06/06/17 [History Last Taken Unknown] nirmatrelvir 300 mg (150 mg x2)-ritonavir 100 mg tablet,dose pack(EUA) (Paxlovid) See Rx Instructions PO .COMPLEX #30 tabs 05/18/22 [Rx Last Taken Unknown] hydrocodone-acetaminophen 5-325mg 5mg-325mg 1 tab PO Q4H PRN PRN Pain 3 days #10 TABLETS 07/15/22 [Rx Last Taken Unknown] Allergy/AdvReac Type Severity Reaction Status Date / Time promethazine Allergy Mild unknown Verified 07/15/22 11:09 sulfamethoxazole Allergy Hives Verified 07/15/22 11:09 [From ] trimethoprim [From ] Allergy Hives Verified 07/15/22 11:09 chlorpheniramine AdvReac Other Verified 07/15/22 11:14 codeine AdvReac Vomiting Verified 07/15/22 11:09 phenylephrine AdvReac Other Verified 07/15/22 11:14 Family History Father Heart disease Mother Colon cancer Heart disease Diabetes Aunt Colon cancer Surgical History H/O: History of bilateral carpal tunnel release S/P right knee arthroscopy Status post bunionectomy Social History (Updated 01/27/19 @ 10:[address] Luz Elena Hardwick, DO) Smoking Status: Former smoker ROS <ANTIONETTE May - Last Filed: 07/15/22 13:22> ROS ED ROS Narrative Constitutional: Negative for fever, chills, weight loss, weakness Eyes: Negative for vision loss, vision change, double vision ENT: Negative for any sore throat, ear pain, congestion Cardiovascular: Negative for any chest pain, tightness, palpitations Respiratory: Negative for any cough, sputum production, hemoptysis, dyspnea, dyspnea on exertion, orthopnea Gastrointestinal: Negative for any abdominal pain, vomiting, diarrhea, constipation, blood in stool, blood in vomit. Positive right flank pain : Negative for any urinary frequency, dysuria, retention, blood in urine Muscle skeletal: Negative for any muscle joint pain, stiffness, myalgias, arthralgias, neck pain. Positive right flank pain Neurological: Negative for any headache, syncope, numbness or tingling, dizziness Skin: Negative for any rashes, lumps, itching, abrasions, lacerations Psychiatric: Negative for any depression, anxiety, stress, suicidal ideation, homicidal ideation Hematologic: Negative for any easy bruising, excessive bruising, easy bleeding Allergies: Negative for any eczema, hives, rash EXAM <ANTIONETTE May - Last Filed: 07/15/22 13:22> Physical Exam Narrative Exam Narrative: Vital signs reviewed. Patient appears to be in mild distress secondary to right flank pain. HEET: Head normocephalic atraumatic, TMs clear bilaterally. Posterior pharynx is clear, moist mucous membranes. Nares clear bilaterally. Neck: Supple with no lymphadenopathy or tenderness. No signs of meningismus, negative jolt sign. Cardiac: Regular rate and rhythm no murmurs gallops or rubs, equal peripheral pulses bilaterally. Respiratory: Lungs clear to auscultation bilaterally. No chest tenderness. Abdomen: Soft, nontender, nondistended. No abdominal bruit or pulsatile masses. No hepatosplenomegaly Extremities: No peripheral edema, no signs of gross trauma or deformity. Active full range of motion of all extremities. Neuro: Cranial nerves II through XII intact, no focal neurological deficits. Skin: Clean dry and intact with no rash, purpura, petechiae, vesicles or pustules. Backs/flank: No CVA tenderness, no midline spinal tenderness, no deformity. Psych: Normal mood and affect. No SI, HI or acute psychosis. Const Vital Signs: 07/15/22 11:07 07/15/22 13:38 Temperature 97.2 F L 97.4 F L Temperature Source Temporal Pulse Rate 92 90 Respiratory Rate 16 16 Blood Pressure 188/84 H 154/82 H Blood Pressure Mean 118 Pulse Ox 100 99 Oxygen Delivery Method Room Air <Dr. Horacio Foreman DO - Last Filed: 07/15/22 13:47> Physical Exam Const Vital Signs: 07/15/22 11:07 07/15/22 13:38 Temperature 97.2 F L 97.4 F L Temperature Source Temporal Pulse Rate 92 90 Respiratory Rate 16 16 Blood Pressure 188/84 H 154/82 H Blood Pressure Mean 118 Pulse Ox 100 99 Oxygen Delivery Method Room Air MDM <ANTIONETTE May - Last Filed: 07/15/22 13:22> [facility] Lab Data Labs: Laboratory Results - last 24 hr 07/15/22 07/15/22 07/15/22 11:25 11:25 12:30 WBC 11.2 H RBC 4.66 Hgb 14.6 Hct 44.5 MCV 95.5 MCH 31.3 MCHC 32.8 RDW Std Deviation 42.0 RDW Coeff of Parviz 12.0 Plt Count 304 MPV 9.6 Immature Gran % (Auto) 0.700 Neut % (Auto) 81.5 H Lymph % (Auto) 13.2 L [place] % (Auto) 4.0 Eos % (Auto) 0.2 Baso % (Auto) 0.4 Absolute Neuts (auto) 9.1 H Absolute Lymphs (auto) 1.48 Nucleated RBC % 0 Sodium 137 Potassium 4.4 Chloride 105 Carbon Dioxide 26.0 Anion Gap 6 BUN 22 H Creatinine 1.11 H Estim Creat Clear Calc 54.46 Est GFR (MDRD) Af Amer 63 Est GFR (MDRD) Non-Af 52 L BUN/Creatinine Ratio 19.8 Glucose 152 H Calcium 9.9 Total Bilirubin 0.40 AST 18 ALT 20 Alkaline Phosphatase 79 Total Protein 8.2 Albumin 4.3 Globulin 3.9 Albumin/Globulin Ratio 1.1 Lipase 237 Urine Color Yellow Urine Clarity Sl. Cloudy Urine pH 5.0 Ur Specific [place] 1.025 Urine Protein 15 H Urine Glucose (UA) Normal Urine Ketones Negative Urine Occult Blood Negative Urine Nitrite Negative Urine Bilirubin Negative Urine Urobilinogen Normal Ur Leukocyte Esterase Negative Urine RBC 0 SEEN Urine WBC 0 SEEN Ur Squamous Epith Cells 0 SEEN Urine Bacteria 0 SEEN Urine Mucus 0 SEEN Radiography Diagnostic Testing: Clinical Impression(s) from Imaging Studies Abdomen/Pelvis CT 07/15/22 11:28 IMPRESSION: 1. No acute findings in the abdomen or pelvis. 2. Multiple cysts in the left hepatic lobe are unchanged. 3. Few tiny diverticula in the sigmoid colon without diverticulitis. 4. No significant interval change when compared to 01/07/2016. Electronically Signed: Asim Kwon MD at 11:59 EST , Treatment and Re-Evaluation Narrative: All radiologic examinations were read, reviewed by the emergency department attending. From these reads, a plan of care will be put in place. Patient arrives in mild distress secondary to right-sided flank pain, right-sided side pain. Patient presents to the emergency department for right side pain for the last day. Patient on initial exam was concerning for a renal calculi that was obstructive. Patient did receive a full abdominal work-up. Patient's CBC shows slight leukocytosis white blood count 11.2, patient's chemistries showed a creatinine of 1.1, this is consistent with the patient's laboratory studies from the spring 2021 and 2020. Patient's urinalysis was negative for any infection, no blood. Patient CT scan of the abdomen pelvis concerning for any renal calculi, hydronephrosis. This shows no acute process. There is no significant interval change when compared to the 01/07/2016 CT scan of the abdomen pelvis. Patient received IV fluids, IV Zofran, IV morphine. On reassessment, the patient was in a position of comfort. I did speak with the patient's who was in the room, he thinks that this could be from her and him caring a deer 1 week ago as a muscle strain. Patient will get a short prescription of Wharton, she will continue to ice, form gentle stretching. She will also use ibuprofen. Patient instructed to return for any worsening pain, fever chills nausea vomiting. <Dr. Horacio Foreman, DO - Last Filed: 07/15/22 13:47> [facility] Narrative Medical decision making narrative: I have personally performed a face to face assessment of the patient and have reviewed the JESUS Note. I performed a substantive portion of the visit including all aspects of the following. My paz findings include: History is [patient seen in conjunction with physician project assistant. Patient presented with sudden onset of right-sided back pain this morning. She is never had discomfort like this before. Pain was up to a 6 or 7 out of 10 and now rates it about a 5 out of 10. It is not pleuritic. She denies any abdominal pain currently. Patient states last week she was urinating more frequently but denies any blood in her urine. She denies dysuria. She denies fevers. No history of kidney stones. She has had prior hysterectomy.] Exam is [HEENT-PERRLA, EOMI. Cranial nerves II through XII grossly intact. TMs clear. Mucous membranes moist. No adenopathy. Cardiovascular-regular rate and rhythm without murmur or ectopy Lungs-clear to auscultation, chest wall stable without crepitus or subcu emphysema Abdomen-normoactive bowel sounds, soft, nontender, no rebound or rigidity, no peritoneal signs. Patient on my exam has no CVA tenderness and difficult to reproduce her pain on palpation of her back muscles. Extremities-intact ?4, normal range of motion, normal pulses, atraumatic] Medical Decison Making [patient's work-up was significant for slightly elevated white count of 11.2. Chemistries unremarkable. LFTs were normal. Lipase was normal. Urinalysis without signs of infection. CT scan of the abdomen pelvis was unremarkable. At this point etiology of her pain unclear although I suspect may be muscular. Patient will be given a prescription for few Wharton for pain and she will use ibuprofen as well as needed for pain. Patient advised to follow-up with her primary care physician within next 3 to 5 days. Patient advised to return if worsening pain, fever, vomiting, or condition should worsen anyway.] Other additions or changes: [None] Lab Data Labs: Laboratory Results - last 24 hr 07/15/22 07/15/22 07/15/22 11:25 11:25 12:30 WBC 11.2 H RBC 4.66 Hgb 14.6 Hct 44.5 MCV 95.5 MCH 31.3 MCHC 32.8 RDW Std Deviation 42.0 RDW Coeff of Parviz 12.0 Plt Count 304 MPV 9.6 Immature Gran % (Auto) 0.700 Neut % (Auto) 81.5 H Lymph % (Auto) 13.2 L [place] % (Auto) 4.0 Eos % (Auto) 0.2 Baso % (Auto) 0.4 Absolute Neuts (auto) 9.1 H Absolute Lymphs (auto) 1.48 Nucleated RBC % 0 Sodium 137 Potassium 4.4 Chloride 105 Carbon Dioxide 26.0 Anion Gap 6 BUN 22 H Creatinine 1.11 H Estim Creat Clear Calc 54.46 Est GFR (MDRD) Af Amer 63 Est GFR (MDRD) Non-Af 52 L BUN/Creatinine Ratio 19.8 Glucose 152 H Calcium 9.9 Total Bilirubin 0.40 AST 18 ALT 20 Alkaline Phosphatase 79 Total Protein 8.2 Albumin 4.3 Globulin 3.9 Albumin/Globulin Ratio 1.1 Lipase 237 Urine Color Yellow Urine Clarity Sl. Cloudy Urine pH 5.0 Ur Specific [place] 1.025 Urine Protein 15 H Urine Glucose (UA) Normal Urine Ketones Negative Urine Occult Blood Negative Urine Nitrite Negative Urine Bilirubin Negative Urine Urobilinogen Normal Ur Leukocyte Esterase Negative Urine RBC 0 SEEN Urine WBC 0 SEEN Ur Squamous Epith Cells 0 SEEN Urine Bacteria 0 SEEN Urine Mucus 0 SEEN Radiography Diagnostic Testing: Clinical Impression(s) from Imaging Studies Abdomen/Pelvis CT 07/15/22 11:28 IMPRESSION: 1. No acute findings in the abdomen or pelvis. 2. Multiple cysts in the left hepatic lobe are unchanged. 3. Few tiny diverticula in the sigmoid colon without diverticulitis. 4. No significant interval change when compared to 01/07/2016. Electronically Signed: Asim Kwon MD at 11:59 EST , Discharge Plan Triage Chief Complaint: Flank Pain ED Midlevel Provider: Logan Bliss ED Provider: Horacio Foreman Dx/Rx/DC Orders Clinical Impression: Strain of chest wall, Lumbar back pain, Acute flank pain Instructions: ED Back Pain (Acute or Chronic), ED Flank Pain, Uncertain Cause, ED Chest Wall Strain Prescriptions: New hydrocodone-acetaminophen 5-325 mg tablet 1 tab PO Q4H PRN PRN (Reason: Pain) 3 Days Qty: 10 0RF No Action ibuprofen 200 mg capsule 200 mg PO ONCE Paxlovid (EUA) 300 mg (150 mg x 2)-100 mg tablets,dose pack See Rx Instructions PO .COMPLEX Qty: 30 0RF Rx Instructions: take TWO 150 mg tablets of nirmatrelvir with ONE 100 mg tablet of ritonavir twice daily for 5 days PO Primary Care Provider: Juan Brand Referrals: Juan Brand, [Primary Care Provider] - Activity Restrictions/Additional Instructions: Take the pain medicine as needed. If pain gets worse, fever, chills, worsening symptoms please return Disposition Disposition: Home, Self Care Discharge Date/Time: 07/15/22 13:40
[2022-07-15] MEDS: 0.9% Normal Saline 1,000 ML 1000 ML IV (11:35)
[2022-07-15] MEDS: Ondansetron 4 MG/2 ML Vial IV (11:35)
[2022-07-15 11:36] LABS: Absolute Lymphocyte Count 1.48 X10^3/uL (0.83-4.51); Absolute Neutrophil Count 9.1 X10^3/uL (2.0-7.7); Basophil# 0.05 X10^3/uL; Basophil% 0.4 % (0-1); Eosinophil# 0.02 X10^3/uL; Eosinophils% 0.2 % (0-5); Hematocrit 44.5 % (37-47); Hemoglobin 14.6 g/dL (12.0-15.0); Lymphocyte # 1.48 X10^3/ul (0.83-4.51); Lymphocyte % 13.2 % (19-41); Mean Corp Hgb Conc 32.8 g/dL (32-36); Mean Corpuscular Hgb 31.3 pg (27.0-32.0); Mean Corpuscular Volume 95.5 fL (81-99); Mean Platelet Vol. 9.6 fl (6.2-12.0); Monocyte# 0.45 X10^3/uL; NRBC Flagged by Analyzer 0 % (0-5); Neutrophil # 9.09 X10^3/uL (2.7-7.7); Neutrophil % 81.5 % (47-70); Platelet Count 304 K/mm3 (150-450); Red Blood Count 4.66 M/mm3 (4.2-5.4); White Blood Count 11.2 K/mm3 (4.4-11.0)
[2022-07-15 11:49] LABS: ALB/GLOB Ratio 1.1 RATIO (0.9-2.4); AST(SGOT) 18 U/L (15-37); Alanine Aminotransfer ALT/SGPT 20 U/L (13-56); Albumin, Serum 4.3 g/dL (3.2-5.0); Alkaline Phosphatase 79 U/L (45-117); Anion Gap 6 (5-15); BUN 22 mg/dL (7-18); BUN/Creat Ratio 19.8 RATIO (10-20); Calcium,Total 9.9 mg/dL (8.5-10.1); Chloride 105 mmol/L (98-107); Creatinine, Serum 1.11 mg/dL (0.55-1.02); EST Glomerular Filtration Rate 52 mL/min (>60); Est Glom Filt Rate - Afr Amer 63 mL/min (>60); Estimated Creatinine Clearance 54.46 ml/min; Globulin 3.9 g/dL (2.2-4.2); Glucose 152 mg/dL (74-106); Lipase 237 U/L (73-393); Potassium 4.4 mmol/L (3.5-5.1); Protein, Total 8.2 g/dL (6.4-8.2); Sodium Level 137 mmol/L (136-145)
[2022-07-15] MEDS: Morphine 4 MG/ML Syringe IV (11:56)
[2022-07-15 12:43] LABS: Bacteria 0 SEEN /hpf (None Seen); Mucous, Urine 0 SEEN /hpf (<or=2+); Red Blood Cells-Urine 0 SEEN /hpf (0-5); Squamous Epithelial Cells - UA 0 SEEN /hpf (5-10); White Blood Cells 0 SEEN /hpf (0-5)
[2022-07-15 12:55] LABS: Color, Urine Yellow (Yellow); Glucose, Dipstick Normal (Normal); Ketone-Dipstick Negative (Negative); Leukocyte Esterase-Dipstick Negative /ul (Negative); Nitrite-Dipstick Negative (Negative); Occult Blood-Urine Negative /ul (Negative); Protein-Dipstick 15 mg/dl (Negative); Specific Gravity, Urine 1.025 (1.002-1.030); Urine Bilirubin Dipstick Negative (Negative); Urine Clarity Sl. Cloudy (Clear); Urine Urobilinogen Normal (Normal)
[2022-07-15 13:38] VITALS: BP 154/82; PULSE 90; RESP 16; TEMP 36.3; O2SAT 99
== END 2022-07-15 13:40 | disposition home or self-care (01) ==
PROVIDERS: Nurse Practitioner; Emergency Provider Emergency Medicine; PCP Family Medicine; Visit Provider Emergency Medicine
DX: S29.011A Strain of muscle and tendon of front wall of thorax, initial encounter (principal); M54.50 Low back pain, unspecified; R10.9 Unspecified abdominal pain; Z87.891 Personal history of nicotine dependence; X58.XXXA Exposure to other specified factors, initial encounter
CPT/HCPCS: 74176; 80053; 81001; 83690; 85025; 96361; 96374; 96375; 99283; J7030; A4216; J2405

== ENCOUNTER 2022-11-05 08:34 | Emergency (ER) | payer MEDICARE, SELFPAY ==
[2022-11-05 08:34] VITALS: BP 165/95; PULSE 82; RESP 16; TEMP 36.4; O2SAT 100; BMI 32.7
--- NOTE | 2022-11-05 08:52 | EX.ED.VIS.EY ---
HPI History of Present Illness Chief Complaint: Eye Problem Informant: patient Onset/Context/Timing Location: Left Eye Onset: Yesterday Context: Sudden Onset Timing: Continuous Worsened by: Nothing Relieved by: Nothing Associated Symptoms Associated Symptoms - Eyes: Crusting, Drainage, Eyelid swelling, Itching, Matting, Pain and Redness; Negative for Burning or Photophobia Visual Changes: left: Blurred vision History of injury: No Visual correction: Glasses Narrative Narrative: Patient presents with left eye redness and swelling that began yesterday. Patient states it is gradually gotten worse. Patient states it has been constant. Patient states nothing makes it better and nothing makes it worse. Patient states she went to an urgent care yesterday and was given oral antibiotics as well as a prescription for antibiotic drops. Patient states that she did not get the antibiotic drops filled due to insurance reasons but she has been taking the oral antibiotics. Patient states she woke up today and her left eye was matted and crusted shut. Patient states she was having some yellow drainage. states that other family members have had pinkeye recently. [facility] Medical History Diabetes difficulty with anthesia Home Medications ibuprofen 200 mg capsule 200 mg PO ONCE 06/06/17 [History Last Taken Unknown] hydrocodone-acetaminophen 5-325mg 5mg-325mg 1 tab PO Q4H PRN PRN Pain 3 days #10 TABLETS 07/15/22 [Rx Last Taken Unknown] azithromycin 1 % eye drops 1 drp ophthalmic (eye) DAILY 7 days #2.5 mL 11/04/22 [Rx Last Taken Unknown] azithromycin 250 mg tablet (Zithromax Z-Wade) See Rx Instructions PO .COMPLEX #6 tabs 11/04/22 [Rx Last Taken Unknown] Allergy/AdvReac Type Severity Reaction Status Date / Time promethazine Allergy Mild unknown Verified 11/05/22 08:37 sulfamethoxazole Allergy Hives Verified 11/05/22 08:37 [From ] trimethoprim [From ] Allergy Hives Verified 11/05/22 08:37 chlorpheniramine AdvReac Other Verified 11/05/22 08:37 codeine AdvReac Vomiting Verified 11/05/22 08:37 phenylephrine AdvReac Other Verified 11/05/22 08:37 Family History Father Heart disease Mother Colon cancer Heart disease Diabetes Aunt Colon cancer Surgical History H/O: History of bilateral carpal tunnel release S/P right knee arthroscopy Status post bunionectomy Social History Smoking Status: Former smoker ROS ROS ED Constitutional Constitutional ED: Denies chills or fever(s) Eyes Eyes: Reports blurry vision; Denies diplopia ENT ENT ED: Reports ear pain bilateral and sore throat; Denies rhinorrhea Cardiovascular Cardiovascular: Denies chest pain or palpitations Respiratory/Chest Respiratory/Chest: Denies cough or dyspnea Gastrointestinal Gastrointestinal: Denies nausea or vomiting Genitourinary Genitourinary ED: Denies dysuria or hematuria Musculoskeletal Musculoskeletal: Denies back pain or neck pain Integumentary Denies abscess or rash Neurologic Neurologic: Reports headache(s); Denies weakness Allergic/Immunologic Allergic/Immunologic ED: Denies mouth swelling or urticaria EXAM Physical Exam Const Vital Signs: 11/05/22 08:34 Temperature 97.5 F L Temperature Source Temporal Pulse Rate 82 Respiratory Rate 16 Blood Pressure 165/95 H Blood Pressure Mean 118 Pulse Ox 100 Oxygen Delivery Method Room Air Positive well nourished and well developed General Appearance ED: well developed and NAD HEENT Reports TM's clear atraumatic Tympanic Membrane ED: Yes TM's clear bilateral Eyes Eyes Narrative: Pupils are equal, round, and reactive to light bilaterally. Extraocular muscles are intact. There is no pain with extraocular motion. Conjunctiva was injected on the left. There is edema and erythema of the left upper and lower eyelids. There is no purulent discharge or drainage noted. Funduscopic examination was benign. Anterior chamber was clear. There is no hyphema. Neck supple and no JVD Resp normal respiratory effort and clear to auscultation bilaterally Cardio regular rate and regular rhythm GI non-tender and non-distended Palpation: soft Neuro oriented x3, CN's II-XII intact bilaterally, moves all extremities and no sensory deficits noted Sensorium / Orientation: alert Motor Exam: strength 5/5 throughout MDM MDM MDM Narrative Medical decision making narrative: Differential diagnosis includes periorbital cellulitis, orbital cellulitis, and conjunctivitis. CT scan of the orbits will be obtained to assess for orbital cellulitis versus periorbital cellulitis. CBC will be obtained to assess for leukocytosis and anemia. Basic metabolic profile will be obtained to assess for renal function and electrolyte abnormality. Lab Data Attestation: I reviewed the patient's lab results. Lab results narrative: CBC was reviewed and was within normal limits. Basic metabolic profile was reviewed. Creatinine was only slightly elevated at 1.11. Glucose was 173. The remainder was within normal limits. Radiography Diagnostic Testing: CT scan of the orbits was obtained. There is mucosal thickening of the ethmoid sinuses. There is no evidence of orbital cellulitis. This was interpreted by the radiologist and was also independently reviewed by myself. Treatment and Re-Evaluation Narrative: Patient was given Cipro ophthalmic drops here. Patient was instructed to use these every 2-3 hours while awake. Patient was instructed on good handwashing. Patient was instructed to continue her oral antibiotic as prescribed. Patient was instructed to follow-up with her team primary care physician in 3 to 5 days. Patient was instructed return if worse in any way. Patient understood and was agreeable with the plan. All questions were answered. Discharge Plan Triage Chief Complaint: Eye Problem ED Provider: Sander Oneill Dx/Rx/DC Orders Clinical Impression: Conjunctivitis, Periorbital cellulitis of left eye Instructions: ED Conjunctivitis, Bacterial, ED Periorbital Cellulitis Prescriptions: No Action ibuprofen 200 mg capsule 200 mg PO ONCE azithromycin 1 % drops 1 drp ophthalmic (eye) DAILY 7 Days Qty: 2.5 0RF Rx Instructions: 1 drop twice a day for 2 days, then 1 drop daily for 5 days. azithromycin [Zithromax Z-Wade] 250 mg tablet See Rx Instructions PO .COMPLEX Qty: 6 0RF Rx Instructions: For 250 mg dose pack: take 500 mg today (day 1), then 250 mg for 4 days (days 2-5) PO hydrocodone-acetaminophen 5-325 mg tablet 1 tab PO Q4H PRN PRN (Reason: Pain) 3 Days Qty: 10 0RF Primary Care Provider: Juan Brand Referrals: Juan Brand, [Primary Care Provider] - 3-5 Days Tash Deng MD [Med Staff - Active Staff] - 3-5 Days Activity Restrictions/Additional Instructions: Use the Cipro eyedrops every 2-3 hours while awake. Wash your hands anytime you touch your eye including putting your eyedrops in. Disposition Disposition: Home, Self Care
[2022-11-05 09:34] LABS: Absolute Lymphocyte Count 1.75 X10^3/uL (0.83-4.51); Absolute Neutrophil Count 4.5 X10^3/uL (2.0-7.7); Basophil# 0.08 X10^3/uL; Basophil% 1.1 % (0-1); Eosinophil# 0.11 X10^3/uL; Eosinophils% 1.5 % (0-5); Hematocrit 43.6 % (37-47); Hemoglobin 14.3 g/dL (12.0-15.0); Lymphocyte # 1.75 X10^3/ul (0.83-4.51); Lymphocyte % 24.3 % (19-41); Mean Corp Hgb Conc 32.8 g/dL (32-36); Mean Corpuscular Hgb 31.4 pg (27.0-32.0); Mean Corpuscular Volume 95.8 fL (81-99); Mean Platelet Vol. 9.5 fl (6.2-12.0); Monocyte# 0.72 X10^3/uL; NRBC Flagged by Analyzer 0 % (0-5); Neutrophil # 4.51 X10^3/uL (2.7-7.7); Neutrophil % 62.5 % (47-70); Platelet Count 275 K/mm3 (150-450); RBC Distribution Width CV 12.1 % (11.6-14.6); RBC Distribution Width SD 42.1 fl (35.1-43.9); Red Blood Count 4.55 M/mm3 (4.2-5.4); White Blood Count 7.2 K/mm3 (4.4-11.0)
[2022-11-05] MEDS: Ciprofloxacin 0.3% 2.5ml Bottle LEFT EYE ×2 (09:40→11:01)
[2022-11-05 09:53] LABS: Anion Gap 6 (5-15); BUN 15 mg/dL (7-18); BUN/Creat Ratio 13.5 RATIO (10-20); Calcium,Total 10.4 mg/dL (8.5-10.1); Chloride 105 mmol/L (98-107); Creatinine, Serum 1.11 mg/dL (0.55-1.02); EST Glomerular Filtration Rate 52 mL/min (>60); Est Glom Filt Rate - Afr Amer 63 mL/min (>60); Estimated Creatinine Clearance 55.49 ml/min; Glucose 173 mg/dL (74-106); Potassium 4.1 mmol/L (3.5-5.1); Sodium Level 138 mmol/L (136-145)
--- NOTE | 2022-11-05 10:06 | CT_ITS ---
STUDY: CT ORBITS WITH CONTRAST REASON FOR EXAM: Female, 67 years old. Eye pain -- Rule out orbital vs periorbital cellulitis RADIATION DOSAGE (If Supplied By Facility): CTDIvol = ( 29.38 ) mGy, DLP = ( 591.53 ) mGycm TECHNIQUE: The patient was scanned in a multi detector CT scanner. Transaxial imaging was performed following the intravenous administration of IV 100mL Isovue-370. Sagittal and coronal images were reconstructed. Individualized dose optimization techniques were used for this CT. COMPARISON: None. FINDINGS: Normal globes. Normal intraconal spaces. Normal optic nerve sheath complex. Normal bilateral extraocular muscles. Normal lacrimal glands. Normal bilateral medial and inferior orbital gaffney. Normal bilateral maxillary bones. Normal bilateral frontozygomatic arches. Normal bilateral zygomatic temporal arches. Normal frontal sinus. Mucosal thickening of the ethmoid sinuses. Normal maxillary sinuses. Normal sphenoid sinuses. Normal soft tissue structures. There is no demonstrated abnormal enhancement. CT/Orb Sella Post Fossa Ear W/CON IMPRESSION: Mucosal thickening of the ethmoid sinuses. Electronically Signed: Tyrone Moss MD at 10:28 EDT ,
== END 2022-11-05 11:13 | disposition home or self-care (01) ==
PROVIDERS: Emergency Provider Emergency Medicine; PCP Family Medicine; Visit Provider Emergency Medicine
DX: L03.213 Periorbital cellulitis (principal); H10.9 Unspecified conjunctivitis; Z87.891 Personal history of nicotine dependence
CPT/HCPCS: 70481; 80048; 85025; 99283; Q9967; A4216

== ENCOUNTER → 2022-11-06 | Outpatient (CLI) | payer MEDICARE, SELFPAY ==
--- NOTE | 2022-11-06 07:36 | BI_ITS ---
MAMMOGRAPHY - BILATERAL SCREENING REASON FOR EXAM: Female, 67 years old. Routine annual screening examination. PERTINENT HISTORY: Non-contributory. TECHNIQUE: Digital bilateral breast satish (3D mammographic acquisition) in the CC and MLO projections. 2-D mediolateral oblique (MLO) and craniocaudad (CC) views of both breasts were obtained. CAD: Full Field Digital Mammography with Computer Added Detection was performed. COMPARISON: Comparison is made with prior examination dated October 31, 2021 and October 28, 2020 FINDINGS: Breast Composition: The breasts are heterogeneously dense, which may obscure small masses. There are no dominant masses or suspicious calcifications. Stable scattered bilateral microcalcifications. No focal cluster is seen. These most likely secretory in nature. No other significant abnormalities are identified. There has been no significant change since the prior study.
== END | disposition home or self-care (01) ==
LOC: OPBI 07:34
PROVIDERS: PCP Family Medicine; Referring Provider Family Medicine; Visit Provider Family Medicine
DX: Z12.31 Encounter for screening mammogram for malignant neoplasm of breast (principal)
CPT/HCPCS: 77063; 77067

== ENCOUNTER → 2022-11-23 | Outpatient (CLI) | payer MEDICARE, SELFPAY ==
[2022-11-23 08:29] LABS: PTHIN 93.9 pg/mL (18.4-80.1)
[2022-11-23 08:32] LABS: Vitamin D,25 Hydroxy 32.6 ng/mL
[2022-11-23 08:35] LABS: Hemoglobin A1c 6.7 % (3.8-5.6)
[2022-11-23 08:59] LABS: AST(SGOT) 15 U/L (15-37); Alanine Aminotransfer ALT/SGPT 22 U/L (13-56); Albumin, Serum 3.7 g/dL (3.2-5.0); Alkaline Phosphatase 74 U/L (45-117); Bilirubin, Direct 0.06 mg/dL (0.00-0.30); Cholesterol 269 mg/dL (200); Globulin 3.5 g/dL (2.2-4.2); High Density Lipoprotein 38 mg/dL; Protein, Total 7.2 g/dL (6.4-8.2); Triglycerides 439 mg/dL
[2022-11-23 09:11] LABS: Microalbumin,Random Urine 8.4 mg/L (NO RANGE EST.)
== END | disposition home or self-care (01) ==
LOC: LAB 07:43
PROVIDERS: PCP Family Medicine; Visit Provider Family Medicine
DX: E11.22 Type 2 diabetes mellitus with diabetic chronic kidney disease (principal); N18.31 Chronic kidney disease, stage 3a
CPT/HCPCS: 36415; 80061; 80076; 82043; 82306; 82570; 83036; 83970

== ENCOUNTER → 2023-04-01 | Outpatient (CLI) | payer MEDICARE, SELFPAY ==
--- NOTE | 2023-04-01 11:49 | RAD_ITS ---
STUDY: X-RAY - LUMBAR SPINE REASON FOR EXAM: Female, 68 years old. Other intervertebral disc degeneration, lumbosacral region TECHNIQUE: 3 view(s) of the lumbar spine were obtained. COMPARISON: None FINDINGS: Slightly saturated lumbar lordosis. Minimal scoliosis of the lumbar spine with convexity to the left. There is a normal alignment of the vertebrae. There is diffuse demineralization with multi-level endplate spondylosis. There is multi-level degenerative disc disease with multi-level disc space narrowing. There is no demonstrated fracture. Multilevel bilateral facet hypertrophy, more significant from L3 to S1. There is atherosclerotic calcification of the abdominal aorta without a demonstrated aneurysm. RAD/Lumbar Spine 2 or 3 Views IMPRESSION: Multilevel spondylosis/degenerative disease with no acute fracture or spondylolisthesis. Electronically Signed: Esther Ramírez MD at 2:23 EDT ,
== END | disposition home or self-care (01) ==
LOC: RAD 11:42
PROVIDERS: PCP Family Medicine; Referring Provider Anesthesiology Pain Medicine; Visit Provider Anesthesiology Pain Medicine
DX: M51.37 Other intervertebral disc degeneration, lumbosacral region (principal)
CPT/HCPCS: 72100

== ENCOUNTER → 2023-10-18 | Outpatient (CLI) | payer MEDICARE, SELFPAY ==
--- NOTE | 2023-10-18 09:55 | RAD_ITS ---
STUDY: X-RAY - RIGHT KNEE REASON FOR EXAM: Female, 68 years old. Right knee pain TECHNIQUE: 4 view(s) of the knee. COMPARISON: None. FINDINGS: Normal visualized distal femur. Sclerosis of the medial tibial plateau. Normal proximal tibiofibular articulation. There is severe degenerative arthrosis of the medial femorotibial compartment with severe joint space narrowing. Normal lateral femorotibial compartment. Normal patellofemoral articulation. Small joint effusion. RAD/Knee 4 or More Views IMPRESSION: Marked degree of joint space narrowing involving the medial compartment of the knee joint with evidence of sclerosis of the medial tibial plateau. Electronically Signed: Tyrone Moss MD at 10:28 EDT ,
== END | disposition home or self-care (01) ==
LOC: MTRAD 09:55
PROVIDERS: PCP Family Medicine; Referring Provider Physician Assistant Surgical; Visit Provider Physician Assistant Surgical
DX: S86.911A Strain of unspecified muscle(s) and tendon(s) at lower leg level, right leg, initial encounter (principal)
CPT/HCPCS: 73564

== ENCOUNTER → 2023-11-08 | Outpatient (CLI) | payer MEDICARE, SELFPAY ==
--- NOTE | 2023-11-08 08:01 | BI_ITS ---
MAMMOGRAPHY - BILATERAL SCREENING REASON FOR EXAM: Female, 68 years old. Routine annual screening examination. PERTINENT HISTORY: Non-contributory. TECHNIQUE: Digital bilateral breast noah (3D mammographic acquisition) in the CC and MLO projections. 2-D mediolateral oblique (MLO) and craniocaudad (CC) views of both breasts were obtained. CAD: Full Field Digital Mammography with Computer Added Detection was performed. COMPARISON: Comparison is made with prior study dated November 06, 2022 and October 31, 2021. FINDINGS: Breast Composition: The breasts are heterogeneously dense, which may obscure small masses. There are no dominant masses or suspicious calcifications. Stable scattered bilateral microcalcifications. No focal clusters seen. No other significant abnormalities are identified. There has been no significant change since the prior study. BI/SCRN MAMM (CAD)W/NOAH BILAT IMPRESSION: Stable bilateral screening mammogram. Yearly follow-up mammogram recommended. (A) ASSESSMENT CATEGORY: BIRADS Category 2: Benign. A letter regarding these results will be sent to the patient by the facility within 30 days. Approximately 10% of breast cancers are not detected by mammography. A normal mammogram should not delay biopsy of a clinically suspicious abnormality. [id number] Electronically Signed: Tyrone Moss MD at 8:43 EDT ,
== END | disposition home or self-care (01) ==
LOC: OPBI 07:59
PROVIDERS: PCP Family Medicine; Referring Provider Family Medicine; Visit Provider Family Medicine
DX: Z12.31 Encounter for screening mammogram for malignant neoplasm of breast (principal)
CPT/HCPCS: 77063; 77067

== ENCOUNTER 2024-01-30 10:18 | Emergency (ER) | payer MEDICARE, SELFPAY ==
[2024-01-30 10:19] VITALS: BP 151/78; PULSE 99; RESP 14; TEMP 36.8; O2SAT 100; BMI 34.2
--- NOTE | 2024-01-30 11:16 | EDS_ITS ---
HPI HPI - GI History of Present Illness Chief Complaint: Abd Pain Narrative Narrative: 68-year-old female who denies significant past medical history except for remote presents with suprapubic to bilateral lower quadrant abdominal pain that she has had for the last 2 to 3 days. She denies any fevers or chills, no nausea or vomiting. She last had a bowel movement this morning that contained mucus. There is no exacerbating or alleviating factors to her pain. She states its intermittent and comes and goes. It is more of a sharp stabbing pain. It is not necessarily worse with movement. She took ibuprofen the other day with minimal relief of her symptoms. She presents because of the continued pain in her lower abdomen. [facility] Medical History Mid back pain on right side Thoracic myofascial strain difficulty with anthesia Diabetes Home Medications ?Medication ?Instructions ?Recorded ?Last Taken ?Type ciprofloxacin HCl 500 mg tablet 500 mg PO BID #20 tabs 01/30/24 Unknown Rx (Cipro) hydrocodone-acetaminophen 5-325mg 1 tab PO Q6H PRN PRN Pain 3 days 01/30/24 Unknown Rx 5mg-325mg #12 TABLETS metronidazole 500 mg tablet 500 mg PO TID #30 tabs 01/30/24 Unknown Rx Allergy/AdvReac Type Severity Reaction Status Date / Time promethazine Allergy Mild unknown Verified 01/30/24 10:18 sulfamethoxazole (From Allergy Hives Verified 01/30/24 10:18 Septra) trimethoprim (From Septra) Allergy Hives Verified 01/30/24 10:18 chlorpheniramine AdvReac Other Verified 01/30/24 10:18 codeine AdvReac Vomiting Verified 01/30/24 10:18 phenylephrine AdvReac Other Verified 01/30/24 10:18 Family History Father Heart disease Mother Colon cancer Heart disease Diabetes Aunt Colon cancer Surgical History S/P right knee arthroscopy Status post bunionectomy History of bilateral carpal tunnel release H/O: Social History Smoking Status: Former smoker ROS ROS ED ROS Narrative Constitutional: No fever, no chills. HEENT: No sore throat. No neck pain. No loss of vision. No rhinorrhea. Cardiovascular: No chest pain. No palpitations. No pedal edema. Respiratory: No cough, no shortness of breath. Abdominal: Suprapubic to bilateral lower quadrant abdominal pain. No nausea. No vomiting. No diarrhea. Stool with mucus. Genitourinary: No dysuria. No hematuria. Musculoskeletal: No myalgias. No arthralgias. Neurologic: No headaches. No dizziness. No lightheadedness. Skin: No rash. No change in color. Psychiatric: No depression. No anxiety. EXAM Physical Exam Narrative Exam Narrative: Afebrile. Vital signs noted. HEENT: Normocephalic. Atraumatic. PERRL, EOMI. Neck soft and supple. No point tenderness or step off. Cardiovascular: Regular rate and rhythm. No murmurs, rubs, or gallops appreciated. Respiratory: No tachypnea. Lungs clear to auscultation bilaterally. Gastrointestinal: Abdomen soft, mild tenderness to palpation suprapubic to bilateral lower quadrants with normoactive bowel sounds. No rebound or guarding. Neurological: Awake. Alert. Nonfocal, nonlateralizing. Skin: No rash. Normal color. No pallor. Musculoskeletal: No pedal edema. Full range of motion extremities. Const Vital Signs: 01/30/24 10:19 01/30/24 12:18 Temperature 98.3 F Temperature Source Temporal Pulse Rate 99 77 Respiratory Rate 14 16 Blood Pressure 151/78 H 147/77 H Blood Pressure Mean 102 100 Pulse Ox 100 100 Oxygen Delivery Method Room Air Room Air MDM MDM MDM Narrative Medical decision making narrative: Differential diagnosis includes but not limited to partial small bowel obstruction versus diverticulitis versus cystitis versus any ovarian pathology. Comprehensive workup was pursued. I have low suspicion for cystitis as she is not having dysuria or hematuria. More suspicious for diverticulitis given the mucus in her stool and the location of her pain. I do feel CT imaging is indicated. She declined any analgesics here in the emergency department initially. I reviewed her laboratory work and she has slightly elevated white count of 11.6 , hemoglobin 13.1, platelet count normal at 250. CMP is remarkable for a glucose of 175 and a normal anion gap of 5. Creatinine slightly elevated at 1.07. LFTs are grossly unremarkable. BUN normal. Urinalysis macro analysis is negative for infection. I reviewed the radiology report of the CT of the abdomen and pelvis which is consistent with sigmoid diverticulitis. This point in time, upon repeat examination she is resting comfortably and has not received analgesics here. I discussed with her outpatient treatment and the risks of perforation and abscess development and she acknowledges an understanding. She will get follow-up with her primary care provider in the next 3 to 5 days. I reviewed return instructions to the emergency department including fever, increased pain, new or worsening symptoms. She was given her first dose of Cipro and Flagyl here in the emergency department and prescription written for the next 10 days. She was also given a prescription for [place] which she has been written for previously. I feel she merits outpatient trial and does not require observation or admission at this time. Return instructions to the emergency department were reviewed. Disposition is discharged home in stable condition. History & Record Review Discussion w/independent historian: Patient Additional record(s) reviewed:: Prior labs and Other ([facility]AR[facility] report) Lab Data Attestation: I reviewed the patient's lab results. Labs: Laboratory Results - last 24 hr 01/30/24 01/30/24 11:08 12:26 WBC 11.6 H RBC 4.26 Hgb 13.1 Hct 39.7 MCV 93.2 MCH 30.8 MCHC 33.0 RDW Std Deviation 41.7 RDW Coeff of Parviz 12.2 Plt Count 250 MPV 9.3 Immature Gran % (Auto) 0.600 Neut % (Auto) 76.0 H Lymph % (Auto) 14.3 L Benzie % (Auto) 8.2 Eos % (Auto) 0.4 Baso % (Auto) 0.5 Absolute Neuts (auto) 8.8 H Absolute Lymphs (auto) 1.67 Nucleated RBC % 0 Sodium 137 Potassium 4.2 Chloride 106 Carbon Dioxide 26.0 Anion Gap 5 BUN 15 Creatinine 1.07 H Estim Creat Clear Calc 44.87 Est GFR (MDRD) Af Amer 65 Est GFR (MDRD) Non-Af 54 L BUN/Creatinine Ratio 14.0 Glucose 175 H Calcium 10.2 H Total Bilirubin 0.80 AST 19 ALT 25 Alkaline Phosphatase 85 Total Protein 7.4 Albumin 3.5 Globulin 3.9 Albumin/Globulin Ratio 0.9 Urine Color Straw Urine Clarity Clear Urine pH 6.5 Ur Specific Fleming 1.005 Urine Protein Negative Urine Glucose (UA) Normal Urine Ketones Negative Urine Occult Blood Negative Urine Nitrite Negative Urine Bilirubin Negative Urine Urobilinogen Normal Ur Leukocyte Esterase Negative Radiography Diagnostic Testing: Clinical Impression(s) from Imaging Studies Abdomen/Pelvis CT 01/30/24 12:06 IMPRESSION: Findings in comparison with the acute sigmoid diverticulitis with thickening of the sigmoid colon and increased markings in the surrounding mesenteric fat. Distended urinary bladder. Small amount of free fluid in the cul-de-sac. Fatty infiltration of the liver. Stable cyst in the left lobe liver. Electronically Signed: Tyrone Moss MD at 12:33 EDT , Discharge Plan Triage Chief Complaint: Abd Pain ED Provider: Asim Mcginnis Dx/Rx/DC Orders Clinical Impression: Sigmoid diverticulitis, Abdominal pain, lower Instructions: ED Diverticulitis Prescriptions: New ciprofloxacin HCl [Cipro] 500 mg tablet 500 mg PO BID Qty: 20 0RF metronidazole 500 mg tablet 500 mg PO TID Qty: 30 0RF hydrocodone-acetaminophen 5-325 mg tablet 1 tab PO Q6H PRN PRN (Reason: Pain) 3 Days Qty: 12 0RF Primary Care Provider: Juan Brand Referrals: Juan Brand DO [Primary Care Provider] - 3-5 Days Activity Restrictions/Additional Instructions: Take all antibiotics as directed. Return to the emergency department with fever, increased pain, inability to take the antibiotics. New or worsening symptoms. Print Language: Haitian Disposition Disposition: Home, Self Care
[2024-01-30] MEDS: 0.9% Normal Saline (1000mL) 1,000 ML 999 ML IV (11:29)
[2024-01-30 11:32] LABS: Absolute Lymphocyte Count 1.67 X10^3/uL (0.83-4.51); Absolute Neutrophil Count 8.8 X10^3/uL (2.0-7.7); Basophil# 0.06 X10^3/uL; Basophil% 0.5 % (0-1); Eosinophil# 0.05 X10^3/uL; Eosinophils% 0.4 % (0-5); Hematocrit 39.7 % (37-47); Hemoglobin 13.1 g/dL (12.0-15.0); Lymphocyte # 1.67 X10^3/ul (0.83-4.51); Lymphocyte % 14.3 % (19-41); Mean Corpuscular Hgb 30.8 pg (27.0-32.0); Mean Corpuscular Volume 93.2 fL (81-99); Mean Platelet Vol. 9.3 fl (6.2-12.0); Monocyte# 0.96 X10^3/uL; Monocyte% 8.2 % (0-10); NRBC Flagged by Analyzer 0 % (0-5); Neutrophil # 8.83 X10^3/uL (2.7-7.7); Platelet Count 250 K/mm3 (150-450); RBC Distribution Width CV 12.2 % (11.6-14.6); RBC Distribution Width SD 41.7 fl (35.1-43.9); Red Blood Count 4.26 M/mm3 (4.2-5.4); White Blood Count 11.6 K/mm3 (4.4-11.0)
[2024-01-30 11:47] LABS: ALB/GLOB Ratio 0.9 RATIO (0.9-2.4); AST(SGOT) 19 U/L (15-37); Alanine Aminotransfer ALT/SGPT 25 U/L (13-56); Albumin, Serum 3.5 g/dL (3.2-5.0); Alkaline Phosphatase 85 U/L (45-117); Anion Gap 5 (5-15); BUN 15 mg/dL (7-18); Calcium,Total 10.2 mg/dL (8.5-10.1); Chloride 106 mmol/L (98-107); Creatinine, Serum 1.07 mg/dL (0.55-1.02); EST Glomerular Filtration Rate 54 mL/min (>60); Est Glom Filt Rate - Afr Amer 65 mL/min (>60); Estimated Creatinine Clearance 44.87 ml/min; Globulin 3.9 g/dL (2.2-4.2); Glucose 175 mg/dL (74-106); Potassium 4.2 mmol/L (3.5-5.1); Protein, Total 7.4 g/dL (6.4-8.2); Sodium Level 137 mmol/L (136-145)
--- NOTE | 2024-01-30 12:06 | CT_ITS ---
STUDY: CT ABDOMEN AND PELVIS WITH CONTRAST REASON FOR EXAM: Female, 68 years old. Lower abdominal pain RADIATION DOSAGE (If Supplied By Facility): CTDIvol = ( 14.29 ) mGy, DLP = ( 930.15 ) mGycm TECHNIQUE: Transaxial images were obtained from the dome of the diaphragm to the symphysis pubis without oral contrast. IV 100mL Isovue-[id number] was administered. Sagittal and coronal images were reconstructed. Individualized dose optimization techniques were used for this CT. COMPARISON: Comparison is made with prior study July 15, 2022. FINDINGS: Minimal degree of increased markings at the lung bases suggestive of bibasilar atelectasis. The visualized portions of the heart are within normal limits. There is decreased attenuation of the liver consistent with steatosis. Stable cysts are seen in the left lobe of the liver. Normal gallbladder and extrahepatic biliary system. Normal spleen. Normal pancreas. Normal bilateral adrenal glands. Normal right kidney. Normal left kidney. Normal visualized stomach. Normal small intestine. There is diverticulosis, with thickening of the colon wall, and pericolonic inflammation changes consistent with acute diverticulitis. The appendix is visualized and appears normal. There is diffuse atherosclerotic calcification of the abdominal aorta, without a demonstrated aneurysm. Normal inferior vena cava. Normal retroperitoneum. Distended urinary bladder. A small amount of free fluid is seen in the cul-de-sac. Patient is status post hysterectomy. Normal abdominal wall. Normal osseous structures. CT/Abdomen/Pelvis W IV Cont ONLY IMPRESSION: Findings in comparison with the acute sigmoid diverticulitis with thickening of the sigmoid colon and increased markings in the surrounding mesenteric fat. Distended urinary bladder. Small amount of free fluid in the cul-de-sac. Fatty infiltration of the liver. Stable cyst in the left lobe liver. Electronically Signed: Tyrone Moss MD at 12:33 EDT ,
[2024-01-30 12:18] VITALS: BP 147/77; PULSE 77; RESP 16; O2SAT 100
[2024-01-30 12:29] LABS: Bacteria 0 SEEN /hpf (None Seen); Mucous, Urine 0 SEEN /hpf (<or=2+); Red Blood Cells-Urine 0 SEEN /hpf (0-5); Squamous Epithelial Cells - UA 0 SEEN /hpf (5-10); White Blood Cells 0 SEEN /hpf (0-5)
[2024-01-30 12:32] LABS: Color, Urine Straw (Yellow); Glucose, Dipstick Normal (Normal); Ketone-Dipstick Negative (Negative); Leukocyte Esterase-Dipstick Negative /ul (Negative); Nitrite-Dipstick Negative (Negative); Occult Blood-Urine Negative /ul (Negative); Protein-Dipstick Negative (Negative); Specific Gravity, Urine 1.005 (1.002-1.030); Urine Bilirubin Dipstick Negative (Negative); Urine Clarity Clear (Clear); Urine Urobilinogen Normal (Normal); Urine pH 6.5 (5.0 - 8.0)
[2024-01-30 12:57] VITALS: BP 147/75; PULSE 77; RESP 16; TEMP 36.6; O2SAT 97
== END 2024-01-30 13:36 | disposition home or self-care (01) ==
PROVIDERS: Emergency Provider Emergency Medicine; PCP Family Medicine; Visit Provider Emergency Medicine
DX: K57.32 Diverticulitis of large intestine without perforation or abscess without bleeding (principal); E11.9 Type 2 diabetes mellitus without complications; Z87.891 Personal history of nicotine dependence
CPT/HCPCS: 74177; 80053; 81001; 85025; 96360; 99283; J7030; Q9967; A4216

== ENCOUNTER → 2024-02-04 | Outpatient (CLI) | payer MEDICARE, SELFPAY ==
[2024-02-04 15:51] LABS: Vitamin B12 475 pg/mL (211-911)
[2024-02-04 16:12] LABS: AST(SGOT) 23 U/L (15-37); Alanine Aminotransfer ALT/SGPT 29 U/L (13-56); Albumin, Serum 3.6 g/dL (3.2-5.0); Alkaline Phosphatase 79 U/L (45-117); Anion Gap 6 (5-15); BUN 8 mg/dL (7-18); BUN/Creat Ratio 7.8 RATIO (10-20); Calcium,Total 10.2 mg/dL (8.5-10.1); Chloride 104 mmol/L (98-107); Creatinine, Serum 1.03 mg/dL (0.55-1.02); EST Glomerular Filtration Rate 56 mL/min (>60); Est Glom Filt Rate - Afr Amer 68 mL/min (>60); Globulin 3.6 g/dL (2.2-4.2); Glucose 171 mg/dL (74-106); Potassium 3.9 mmol/L (3.5-5.1); Protein, Total 7.2 g/dL (6.4-8.2); Sodium Level 137 mmol/L (136-145)
[2024-02-04 16:26] LABS: PTHIN 87.2 pg/mL (18.4-80.1)
== END | disposition home or self-care (01) ==
LOC: BFHLAB 13:18
PROVIDERS: PCP Family Medicine; Referring Provider Family Medicine; Visit Provider Family Medicine
DX: E11.22 Type 2 diabetes mellitus with diabetic chronic kidney disease (principal); N18.31 Chronic kidney disease, stage 3a; N25.81 Secondary hyperparathyroidism of renal origin; R41.3 Other amnesia
CPT/HCPCS: 36415; 80053; 82607; 83036; 83970; 84443

== ENCOUNTER → 2024-11-09 | Outpatient (CLI) | payer MEDICARE, SELFPAY ==
--- NOTE | 2024-11-09 07:24 | BI_ITS ---
EXAM: SCRN MAMM (CAD)W/NOAH BILAT DATE: 11/09/2024 CLINICAL HISTORY: F, Age 69 y/o , SCREENING No family history. BREAST CANCER RISK ASSESSMENT: Not assessed. TECHNIQUE: Bilateral screening digital breast tomosynthesis with 2D and 3D images. Computer aided detection. COMPARISON: Prior exam(s) dated prior study dated November 08, 2023.. FINDINGS: TISSUE DENSITY: The breast tissue is heterogenously dense, which may obscure small masses. Bilateral Breast Mammographic Findings: No significant masses, calcifications or other abnormalities are identified. Stable bilateral scattered microcalcifications. No focal cluster is seen. BI/SCRN MAMM (CAD)W/NOAH BILAT IMPRESSION: OVERALL FINAL ASSESSMENT: BIRADS 2 BENIGN FINDING RECOMMENDATION: Routine annual follow-up in 1 Year A letter with findings and recommendations will be mailed to the patient. Reading Location: [place] [id number]
--- OUTSIDE RECORDS SUMMARY | 2024-11-09 07:25 | XMS RPT_ITS | CCD ---
Author Organization [facility] Inform ion Partnership [facility] Care Team Providers Care Bpm Architect Name Role Phone Khadijah Dubose N Unavailable Khadijah Dubose N Unavailable DO HERNANDEZ GARZON Primary Care Provider MD HAWA AVALOS Emergency Provider UNKNOWN, PROVIDER Attending Unavailable HERNANDEZ GARZON Primary Care Unavailable Dr. Juan Brand Primary Care Provider Dr. Juan Brand Referring Provider LAURI Villar Attending Provider Dr. Juan Brand Primary Care Provider [phone] Juan Brand Referring Provider Edil [employer]CHITECT, ANTIONETTE Zhang Attending Provider [phone] Juan Brand Referring Unavailable Juan Brand Primary Care Unavailable Juan Brand Attending Unavailable Juan Brand Primary Care Unavailable Asim Mcginnis Attending Unavailable Juan Brand Referring Unavailable Juan Brand Primary Care Unavailable Juan Brand Attending Unavailable Juan Brand Attending Unavailable Juan Brand Referring Unavailable Juan Brand Primary Care Unavailable Allergies Allergy Classification Reported Allergen(s) Allergy Type Date of Onset Reaction(s) Facility (2 sources) codeine Drug Allergy 09-09-[address] [place] [address] [facility] Work Phone: (2 sources) codeine / phenylephrine / promethazine Drug Allergy 09-09-19 16 [facility] Work Phone: (2 sources) sulfamethoxazole / trimethoprim Drug Allergy 09-09-19 16 [facility] Work Phone: (6 sources) Chlorpheniramine / Phenylephrine Drug Allergy 03-27-20 21 Other [facility] Work Phone: (8 sources) Codeine Drug Allergy 03-27-20 21 Vomiting [facility] (8 sources) Promethazine Drug Allergy 03-27-20 21 unknown [facility] (8 sources) Sulfamethoxazole Drug Allergy 03-27-[address] [facility] (8 sources) Trimethoprim Drug Allergy 03-27-[address] [facility] (2 sources) Sulfonamides (Antibiotic); Translations: [Sulfa (Sulfonamide Antibiotics)] Allergy to substance 04-08-20 22 [facility] (2 sources) Chlorpheniramine Drug Allergy 07-15-19 23 Other [facility] (2 sources) Phenylephrine Drug Allergy 07-15-19 23 [facility] (1 source) Chlorpheniramine Drug Allergy 01-30-20 24 [facility] Repository (1 source) Codeine Drug Allergy 01-30-20 24 [facility] Repository (1 source) Phenylephrine Drug Allergy 01-30-20 24 [facility] Repository (1 source) Promethazine Drug Allergy 01-30-20 24 [facility] Repository (1 source) Sulfamethoxazole Drug Allergy 01-30-20 24 [facility] Repository (1 source) Trimethoprim Drug Allergy 01-30-20 24 [facility] Repository Medications Current Medications Medication Drug Class(es) Dates Sig (Normalized) Sig (Original) acetaminophen 325 mg / HYDROcodone bitartrate 5 mg oral tablet (10 sources) Opioid Agonist Start: 07-15-2022 take 1 tablet by mouth every four hours as needed Hydrocodone-Aceta minophen Active 1 TABLET PO EVERY 4 HOURS NEEDED 10 3 July 15, 2022 Start: 05-22-2017 End: 06-06-2017 take 1 tablet by mouth every six hours as needed Hydrocodone-Acetaminophen Discontinued 1 - 2 TABLET PO EVERY 6 HOURS NEEDED 60 May 22, 2017 1:00am June 06, 2017 2:05pm amoxicillin 500 mg / clavulanate 125 mg oral tablet (1 source) Penicillin-class Antibacterial Start: 04-08-2022 take 1 tablet by mouth twice daily Amoxicillin/Potassium Clav (Augmentin 500-125 Tablet) 1 EACH Tablet Active 1 EACH PO Two Times A Day April 07, 2022 11:00pm Azithromycin (2 sources) Macrolide Antimicrobial Start: 11-04-2022 Azithromycin (Zithromax Z-Wade) 250 mg tablet Active 0 PO .COMPLEX 6 November 04, 2022 12:00am For 250 mg dose pack: take 500 mg today (day 1), then 250 mg for 4 days (days 2-5) PO Start: 11-04-2022 take 1 drop(s) into the eye(s) twice daily, then take 1 drop(s) into the eye(s) once daily Azithromycin Active 1 DRP OPHTHALMIC DAILY 2.5 November 04, 2022 12:00am 1 drop twice a day for 2 days, then 1 drop daily for 5 days. ibuprofen 200 mg oral capsule (8 sources) Nonsteroidal Anti-inflammatory Drug Start: 06-06-2017 take 200 mg by mouth once Ibuprofen Active 200 MG PO ONCE June 06, 2017 1:00am Completed/Discontinued Medications Medication Drug Class(es) Dates Sig (Normalized) Sig (Original) aspirin (4 sources) Nonsteroidal Anti-inflammatory Drug Start: 09-09-2015 ASPIRIN ADULT LOW STRENGTH 81 MG [facility] ASPIRIN [id number] Genaro Gracia Start: 09-09-2015 End: 11-09-2016 ASPIRIN ADULT LOW STRENGTH 8 1 MG [facility] ASPIRIN [id number] Luz Elena Hardwick calcium carbonate 500 mg chewable tablet (8 sources) Start: 05-14-2017 End: 06-06-2017 Calcium Carbonate Discontinued 200 MG PO NEEDED May 14, 2017 1:00am June 06, 2017 2:05pm cholecalciferol 0.25 mg oral capsule (8 sources) Vitamin D Start: 03-27-2021 End: 04-13-2022 take 23528 [IU] by mouth once Cholecalciferol (Vitamin D3) Discontinued 39774 UNIT PO ONE TIME March 27, 2021 12:00am April 13, 2022 9:18am ezetimibe 10 mg oral tablet (8 sources) Dietary Cholesterol Absorption Inhibitor Start: 03-27-2021 End: 04-13-2022 take 10 mg by mouth once daily Ezetimibe Discontinued 10 MG PO DAILY March 27, 2021 12:00am April 13, 2022 9:18am metFORMIN hydrochloride 500 mg oral tablet (10 sources) Biguanide Start: 08-14-2015 End: 04-13-2022 take 500 mg by mouth once daily Metformin Discontinued 500 MG PO DAILY August 14, 2015 1:00am April 13, 2022 9:18am MULTIPLE MINERALS-VITAMINS (4 sources) Start: 09-09-2015 CALCIUM & VIT D3 [facility] MULTIPLE MINERALS-VITAMINS [id number] Genaro Gracia Start: 09-09-2015 End: 11-09-2016 CALCIUM & VIT D3 BONE HEALTH LIQD MULTIPLE MINERALS-VITAMINS [id number] Luz Elena Hardwick Nirmatrelvir-Ritonavir (3 sources) Start: 05-18-2022 End: 11-04-2022 Nirmatrelvir-Ritonavir (Paxl ovid (Eua)) 300 mg (150 mg x 2)-100 mg tablets,dose pack Discontinued 0 PO .COMPLEX May 18, 2022 1:00am November 04, 2022 9:43am take TWO 150 mg tablets of nirmatrelvir with ONE 100 mg tablet of ritonavir twice daily for 5 days PO Start: 05-18-2022 Nirmatrelvir-R itonavir (Paxlovid (Eua)) 300 mg (150 mg x 2)- 100 mg tablets,dose pack Active 0 PO .COMPLEX May 18, 2022 12:00am take TWO 150 mg tablets of nirmatrelvir with ONE 100 mg tablet of ritonavir twice daily for 5 days PO PROBIOTIC PRODUCT (4 sources) Start: 09-09-2015 4X PROBIOTIC T ABS PROBIOTIC PRODUCT [id number] Genaro Gracia Start: 09-09-2015 End: 11-09-2016 4X PROBIOTIC TABS PROBIOTIC PRODUCT [id number] Luz Elena Hardwick triamcinolone acetonide 40 mg/ml injectable suspension (4 sources) Corticosteroid Start: 11-21-2018 End: 11-21-2018 Kenalog (triamcinolone acetonide) 40 mg/mL suspension for injection Discontinued 20 MG INTRAARTIC ONCE 0.5 November 21, 2018 8:29am November 21, 2018 11:16am Problems Active Problems Problem Classification Problem Date Documented Date Episodic/Chronic Diabetes mellitus with complications (1 source) Type 2 diabetes mellitus with diabetic chronic kidney disease; Translations: [Type 2 diabetes mellitus with diabetic chronic kidney disease] Onset: 02-24-2024 Chronic E Codes: Natural/environment (1 source) Dog bite - wound; Translations: [Bitten by dog, initial encounter] 04-09-2022 Episodic Immunizations and screening for infectious disease (8 sources) Contact with or exposure to other viral diseases; Translations: [Exposure to COVID-19 virus] 03-25-2021 Episodic Inflammation; infection of eye (except that caused by tuberculosis or sexually transmitteddisease) (3 sources) Acute infectious conjunctivitis; Translations: [Unspecified acute conjunctivitis, unspecified eye] 11-04-2022 Episodic Joint disorders and dislocations; trauma-related (20 sources) Derangement of meniscus; Translations: [Derangement of knee] Onset: 09-09-2015 11-09-2016 Chronic Joint disorders and dislocations; trauma-related (14 sources) Acute meniscal tear, medial; Translations: [Other tear of lateral meniscus, current injury, right knee, initial encounter] Onset: 09-20-2016 11-09-2016 Episodic Open wounds of extremities (9 sources) Open wound of left lower leg due to dog bite; Translations: [Open bite, left lower leg, initial encounter] Episodic Open wounds of extremities (10 sources) Open wound of right lower leg due to dog bite; Translations: [Open bite, right lower leg, initial encounter] Episodic Osteoarthritis (12 sources) Osteoarthritis of knee; Translations: [Osteoarthritis of right knee joint] Onset: 09-09-2015 11-09-2016 Chronic Other screening for suspected conditions (not mental disorders or infectious disease) (2 sources) Encounter for screening mammogram for malignant neoplasm of breast; Translations: [Encounter for screening mammogram for malignant neoplasm of breast] Onset: 11-18-2023 Episodic Other upper respiratory infections (2 sources) Upper respiratory infection; Translations: [Acute upper respiratory infection, unspecified] 11-04-2022 Episodic Skin and subcutaneous tissue infections (1 source) Cellulitis of periorbital region; Translations: [Periorbital cellulitis] 11-05-2022 Episodic Spondylosis; intervertebral disc disorders; other back problems (2 sources) Low back pain; Translations: [Lumbar back pain] 07-15-2022 Episodic Sprains and strains (2 sources) Strain of muscle of chest wall; Translations: [Strain of muscle and tendon of front wall of thorax, initial encounter] 07-15-2022 Episodic Unclassified (8 sources) Age more than 65 years; Translations: [Over 65 years old] 03-27-2021 Viral infection (10 sources) Disease caused by 2019-nCoV; Translations: [COVID-19] Episodic Past or Other Problems Problem Classification Problem Date Documented Da te Episodic/Chronic Abdominal pain (3 sources) Flank pain; Translations: [Unspecified abdominal pain] Onset: 02-21-2024 07-15-2022 Episodic Other non-traumatic joint disorders (4 sources) Knee pain; Translations: [Pain in right knee] Onset: 09-09-2015 09-20-2016 Episodic Unclassified (4 sources) difficulty with anthesia 12-27-2021 Results Test Name Value Interpretation Reference Range Facility Comprehensive Metabolic Prof [facility] 02-04-2024 Albumin [Mass/Vol] 3.6 g/dL Normal 3.2-5.0 [facility] Comment on above: Performed By: #### L 503.0105, L500.4050, L501.9985, L501.9520, L509.1000 #### [facility] [address] [place], [address] Albumin/Globulin [Mass ratio] 1.0 {ratio} Normal 0.9-2.4 [facility] Comment on above: Performed By: #### L 503.0105, L500.4050, L501.9985, L501.9520, L509.1000 #### [facility] [address] [place], [address] ALK P 79 U/L Normal 45-117 [facility] Comment on above: Performed By: #### L 503.0105, L500.4050, L501.9985, L501.9520, L509.1000 #### [facility] [address] [place], [address] ALT [Catalytic activity/Vol] 29 U/L Normal 13-56 [facility] Comment on above: Performed By: #### L 503.0105, L500.4050, L501.9985, L501.9520, L509.1000 #### [facility] [address] [place], [address] AST [Catalytic activity/Vol] 23 U/L Normal 15-37 [facility] Comment on above: Performed By: #### L 503.0105, L500.4050, L501.9985, L501.9520, L509.1000 #### [facility] [address] [place], [address] Bilirubin [Mass/Vol] 0.20 mg/dL Normal 0.20-1.00 [facility] Comment on above: Result Comment: For patients on eltrombopag therapy, use of Dimension Rowan TBIL is not recommended. Performed By: #### L 503.0105, L500.4050, L501.9985, L501.9520, L509.1000 #### [facility] [address] [place], [address] BUN/CRE 7.8 RATIO Low 10-20 [facility] Comment on above: Performed By: #### L 503.0105, L500.4050, L501.9985, L501.9520, L509.1000 #### [facility] [address] [place], [address] CA,Total 10.2 mg/dL High 8.5-10.1 [facility] Comment on above: Performed By: #### L 503.0105, L500.4050, L501.9985, L501.9520, L509.1000 #### [facility] [address] [place], [address] Chloride [Moles/Vol] 104 mmol/L Normal 98-107 [facility] Comment on above: Performed By: #### L 503.0105, L500.4050, L501.9985, L501.9520, L509.1000 #### [facility] [address] [place], [address] CO2 [Moles/Vol] 27.0 mmol/L Normal 21.0-32.0 [facility] Comment on above: Performed By: #### L 503.0105, L500.4050, L501.9985, L501.9520, L509.1000 #### [facility] [address] [place], [address] Creatinine [Mass/Vol] 1.03 mg/dL High 0.55-1.02 [facility] Comment on above: Result Comment: The validity of the calculated GFR GFRAA in patients over 70 years has not been determined. Clinical correlation is essential. Performed By: #### L 503.0105, L500.4050, L501.9985, L501.9520, L509.1000 #### [facility] [address] [place], [address] EST GFR - AA 68 mL/min Normal >60 [facility] Comment on above: Result Comment: Afri can [place] GFR Calc Performed By: #### L 503.0105, L500.4050, L501.9985, L501.9520, L509.1000 #### [facility] [address] [place], [address] GAP 6 Normal 5-15 [facility] Comment on above: Performed By: #### L 503.0105, L500.4050, L501.9985, L501.9520, L509.1000 #### [facility] [address] [place], [address] GFR/1.73 sq M.predicted among non-blacks MDRD (S/P/Bld) [Vol rate/Area] 56 mL/min/{1.73_m2} Low >60 [facility] Comment on above: Result Comment: Non- GFR Calc Performed By: #### L 503.0105, L500.4050, L501.9985, L501.9520, L509.1000 #### [facility] [address] [place], [address] Globulin (S) [Mass/Vol] 3.6 g/dL Normal 2.2-4.2 [facility] Comment on above: Performed By: #### L 503.0105, L500.4050, L501.9985, L501.9520, L509.1000 #### [facility] [address] [place], [address] Glucose [Mass/Vol] 171 mg/dL High 74-106 [facility] Comment on above: Result Comment: Fast ing Glucose result greater than or equal to 126 mg/dL suggests DIABETES MELLITUS per A.D.A. criteria. Performed By: #### L 503.0105, L500.4050, L501.9985, L501.9520, L509.1000 #### [facility] [address] [place], [address] Potassium [Moles/Vol] 3.9 mmol/L Normal 3.5-5.1 [facility] Comment on above: Performed By: #### L 503.0105, L500.4050, L501.9985, L501.9520, L509.1000 #### [facility] [address] [place], [address] Sodium [Moles/Vol] 137 mmol/L Normal 136-145 [facility] Comment on above: Performed By: #### L 503.0105, L500.4050, L501.9985, L501.9520, L509.1000 #### [facility] [address] [place], [address] T PROT 7.2 g/dL Normal 6.4-8.2 [facility] Comment on above: Performed By: #### L 503.0105, L500.4050, L501.9985, L501.9520, L509.1000 #### [facility] [address] [place], [address] Urea nitrogen [Mass/Vol] 8 mg/dL Normal 7-18 [facility] Comment on above: Performed By: #### L 503.0105, L500.4050, L501.9985, L501.9520, L509.1000 #### [facility] [address] [place], [address] Hemoglobin A1con 02-04-2024 HbA1c (Bld) [Mass fraction] 7.0 % High 3.8-5.6 [facility] Comment on above: Result Comment: Norm al < 5.7 % Prediabetic 5.7 - 6.4 % Diabetic >or= 6.5 % Please note range changes. Performed By: #### L 503.0105, L500.4050, L501.9985, L501.9520, L509.1000 #### [facility] [address] [place], [address] PTHINon 02-04-2024 PTH 87.2 pg/mL High 18.4-80.1 [facility] Comment on above: Performed By: #### L 503.0105, L500.4050, L501.9985, L501.9520, L509.1000 #### [facility] [address] [place], [address] Thyroid Stim Hormone (TSH)on 02-04-2024 TSH 1.400 uIU/mL Normal 0.358-3.74 0 [facility] Comment on above: Performed By: #### L 503.0105, L500.4050, L501.9985, L501.9520, L509.1000 #### [facility] [address] [place], [address] Vitamin B12on 02-04-2024 Cobalamin (Vitamin B12) [Mass/Vol] 475 pg/mL Normal 211-911 [facility] Comment on above: Performed By: #### L 503.0105, L500.4050, L501.9985, L501.9520, L509.1000 #### [facility] [address] [place], [address] Abdomen/Pelvis W IV Cont ONL Yon 2024 Abdomen/Pelvis W IV Cont ONLY [facility] Imaging Services [address] [place] [place] [address] Abdomen/Pelvis W IV Cont ONLY MR#: [id number] Acct: [id number] Name: WOLF SANCHEZ Rep #: [id number] : 1955 F 68 From: Tyrone krishnamurthy MD PCP: Dr. Juan Brand, DO Status: REG ER Study: Abdomen/Pelvis W IV Cont ONLY Date of Exam: Exam# [id number] Ordering Dr: Asim Mcginnis MD [id number] STUDY: CT ABDOMEN AND PELVIS WITH CONTRAST REASON FOR EXAM: Female, 68 years old. Lower abdominal pain RADIATION DOSAGE (If Supplied By Facility): CTDIvol = ( 14.29 ) mGy, DLP = ( 930.15 ) mGycm TECHNIQUE: Transaxial images were obtained from the dome of the diaphragm to the symphysis pubis without oral contrast. IV 100mL Isovue-[id number] was administered. Sagittal and coronal images were reconstructed. Individualized dose optimization techniques were used for this CT. COMPARISON: Comparison is made with prior study July 15, 2022. FINDINGS: Minimal degree of increased markings at the lung bases suggestive of bibasilar atelectasis. The visualized portions of the heart are within normal limits. There is decreased attenuation of the liver consistent with steatosis. Stable cysts are seen in the left lobe of the liver. Normal gallbladder and extrahepatic biliary system. Normal spleen. Normal pancreas. Normal bilateral adrenal glands. Normal right kidney. Normal left kidney. Normal visualized stomach. Normal small intestine. There is diverticulosis, with thickening of the colon wall, and pericolonic inflammation changes consistent with acute diverticulitis. The appendix is visualized and appears normal. There is diffuse atherosclerotic calcification of the abdominal aorta, without a demonstrated aneurysm. Normal inferior vena cava. Normal retroperitoneum. Distended urinary bladder. A small amount of free fluid is seen in the cul-de-sac. Patient is status post hysterectomy. Normal abdominal wall. Normal osseous structures. CT/Abdomen/Pelvis W IV Cont ONLY IMPRESSION: Findings in comparison with the acute sigmoid diverticulitis with thickening of the sigmoid colon and increased markings in the surrounding mesenteric fat. Distended urinary bladder. Small amount of free fluid in the cul-de-sac. Fatty infiltration of the liver. Stable cyst in the left lobe liver. Electronically Signed: Tyrone Moss MD at 12:33 EDT , CC: Dr. Asim Mcginnis MD; Dr. Juan Brand DO Information Services Consultant: Signed Normal [facility] CBC W/Diff, Automatedon 01-02 Absolute Lymph 1.67 X10 3/uL Normal 0.83-4.51 [facility] Comment on above: Performed By: #### L 500.4050, L100.0100 #### [facility] [address] [place], [address] Absolute Neut 8.8 X10 3/uL High 2.0-7.7 [facility] Comment on above: Performed By: #### L 500.4050, L100.0100 #### [facility] [address] [place], [address] Basophils/100 WBC (Bld) 0.5 % Normal 0-1 [facility] Comment on above: Performed By: #### L 500.4050, L100.0100 #### [facility] [address] [place], [address] Eosinophils/100 WBC (Bld) 0.4 % Normal 0-5 [facility] Comment on above: Performed By: #### L 500.4050, L100.0100 #### [facility] [address] [place], [address] Erythrocyte distribution width (RBC) [Ratio] 12.2 % Normal 11.6-14.6 [facility] Comment on above: Performed By: #### L 500.4050, L100.0100 #### [facility] [address] [place], [address] Hematocrit (Bld) [Volume fraction] 39.7 % Normal 37-47 [facility] Comment on above: Performed By: #### L 500.4050, L100.0100 #### [facility] [address] [place], [address] Hemoglobin (Bld) [Mass/Vol] 13.1 g/dL Normal 12.0-15.0 [facility] Comment on above: Performed By: #### L 500.4050, L100.0100 #### [facility] [address] [place], [address] IG% 0.600 Normal 0.0-0.9 [facility] Comment on above: Result Comment: IG% - Immature Granulocytes (promyelocytes, myelocytes and metamyelocytes) > 1% indicates that a LEFT SHIFT is Present. Performed By: #### L 500.4050, L100.0100 #### [facility] [address] [place], [address] Lymphocytes/100 WBC (Bld) 14.3 % Low 19-41 [facility] Comment on above: Performed By: #### L 500.4050, L100.0100 #### [facility] [address] [place], [address] MCH (RBC) [Entitic mass] 30.8 pg Normal 27.0-32.0 [facility] Comment on above: Performed By: #### L 500.4050, L100.0100 #### [facility] [address] [place], [address] MCHC (RBC) [Mass/Vol] 33.0 g/dL Normal 32-36 [facility] Comment on above: Performed By: #### L 500.4050, L100.0100 #### [facility] [address] [place], [address] MCV (RBC) [Entitic vol] 93.2 fL Normal 81-99 [facility] Comment on above: Performed By: #### L 500.4050, L100.0100 #### [facility] [address] [place], [address] Monocytes/100 WBC (Bld) 8.2 % Normal 0-10 [facility] Comment on above: Performed By: #### L 500.4050, L100.0100 #### [facility] [address] [place], [address] Neutrophils/100 WBC (Bld) 76.0 % High 47-70 [facility] Comment on above: Performed By: #### L 500.4050, L100.0100 #### [facility] [address] [place], [address] Nucleated RBC (Bld) [#/Vol] 0 10*3/uL Normal 0-5 [facility] Comment on above: Performed By: #### L 500.4050, L100.0100 #### [facility] [address] [place], [address] Platelet mean volume (Bld) [Entitic vol] 9.3 fL Normal 6.2-12.0 [facility] Comment on above: Performed By: #### L 500.4050, L100.0100 #### [facility] [address] [place], [address] Platelets (Bld) [#/Vol] 250 10*3/uL Normal 150-450 [facility] Comment on above: Performed By: #### L 500.4050, L100.0100 #### [facility] [address] [place], [address] RBC (Bld) [#/Vol] 4.26 10*6/uL Normal 4.2-5.4 [facility] Comment on above: Performed By: #### L 500.4050, L100.0100 #### [facility] [address] [place], [address] RDW SD 41.7 fl Normal 35.1-43.9 [facility] Comment on above: Performed By: #### L 500.4050, L100.0100 #### [facility] [address] [place], [address] WBC (Bld) [#/Vol] 11.6 10*3/uL High 4.4-11.0 [facility] Comment on above: Performed By: #### L 500.4050, L100.0100 #### [facility] [address] [place], [address] Comprehensive Metabolic Prof [facility] 2024 Albumin [Mass/Vol] 3.5 g/dL Normal 3.2-5.0 [facility] Comment on above: Performed By: #### L 500.4050, L100.0100 #### [facility] [address] [place], [address] Albumin/Globulin [Mass ratio] 0.9 {ratio} Normal 0.9-2.4 [facility] Comment on above: Performed By: #### L 500.4050, L100.0100 #### [facility] [address] [place], [address] ALK P 85 U/L Normal 45-117 [facility] Comment on above: Performed By: #### L 500.4050, L100.0100 #### [facility] [address] [place], [address] ALT [Catalytic activity/Vol] 25 U/L Normal 13-56 [facility] Comment on above: Performed By: #### L 500.4050, L100.0100 #### [facility] [address] [place], [address] AST [Catalytic activity/Vol] 19 U/L Normal 15-37 [facility] Comment on above: Performed By: #### L 500.4050, L100.0100 #### [facility] [address] [place], [address] Bilirubin [Mass/Vol] 0.80 mg/dL Normal 0.20-1.00 [facility] Comment on above: Result Comment: For patients on eltrombopag therapy, use of Dimension Rowan TBIL is not recommended. Performed By: #### L 500.4050, L100.0100 #### [facility] [address] [place], [address] BUN/CRE 14.0 RATIO Normal 10-20 [facility] Comment on above: Performed By: #### L 500.4050, L100.0100 #### [facility] [address] [place], [address] CA,Total 10.2 mg/dL High 8.5-10.1 [facility] Comment on above: Performed By: #### L 500.4050, L100.0100 #### [facility] [address] [place], [address] Chloride [Moles/Vol] 106 mmol/L Normal 98-107 [facility] Comment on above: Performed By: #### L 500.4050, L100.0100 #### [facility] [address] [place], [address] CO2 [Moles/Vol] 26.0 mmol/L Normal 21.0-32.0 [facility] Comment on above: Performed By: #### L 500.4050, L100.0100 #### [facility] [address] [place], [address] Creatinine [Mass/Vol] 1.07 mg/dL High 0.55-1.02 [facility] Comment on above: Result Comment: The validity of the calculated GFR GFRAA in patients over 70 years has not been determined. Clinical correlation is essential. Performed By: #### L 500.4050, L100.0100 #### [facility] [address] [place], [address] ECRCL 44.87 ml/min Normal [facility] Comment on above: Performed By: #### L 500.4050, L100.0100 #### [facility] [address] [place], [address] EST GFR - AA 65 mL/min Normal >60 [facility] Comment on above: Result Comment: Afri can [place] GFR Calc Performed By: #### L 500.4050, L100.0100 #### [facility] [address] [place], [address] GAP 5 Normal 5-15 [facility] Comment on above: Performed By: #### L 500.4050, L100.0100 #### [facility] [address] [place], [address] GFR/1.73 sq M.predicted among non-blacks MDRD (S/P/Bld) [Vol rate/Area] 54 mL/min/{1.73_m2} Low >60 [facility] Comment on above: Result Comment: Non- GFR Calc Performed By: #### L 500.4050, L100.0100 #### [facility] [address] [place], [address] Globulin (S) [Mass/Vol] 3.9 g/dL Normal 2.2-4.2 [facility] Comment on above: Performed By: #### L 500.4050, L100.0100 #### [facility] [address] [place], [address] Glucose [Mass/Vol] 175 mg/dL High 74-106 [facility] Comment on above: Result Comment: Fast ing Glucose result greater than or equal to 126 mg/dL suggests DIABETES MELLITUS per A.D.A. criteria. Performed By: #### L 500.4050, L100.0100 #### [facility] [address] [place], [address] Potassium [Moles/Vol] 4.2 mmol/L Normal 3.5-5.1 [facility] Comment on above: Performed By: #### L 500.4050, L100.0100 #### [facility] [address] [place], [address] Sodium [Moles/Vol] 137 mmol/L Normal 136-145 [facility] Comment on above: Performed By: #### L 500.4050, L100.0100 #### [facility] [address] [place], [address] T PROT 7.4 g/dL Normal 6.4-8.2 [facility] Comment on above: Performed By: #### L 500.4050, L100.0100 #### [facility] [address] [place], [address] Urea nitrogen [Mass/Vol] 15 mg/dL Normal 7-18 [facility] Comment on above: Performed By: #### L 500.4050, L100.0100 #### [facility] [address] [place], [address] Emergency Department Summary on 2024 Emergency Department Summary [facility] Medical Records Department [address] [place] [address] Emergency Department Summary 01/30/24 MR#: [id number] Acct: [id number] Name: WOLF SANCHEZ Rep #: [id number] : 1955 68 From: Asim Mcginnis MD PCP: Dr. Juan Brand, DO Status:REG ER Location: ED HPI HPI - GI History of Present Illness Chief Complaint: Abd Pain Narrative Narrative: 68-year-old female who denies significant past medical history except for remote presents with suprapubic to bilateral lower quadrant abdominal pain that she has had for the last 2 to 3 days. She denies any fevers or chills, no nausea or vomiting. She last had a bowel movement this morning that contained mucus. There is no exacerbating or alleviating factors to her pain. She states its intermittent and comes and goes. It is more of a sharp stabbing pain. It is not necessarily worse with movement. She took ibuprofen the other day with minimal relief of her symptoms. She presents because of the continued pain in her lower abdomen. [facility] Medical History Mid back pain on right side Thoracic myofascial strain difficulty with anthesia Diabetes Home Medications ???Medication ???Instructions ???Recorded ???Last Taken ???Type ciprofloxacin HCl 500 mg tablet 500 mg PO BID #20 tabs 01/30/24 Unknown Rx (Cipro) hydrocodone-acetaminophen 5-325mg 1 tab PO Q6H PRN PRN Pain 3 days 01/30/24 Unknown Rx 5mg-325mg #12 TABLETS metronidazole 500 mg tablet 500 mg PO TID #30 tabs 01/30/24 Unknown Rx Allergy/AdvReac Type Severity Reaction Status Date / Time promethazine Allergy Mild unknown Verified 01/30/24 10:18 sulfamethoxazole (From Allergy Hives Verified 01/30/24 10:18 Septra) trimethoprim (From ) Allergy Hives Verified 01/30/24 10:18 chlorpheniramine AdvReac Other Verified 01/30/24 10:18 codeine AdvReac Vomiting Verified 01/30/24 10:18 phenylephrine AdvReac Other Verified 01/30/24 10:18 Family History Father Heart disease Mother Colon cancer Heart disease Diabetes Aunt Colon cancer Surgical History S/P right knee arthroscopy Status post bunionectomy History of bilateral carpal tunnel release H/O: Social History Smoking Status: Former smoker ROS ROS ED ROS Narrative Constitutional: No fever, no chills. HEENT: No sore throat. No neck pain. No loss of vision. No rhinorrhea. Cardiovascular: No chest pain. No palpitations. No pedal edema. Respiratory: No cough, no shortness of breath. Abdominal: Suprapubic to bilateral lower quadrant abdominal pain. No nausea. No vomiting. No diarrhea. Stool with mucus. Genitourinary: No dysuria. No hematuria. Musculoskeletal: No myalgias. No arthralgias. Neurologic: No headaches. No dizziness. No lightheadedness. Skin: No rash. No change in color. Psychiatric: No depression. No anxiety. EXAM Physical Exam Narrative Exam Narrative: Afebrile. Vital signs noted. HEENT: Normocephalic. Atraumatic. PERRL, EOMI. Neck soft and supple. No point tenderness or step off. Cardiovascular: Regular rate and rhythm. No murmurs, rubs, or gallops appreciated. Respiratory: No tachypnea. Lungs clear to auscultation bilaterally. Gastrointestinal: Abdomen soft, mild tenderness to palpation suprapubic to bilateral lower quadrants with normoactive bowel sounds. No rebound or guarding. Neurological: Awake. Alert. Nonfocal, nonlateralizing. Skin: No rash. Normal color. No pallor. Musculoskeletal: No pedal edema. Full range of motion extremities. Const Vital Signs: 01/30/24 10:19 01/30/24 12:18 Temperature 98.3 F Temperature Source Temporal Pulse Rate 99 77 Respiratory Rate 14 16 Blood Pressure 151/78 H 147/77 H Blood Pressure Mean 102 100 Pulse Ox 100 100 Oxygen Delivery Method Room Air Room Air MDM MDM MDM Narrative Medical decision making narrative: Differential diagnosis includes but not limited to partial small bowel obstruction versus diverticulitis versus cystitis versus any ovarian pathology. Comprehensive workup was pursued. I have low suspicion for cystitis as she is not having dysuria or hematuria. More suspicious for diverticulitis given the mucus in her stool and the location of her pain. I do feel CT imaging is indicated. She declined any analgesics here in the emergency department initially. I reviewed her laboratory work and she has slightly elevated white count of 11.6, hemoglobin 13.1, platelet count normal at 250. CMP is remarkable for a glucose of 175 and a normal anion gap of 5. Creatinine slightly elevated at 1.07. LFTs are grossly unremarkable. BUN nor (more content not included)... Normal [facility] Urinalysis, Completeon 01-29 BACTERIA 0 SEEN Normal None Seen [facility] Comment on above: Order Comment: CLEAN CATCH Performed By: #### L 503.0105, L500.4050, L501.9985, L501.9520, L509.1000 #### [facility] [address] [place], [address] EPI,SQUAMOUS 0 SEEN Normal 5-10 [facility] Comment on above: Order Comment: CLEAN CATCH Performed By: #### L 503.0105, L500.4050, L501.9985, L501.9520, L509.1000 #### [facility] [address] [place], [address] Mucus Ql (Urine sed) 0 SEEN Normal [facility] Comment on above: Order Comment: CLEAN CATCH Performed By: #### L 503.0105, L500.4050, L501.9985, L501.9520, L509.1000 #### [facility] [address] [place], [address] RBC 0 SEEN Normal 0-5 [facility] Comment on above: Order Comment: CLEAN CATCH Performed By: #### L 503.0105, L500.4050, L501.9985, L501.9520, L509.1000 #### [facility] [address] [place], [address] WBC 0 SEEN Normal 0-5 [facility] Comment on above: Order Comment: CLEAN CATCH Performed By: #### L 503.0105, L500.4050, L501.9985, L501.9520, L509.1000 #### [facility] [address] [place], [address] SCRN MAMM (CAD)W/NOAH BILATo n 11-08-2023 SCRN MAMM (CAD)W/NOAH BILAT [facility] Imaging Services [address] [place] [address] SCRN MAMM (CAD)W/NOAH BILAT MR#: [id number] Acct: [id number] Name: WOLF SANCHEZ Rep #: [id number] : 1955 F 68 From: Tyrone krishnamurthy MD PCP: Dr. Juan Brand DO Status: [facility] Study: SCRN MAMM (CAD)W/NOAH BILAT Date of Exam: 12/24 Exam# [id number] Ordering Dr: Juan Brand DO [id number] MAMMOGRAPHY - BILATERAL SCREENING REASON FOR EXAM: Female, 68 years old. Routine annual screening examination. PERTINENT HISTORY: Non-contributory. TECHNIQUE: Digital bilateral breast noah (3D mammographic acquisition) in the CC and MLO projections. 2-D mediolateral oblique (MLO) and craniocaudad (CC) views of both breasts were obtained. CAD: Full Field Digital Mammography with Computer Added Detection was performed. COMPARISON: Comparison is made with prior study dated November 06, 2022 and October 31, 2021. FINDINGS: Breast Composition: The breasts are heterogeneously dense, which may obscure small masses. There are no dominant masses or suspicious calcifications. Stable scattered bilateral microcalcifications. No focal clusters seen. No other significant abnormalities are identified. There has been no significant change since the prior study. BI/SCRN MAMM (CAD)W/NOAH BILAT IMPRESSION: Stable bilateral screening mammogram. Yearly follow-up mammogram recommended. (A) ASSESSMENT CATEGORY: BIRADS Category 2: Benign. A letter regarding these results will be sent to the patient by the facility within 30 days. Approximately 10% of breast cancers are not detected by mammography. A normal mammogram should not delay biopsy of a clinically suspicious abnormality. [id number] Electronically Signed: Tyrone Moss MD at 8:43 EDT , CC: Dr. Juan Brand, Information Services Consultant: Signed Normal [facility] Absolute lymphocyte countOrd ered By: Dr. Oneill on 11-05-2022 Lymphocytes Auto (Unsp spec) [#/Vol] 1.75 10*3/uL 0.83-4.51 [facility] Basophil percentageOrdered B y: Dr. Oneill on 11-05-2022 Basophils/100 WBC (Bld) 1.1 % 0-1 [facility] Chloride [Moles/Vol] 105 mmol/L 98-107 [facility] Eosinophils/100 WBC (Bld) 1.5 % 0-5 [facility] Glucose [Mass/Vol] 173 mg/dL 74-106 [facility] Comment on above: Fasting Glucose resu lt greater than or equal to 126 mg/dL suggests DIABETES MELLITUS per A.D.A. criteria. Neutrophils (Bld) [#/Vol] 4.5 10*3/uL 2.0-7.7 [facility] Neutrophils/100 WBC (Bld) 62.5 % 47-70 [facility] Potassium [Moles/Vol] 4.1 mmol/L 3.5-5.1 [facility] Sodium [Moles/Vol] 138 mmol/L 136-145 [facility] WBC (Bld) [#/Vol] 7.2 10*3/uL 4.4-11.0 [facility] Blood erythrocytes count (nu mber/volume)Ordered By: Dr. Oneill on 11-05-2022 RBC (Bld) [#/Vol] 4.55 10*6/uL 4.2-5.4 [facility] Blood hemoglobin measurement (mass/volume)Ordered By: Dr. Oneill on 11-05-2022 Hemoglobin (Bld) [Mass/Vol] 14.3 g/dL 12.0-15.0 [facility] Blood lymphocytes/100 leukoc ytesOrdered By: Dr. Oneill on 11-05-2022 Lymphocytes/100 WBC (Bld) 24.3 % 19-41 [facility] Blood monocytes/100 leukocyt esOrdered By: Dr. Oneill on 11-05-2022 Monocytes/100 WBC (Bld) 10.0 % 0-10 [facility] Blood platelet mean volumeOr dered By: Dr. Oneill on 11-05-2022 Platelet mean volume (Bld) [Entitic vol] 9.5 fL 6.2-12.0 [facility] Determination of erythrocyte mean corpuscular volume (MCV)Ordered By: Dr. Oneill on 11-05-2022 MCV (RBC) [Entitic vol] 95.8 fL 81-99 [facility] Hematocrit Auto (Bld) [Volum e fraction]Ordered By: Dr. Oneill on 11-05-2022 Hematocrit (Bld) [Volume fraction] 43.6 % 37-47 [facility] Laboratory - Chemistry and C hemistry - challengeOrdered By: Dr. Oneill on 11-05-2022 CO2 [Moles/Vol] 27.0 mmol/L 21.0-32.0 [facility] Urea nitrogen/Creatinine [Mass ratio] 13.5 mg/mg 10-20 [facility] Laboratory - Hematology and Cell countsOrdered By: Dr. Oneill on 11-05-2022 Erythrocyte distribution width (RBC) [Entitic vol] 42.1 fL 35.1-43.9 [facility] Erythrocyte distribution width (RBC) [Ratio] 12.1 % 11.6-14.6 [facility] Immature granulocytes/100 WBC (Bld) 0.600 % 0.0-0.9 [facility] Comment on above: IG% - Immature Granu locytes (promyelocytes, myelocytes and metamyelocytes) > 1% indicates that a LEFT SHIFT is Present. MCH (RBC) [Entitic mass] 31.4 pg 27.0-32.0 [facility] Nucleated RBC/100 WBC (Bld) [Ratio] 0 % 0-5 [facility] MCHC Auto (RBC) [Mass/Vol]Or dered By: Dr. Oneill on 11-05-2022 MCHC (RBC) [Mass/Vol] 32.8 g/dL 32-36 [facility] No Panel InformationOrdered By: Dr. Oneill on 11-05-2022 Estimated Creatinine Clearance Calc 55.49 ml/min [facility] Estimated GFR (MDRD) Amer 63 mL/min >60 [facility] Comment on above: GFR Calc Estimated GFR (MDRD) Non-Af Amer 52 mL/min >60 [facility] Comment on above: Non- GFR Calc Platelets bldOrdered By: Dr. Oneill on 11-05-2022 Platelets (Bld) [#/Vol] 275 10*3/uL 150-450 [facility] Serum or plasma calcium christ urement (mass/volume)Ordered By: Dr. Oneill on 11-05-2022 Calcium [Mass/Vol] 10.4 mg/dL 8.5-10.1 [facility] Serum or plasma creatinine m easurement (mass/volume)Ordered By: Dr. Oneill on 11-05-2022 Creatinine [Mass/Vol] 1.11 mg/dL 0.55-1.02 [facility] Comment on above: The validity of the calculated GFR & GFRAA in patients over 70 years has not been determined. Clinical correlation is essential. Serum or plasma urea nitroge n measurement (mass/volume)Ordered By: Dr. Oneill on 11-05-2022 Urea nitrogen [Mass/Vol] 15 mg/dL 7-18 [facility] Thin prep Papanicolaou smear with manual screeningOrdered By: Dr. Oneill on 11-05-2022 Thin prep Papanicolaou smear with manual screening 6 5-15 [facility] Absolute lymphocyte countOrd ered By: Logan Bliss on 07-15-2022 Lymphocytes Auto (Unsp spec) [#/Vol] 1.48 10*3/uL 0.83-4.51 [facility] Basophil percentageOrdered B y: Logan Bliss on 07-15-2022 Basophil percentage 0 SEEN /hpf 0-5 [facility] Basophils/100 WBC (Bld) 0.4 % 0-1 [facility] Bilirubin [Mass/Vol] 0.40 mg/dL 0.20-1.00 [facility] Comment on above: For patients on eltr ombopag therapy, use of Dimension Rowan TBIL is not recommended. Chloride [Moles/Vol] 105 mmol/L 98-107 [facility] Eosinophils/100 WBC (Bld) 0.2 % 0-5 [facility] Glucose [Mass/Vol] 152 mg/dL 74-106 [facility] Comment on above: Fasting Glucose resu lt greater than or equal to 126 mg/dL suggests DIABETES MELLITUS per A.D.A. criteria. Neutrophils (Bld) [#/Vol] 9.1 10*3/uL 2.0-7.7 [facility] Neutrophils/100 WBC (Bld) 81.5 % 47-70 [facility] Potassium [Moles/Vol] 4.4 mmol/L 3.5-5.1 [facility] Comment on above: Slight Hemolysis, Re sult may be falsely increased. Protein [Mass/Vol] 8.2 g/dL 6.4-8.2 [facility] Sodium [Moles/Vol] 137 mmol/L 136-145 [facility] WBC (Bld) [#/Vol] 11.2 10*3/uL 4.4-11.0 [facility] Bilirubin Test strip Ql (U)O rdered By: Logan Bliss on 07-15-2022 Bilirubin Ql (U) Negative Negative [facility] Blood erythrocytes count (nu mber/volume)Ordered By: Logan Bliss on 07-15-2022 RBC (Bld) [#/Vol] 4.66 10*6/uL 4.2-5.4 [facility] Blood hemoglobin measurement (mass/volume)Ordered By: Logan Bliss on 07-15-2022 Hemoglobin (Bld) [Mass/Vol] 14.6 g/dL 12.0-15.0 [facility] Blood lymphocytes/100 leukoc ytesOrdered By: Logan Bliss on 07-15-2022 Lymphocytes/100 WBC (Bld) 13.2 % 19-41 [facility] Blood monocytes/100 leukocyt esOrdered By: Logan Bliss on 07-15-2022 Monocytes/100 WBC (Bld) 4.0 % 0-10 [facility] Blood platelet mean volumeOr dered By: Logan Bliss on 07-15-2022 Platelet mean volume (Bld) [Entitic vol] 9.6 fL 6.2-12.0 [facility] Determination of erythrocyte mean corpuscular volume (MCV)Ordered By: Logan Bliss on 07-15-2022 MCV (RBC) [Entitic vol] 95.5 fL 81-99 [facility] Hematocrit Auto (Bld) [Volum e fraction]Ordered By: Logan Bliss on 07-15-2022 Hematocrit (Bld) [Volume fraction] 44.5 % 37-47 [facility] Ketones Test strip Ql (U)Ord ered By: Logan Bliss on 07-15-2022 Ketones Ql (U) Negative Negative [facility] Laboratory - Chemistry and C hemistry - challengeOrdered By: Logan Bliss on 07-15-2022 ALP [Catalytic activity/Vol] 79 U/L 45-117 [facility] ALT [Catalytic activity/Vol] 20 U/L 13-56 [facility] CO2 [Moles/Vol] 26.0 mmol/L 21.0-32.0 [facility] Globulin (S) [Mass/Vol] 3.9 g/dL 2.2-4.2 [facility] Lipase [Catalytic activity/Vol] 237 U/L 73-393 [facility] Urea nitrogen/Creatinine [Mass ratio] 19.8 mg/mg 10-20 [facility] Laboratory - Hematology and Cell countsOrdered By: Logan Bliss on 07-15-2022 Erythrocyte distribution width (RBC) [Entitic vol] 42.0 fL 35.1-43.9 [facility] Erythrocyte distribution width (RBC) [Ratio] 12.0 % 11.6-14.6 [facility] Immature granulocytes/100 WBC (Bld) 0.700 % 0.0-0.9 [facility] Comment on above: IG% - Immature Granu locytes (promyelocytes, myelocytes and metamyelocytes) > 1% indicates that a LEFT SHIFT is Present. MCH (RBC) [Entitic mass] 31.3 pg 27.0-32.0 [facility] Nucleated RBC/100 WBC (Bld) [Ratio] 0 % 0-5 [facility] MCHC Auto (RBC) [Mass/Vol]Or dered By: Logan Bliss on 07-15-2022 MCHC (RBC) [Mass/Vol] 32.8 g/dL 32-36 [facility] Mucus LM Ql (Urine sed)Order ed By: Logan Bliss on 07-15-2022 Mucus Ql (Urine sed) 0 SEEN /hpf [facility] Nitrite Test strip Ql (U)Ord ered By: Logan Bliss on 07-15-2022 Nitrite Ql (U) Negative Negative [facility] No Panel InformationOrdered By: Logan Bilss on 07-15-2022 Estimated Creatinine Clearance Calc 54.46 ml/min [facility] Estimated GFR (MDRD) Amer 63 mL/min >60 [facility] Comment on above: GFR Calc Estimated GFR (MDRD) Non-Af Amer 52 mL/min >60 [facility] Comment on above: Non- GFR Calc Platelets bldOrdered By: Annelise Bliss on 07-15-2022 Platelets (Bld) [#/Vol] 304 10*3/uL 150-450 [facility] Protein Test strip Ql (U)Ord ered By: Logan Bliss on 07-15-2022 Protein Ql (U) 15 mg/dl Negative [facility] Serum or plasma albumin christ urement (mass/volume)Ordered By: Logan Bliss on 07-15-2022 Albumin [Mass/Vol] 4.3 g/dL 3.2-5.0 [facility] Serum or plasma albumin/glob ulin mass ratioOrdered By: Logan Bliss on 07-15-2022 Albumin/Globulin [Mass ratio] 1.1 {ratio} 0.9-2.4 [facility] Serum or plasma calcium christ urement (mass/volume)Ordered By: Logan Bliss on 07-15-2022 Calcium [Mass/Vol] 9.9 mg/dL 8.5-10.1 [facility] Serum or plasma creatinine m easurement (mass/volume)Ordered By: Logan Bliss on 07-15-2022 Creatinine [Mass/Vol] 1.11 mg/dL 0.55-1.02 [facility] Comment on above: The validity of the calculated GFR & GFRAA in patients over 70 years has not been determined. Clinical correlation is essential. Serum or plasma urea nitroge n measurement (mass/volume)Ordered By: Logan Bliss on 07-15-2022 Urea nitrogen [Mass/Vol] 22 mg/dL 7-18 [facility] Squamous epithelial cells de tection in urine sediment by light microscopyOrdered By: Logan Bliss on 07-15-2022 Epithelial cells.squamous LM Ql (Urine sed) 0 SEEN /hpf 5-10 [facility] Thin prep Papanicolaou smear with manual screeningOrdered By: Logan Bliss on 07-15-2022 Thin prep Papanicolaou smear with manual screening 18 U/L 15-37 [facility] Comment on above: Slight Hemolysis, Re sult may be falsely increased. Thin prep Papanicolaou smear with manual screening 6 5-15 [facility] Urine blood detectionOrdered By: Logan Bliss on 07-15-2022 RBC Ql (U) Negative Negative [facility] RBC Ql (U) 0 SEEN /hpf 0-5 [facility] Urine clarityOrdered By: Annelise Bliss on 07-15-2022 Clarity (U) Sl. Cloudy Clear [facility] Urine color determinationOrd ered By: Logan Bliss on 07-15-2022 Color (U) Yellow Yellow [facility] Urine glucose detectionOrder ed By: Logan Bliss on 07-15-2022 Glucose Ql (U) Normal mg/dl Normal [facility] Urine leukocyte esterase det ection by dipstickOrdered By: Logan Bliss on 07-15-2022 Leukocyte esterase Test strip Ql (U) Negative Negative [facility] Urine pHOrdered By: Logan watson on 07-15-2022 pH (U) 5.0 [pH] 5.0 - 8.0 [facility] Urine sediment bacteria coun t by microscopy (number/high power field)Ordered By: Logan Bliss on 07-15-2022 Bacteria LM.HPF (Urine sed) [#/Area] 0 /[HPF] None Seen [facility] Urine specific gravity measu rementOrdered By: Logan Bliss on 07-15-2022 Specific gravity (U) [Rel density] 1.025 1.002-1.03 0 [facility] Urobilinogen Auto test strip Ql (U)Ordered By: Logan Bliss on 07-15-2022 Urobilinogen Ql (U) Normal mg/dl Normal [facility] Laboratory - Microbiology an d Antimicrobial susceptibilityon 05-18-2022 SARS-CoV-2 (COVID-19) RNA SHAVONNE+probe Ql (Unsp spec) Detected [facility] No Panel Informationon 05-18 Influenza Types A,B Rapid (Clinic) Not detected [facility] Anaerobic cultureOrdered By: Dr. Hull on 04-18-2022 Bacteria identified Anaer cx Nom (Unsp spec) No growth in 5 days. [facility] Routine wound cultureOrdered By: Dr. Hull on 04-17-2022 Bacteria identified Cx Nom (Wound) No growth aerobically. [facility] Gram stain for investigation of transfusion reactionOrdered By: Dr. Hull on 04-13-2022 Microscopic observation Gram stain Nom (Unsp spec) [facility] EMERGENCY DEPARTMENTon 04-09 [place] [address] HEALTH INFORMATION MANAGEMENT EMERGENCY DEPARTMENT : [id number] Signed Patient: WOLF SANCHEZ Acct:[id number] [facility] N: [id number] : 1955 Sex: F Loc: ED ADM Date: Room/Bed: DISC Date: 04/08/22 History of Present Illness - General Chief complaint: Animal bite Stated complaint: DOG BITES ON BILATERAL LEGS Symptom onset: 1529 TODAY HPI: PATIENT WAS BITTEN BY NEIGHBORS PITBULL , BITES TO BOTH LEGS, RIGHT LEG WITH LARGE AVULSIONS, BITES TO LEFT LEGS, BLEEDING LARGE AMOUNTS FROM THE LEFT LEG Time Seen by Provider: 04/08/22 17:06 Mode of Transport: Ambulatory - History of Present Illness Initial comments: 67-year-old female presenting today with bilateral lower extremity wounds. Patient states that she was trying to return dog as she found her campsite to the owners when the mother of the pop attacked her. She states that she sustained avulsion type laceration to the right lower extremity as well as the left lower extremity. She is not up-to-date with tetanus. This is not a known dog to her. She is unknown of the health of the dog. She states the dog did not appear aggressive until she realized that she was holding her puppy. - Related Data Home Medications Medication Instructions Recorded Confirmed Amoxicillin/Potassium Clav 1 each PO BID #14 tablet 04/08/22 [Augmentin 500-125 Tablet] Allergies Allergy/AdvReac Type Severity Reaction Status Date / Time Sulfa (Sulfonamide Allergy Verified 04/08/22 18:59 Antibiotics) Review of System - All Others/Exceptions All Other Systems: Reviewed and Negative Except Where Noted in Documentation ED PMH/Social HX/Family HX - [place]-Suicide Severity Rating Scale 1) Wish to be :: No 2) Suicidal Thoughts:: No 6) Suicidal Behavior Question (A): LIFETIME: No 6) Suicidal Behavior Question (B): PAST 3 MONTHS: No General Exam Sepsis focused exam performed?: No - Other Other exam information: PHYSICAL EXAM GEN: Healthy appearing, well-developed, NAD. PSYCH:AOx3. Normal memory, mood, and affect. HEENT -Head: NC/AT; -Eyes: PERRL, EOMI. No discharge or redness; Non icteric -Ears: External ears are normal. -Nose: Normal nares. No exudates -Mouth and throat: MMM. Normal gums, mucosa, palate,. Good dentition. NECK: Supple, with no masses. Treachea is at midline. Chest wall: no crepitus, no palpable devices, no scars CV: RRR, no murmors rubs or gallops LUNGS: CTAB, no w/r/c. ABD: Soft, NT/ND, NBS, no palpable masses, no organomegaly. : Deffered SKIN: Warm, well perfused. Large avulsion type laceration right lower extremity on the lateral surface. On the lateral surface of the left lower extremity there are 2 laceration flap-like lacerations noted. MSK: No deformities or signs of scoliosis. Multiple lacerations noted bilateral lower extremity. EXT: No clubbing, cyanosis, or edema. NEURO: Ambulating with no limitations. Normal muscle strength and tone. No focal deficits. - Vital Signs Vital Signs 04/08/22 17:03 Temperature 97.6 F Pulse Rate [VS 114 H Machine] Respiratory 16 Rate Blood Pressure 166/85 H [Right Arm] O2 Sat by Pulse 97 Oximetry(%) Medical Desicion Making - Lab Data Orders: Amoxicillin/Potassium Clav [Augmentin 500-125 Tablet] 1 each PO BID #14 tablet 04/08/22 [Rx] Medications Discontinued Medications Amoxicillin/Clavulanate Potassium (Amox Tr/Potassium Clavul 875/125 Mg Tablet) 1 tab PO ONE ONE Stop: 04/08/22 18:59 Last Admin: 04/08/22 19:00 Dose: 1 tab Documented by: RACHNA Bacitracin (Bacitracin Packet) 1 each TP ONE ONE Stop: 04/08/22 18:24 Last Admin: 04/08/22 18:44 Dose: 1 each Documented by: ENRIQUETA Diphtheria/Tetanus/Acell Pertussis (Tetanus, Diptheria, Acell Pertussis Vac/Pf 0.5 Ml Vial) 0.5 ml IM .ONCE ONE Stop: 04/08/22 17:52 Last Admin: 04/08/22 18:09 Dose: 0.5 ml Documented by: [email or web address] Labs 04/08/22 17:51 Diph,Pertuss(Acell),Tet Vac/Pf [Boostrix Vaccine 0.5 ml Vial] 0.5 ml IM .ONCE ONE 04/08/22 18:23 Bacitracin [Bacitracin Ointment Packet] 1 each TP ONE ONE 04/08/22 18:58 Amoxicillin Tri/Potassium Clav [Augmentin 875/125 mg Tablet] 1 tab PO ONE ONE - Medical Decision Making Patient seen and examined. His clinical concern for potential rabies exposure. is attempting to reach the business owner/engineer of the land to see if he can get a hold of tenants there to week and see if we can get better veterinary report on these animals prior to starting rabies vaccination. Her tetanus will be updated in the ER. Unfortunately there is not much as far as her suture is concerned this will be rather closure by secondary intent. 18;29: Patient was (more content not included)... Normal [facility] No Panel Informationon 10-17 Ionized Calcium 5.9 mg/dL [facility] Work Phone: Comment on above: Performed at: [facility] [employer] Director: Brad Garcia PhD, Phone: [phone] No Panel Informationon 10-12 Miscellaneous Test See comment [facility] Work Phone: Comment on above: TEST RESULT LIMITSPT HrP (PTH-Related Peptide)PTHrP (PTH- Related Peptide) <2.0 pmol/LThis test was developed and its performance characteristicsdetermined by [facility]. It has not been cleared or approvedby the Food and Drug Administration.Reference Range:All Ages: <2.0The PTHrP assay should not be used to exclude cancer orscreen tumor patients for humoral hypercalcemia ofmalignancy (HHM). The results should always be assessed inconjunction with the patient's medical history, clinicalexamination, and other findings. If test results areclinically discordant, please contact the laboratory. ____ TESTING PERFORMED AT [employer]. ORIGINAL REPORT ON FILE IN LAB CONTAINS ADDITIONAL TEST SITE INFORMATION. Parathyroid Hormone (Intact) 80.0 pg/mL 18.4-80.1 [facility] Work Phone: Serum or plasma calcitriol m easurement (mass/volume)on 10-12-2021 1,25-dihydroxyvitamin D3 [Mass/Vol] 33.9 pg/mL [facility] Work Phone: Comment on above: Effective November 06, 2021 Calcitriol(1,25 di-OH Vit D) reference interval will be changing to: pg/mL 0 - 6 months: 44.3 - 212.9 7 months - 1 year: 40.3 - 112.4 >1 year: 24.8 - 81.5Performed at: [facility] - [facility] [address] [id number] Director: Barn Navarrete MD, Phone: [phone] Absolute lymphocyte counton 09-28-2021 Lymphocytes Auto (Unsp spec) [#/Vol] 1.76 10*3/uL 0.83-4.51 [facility] Work Phone: Basophil percentageon 2021 Basophils/100 WBC (Bld) 0.7 % 0-1 [facility] Work Phone: Bilirubin [Mass/Vol] 0.40 mg/dL 0.20-1.00 [facility] Work Phone: Comment on above: For patients on eltr ombopag therapy, use of Dimension Rowan TBIL is not recommended. Chloride [Moles/Vol] 105 mmol/L 98-107 [facility] Work Phone: Cholesterol [Mass/Vol] 252 mg/dL <200 [facility] Work Phone: Comment on above: <200 mg/dL Desirable 200-240 mg/dL Borderline >240 mg/dL High Risk Eosinophils/100 WBC (Bld) 2.5 % 0-5 [facility] Work Phone: Glucose [Mass/Vol] 138 mg/dL 74-106 [facility] Work Phone: Comment on above: Fasting Glucose resu lt greater than or equal to 126 mg/dL suggests DIABETES MELLITUS per A.D.A. criteria. Neutrophils (Bld) [#/Vol] 3.4 10*3/uL 2.0-7.7 [facility] Work Phone: Neutrophils/100 WBC (Bld) 56.7 % 47-70 [facility] Work Phone: Potassium [Moles/Vol] 4.2 mmol/L 3.5-5.1 [facility] Work Phone: Comment on above: Slight Hemolysis, Re sult may be falsely increased. Protein [Mass/Vol] 7.9 g/dL 6.4-8.2 [facility] Work Phone: Sodium [Moles/Vol] 137 mmol/L 136-145 [facility] Work Phone: Triglyceride [Mass/Vol] 234 mg/dL [facility] Work Phone: Comment on above: The drugs N-Acetylcy steine and Metamizole may falsely depress this assay.Serum Triglycerides Reference Interval Normal <150 mg/dL Borderline high 150 - 199 mg/dL High 200 - 499 mg/dL Very High > or = 500 mg/dL WBC (Bld) [#/Vol] 6.0 10*3/uL 4.4-11.0 [facility] Work Phone: Blood erythrocytes count (nu mber/volume)on 09-28-2021 RBC (Bld) [#/Vol] 4.51 10*6/uL 4.2-5.4 [facility] Work Phone: Blood hemoglobin measurement (mass/volume)on 09-28-2021 Hemoglobin (Bld) [Mass/Vol] 14.4 g/dL 12.0-15.0 [facility] Work Phone: Blood lymphocytes/100 leukoc yteson 09-28-2021 Lymphocytes/100 WBC (Bld) 29.2 % 19-41 [facility] Work Phone: Blood monocytes/100 leukocyt eson 09-28-2021 Monocytes/100 WBC (Bld) 10.6 % 0-10 [facility] Work Phone: Blood platelet mean volumeon 09-28-2021 Platelet mean volume (Bld) [Entitic vol] 9.7 fL 6.2-12.0 [facility] Work Phone: Determination of erythrocyte mean corpuscular volume (MCV)on 09-28-2021 MCV (RBC) [Entitic vol] 94.9 fL 81-99 [facility] Work Phone: Hematocrit Auto (Bld) [Volum e fraction]on 09-28-2021 Hematocrit (Bld) [Volume fraction] 42.8 % 37-47 [facility] Work Phone: Laboratory - Chemistry and C hemistry - challengeon 09-28-2021 ALP [Catalytic activity/Vol] 73 U/L 45-117 [facility] Work Phone: ALT [Catalytic activity/Vol] 24 U/L 13-56 [facility] Work Phone: CO2 [Moles/Vol] 28.0 mmol/L 21.0-32.0 [facility] Work Phone: Globulin (S) [Mass/Vol] 3.9 g/dL 2.2-4.2 [facility] Work Phone: Urea nitrogen/Creatinine [Mass ratio] 19.5 mg/mg 10-20 [facility] Work Phone: Laboratory - Hematology and Cell countson 09-28-2021 Erythrocyte distribution width (RBC) [Entitic vol] 42.2 fL 35.1-43.9 [facility] Work Phone: Erythrocyte distribution width (RBC) [Ratio] 12.0 % 11.6-14.6 [facility] Work Phone: Immature granulocytes/100 WBC (Bld) 0.300 % 0.0-0.9 [facility] Work Phone: Comment on above: IG% - Immature Granu locytes (promyelocytes, myelocytes and metamyelocytes) > 1% indicates that a LEFT SHIFT is Present. MCH (RBC) [Entitic mass] 31.9 pg 27.0-32.0 [facility] Work Phone: Nucleated RBC/100 WBC (Bld) [Ratio] 0 % 0-5 [facility] Work Phone: MCHC Auto (RBC) [Mass/Vol]on 09-28-2021 MCHC (RBC) [Mass/Vol] 33.6 g/dL 32-36 [facility] Work Phone: No Panel Informationon 09-28 Estimated GFR (MDRD) Amer 59 mL/min >60 [facility] Work Phone: Comment on above: GFR Calc Estimated GFR (MDRD) Non-Af Amer 48 mL/min >60 [facility] Work Phone: Comment on above: Non- GFR Calc Parathyroid Hormone (Intact) 92.5 pg/mL 18.4-80.1 [facility] Work Phone: Urine Microalbumin/Creatini ne Ratio 11.8 mg/g CRE <30 [facility] Work Phone: Vitamin D 25-Hydroxy 37.2 ng/mL [facility] Work Phone: Comment on above: Vitamin D 25(OH) Sta tus Range Deficiency <20 ng/mL (50nmol/L) Insufficiency 20 - 30 ng/mL (50 - 75 nmol/L) Sufficiency 30 - 100 ng/mL (75 - 250 nmol/L) Toxicity >100 ng/mL (>250 nmol/L) Platelets bldon 09-28-2021 Platelets (Bld) [#/Vol] 293 10*3/uL 150-450 [facility] Work Phone: Serum or plasma albumin christ urement (mass/volume)on 09-28-2021 Albumin [Mass/Vol] 4.0 g/dL 3.2-5.0 [facility] Work Phone: Serum or plasma albumin/glob ulin mass ratioon 09-28-2021 Albumin/Globulin [Mass ratio] 1.0 {ratio} 0.9-2.4 [facility] Work Phone: Serum or plasma calcium christ urement (mass/volume)on 09-28-2021 Calcium [Mass/Vol] 9.8 mg/dL 8.5-10.1 [facility] Work Phone: Serum or plasma cholesterol in HDL measurement (mass/volume)on 09-28-2021 Cholesterol in HDL [Mass/Vol] 46 mg/dL [facility] Work Phone: Comment on above: The drugs N-Acetylcy steine and Metamizole may falsely depress this assay. Reference Range HDL <40 mg/dL Low HDL Cholesterol HDL >or= 60 mg/dL High HDL Cholesterol Serum or plasma cholesterol in VLDL measurement (mass/volume)on 09-28-2021 Cholesterol in VLDL [Mass/Vol] 47 mg/dL 5-40 [facility] Work Phone: Serum or plasma creatinine m easurement (mass/volume)on 09-28-2021 Creatinine [Mass/Vol] 1.18 mg/dL 0.55-1.02 [facility] Work Phone: Comment on above: The validity of the calculated GFR & GFRAA in patients over 70 years has not been determined. Clinical correlation is essential. Serum or plasma low density lipoprotein (LDL) cholesterol measurement (mass/volume)on 09-28-2021 Cholesterol in LDL [Mass/Vol] 159 mg/dL 0-130 [facility] Work Phone: Serum or plasma urea nitroge n measurement (mass/volume)on 09-28-2021 Urea nitrogen [Mass/Vol] 23 mg/dL 7-18 [facility] Work Phone: Thin prep Papanicolaou smear with manual screeningon 09-28-2021 Thin prep Papanicolaou smear with manual screening 24 U/L 15-37 [facility] Work Phone: Comment on above: Slight Hemolysis, Re sult may be falsely increased. Thin prep Papanicolaou smear with manual screening 4 5-15 [facility] Work Phone: Thin prep Papanicolaou smear with manual screening 30.0 mg/L NO RANGE EST. [facility] Work Phone: Urine creatinine measurement (mass/volume)on 09-28-2021 Creatinine (U) [Mass/Vol] 254.00 mg/dL NO RANGE EST. [facility] Work Phone: Whole blood hemoglobin A1c/t otal hemoglobin ratio (mass fraction)on 09-28-2021 HbA1c (Bld) [Mass fraction] 6.2 % 3.8-5.6 [facility] Work Phone: Comment on above: Normal < 5.7 % Predi abetic 5.7 - 6.4 % Diabetic >or= 6.5 % Please note range changes. Office Visiton 04-23-2017 Documentation of current medications (procedure) Done Invalid Interpretation Code [facility] Work Phone: Tobacco smoking status NHIS Never Invalid Interpretation Code [facility] Work Phone: Tobacco use [facility] Former smoker Invalid Interpretation Code [facility] Work Phone: Office Visiton 11-09-2016 Documentation of current medications (procedure) Done Invalid Interpretation Code [facility] Work Phone: Tobacco smoking status NHIS Never Invalid Interpretation Code [facility] Work Phone: Tobacco use [facility] Former smoker Invalid Interpretation Code [facility] Work Phone: Anaerobic culture Bacteria identified Anaer cx Nom (Unsp spec) No growth in 5 days. [facility] Work Phone: Gram stain for investigation of transfusion reaction Microscopic observation Gram stain Nom (Unsp spec) [facility] Work Phone: Routine wound culture Bacteria identified Cx Nom (Wound) No growth aerobically. [facility] Work Phone: Vital Signs Date Time Vital Sign Value Performing Clinician Facility 11-05-2022 08:34-0400 Body height 149.[address] Juan Brand Work Phone: [facility] 11-05-2022 08:34-0400 Body mass index (BMI) [Ratio] 32.7 kg/m2 Dr. Juan Brand Work Phone: [facility] 11-05-2022 08:34-0400 Body temperature 97.5 [degF] Dr. Juan Brand Work Phone: [facility] 11-05-2022 08:34-0400 Body weight 73.[address] Juan Brand Work Phone: [facility] 11-05-2022 08:34-0400 Diastolic blood pressure 95 mm[Hg] Dr. Juan Brand Work Phone: [facility] 11-05-2022 08:34-0400 Heart rate 82 /min Dr. Juan Brand Work Phone: [facility] 11-05-2022 08:34-0400 Respiratory rate 16 /min Dr. Juan Brand Work Phone: [facility] 11-05-2022 08:34-0400 SaO2% (BldA) [Mass fraction] 100 % Dr. Juan Brand Work Phone: [facility] 11-05-2022 08:34-0400 Systolic blood pressure 165 mm[Hg] Dr. Juan Brand Work Phone: [facility] 11-04-2022 09:42-0400 Body temperature 97.1 [degF] Dr. Juan Brand Work Phone: [facility] 11-04-2022 09:42-0400 Diastolic blood pressure 68 mm[Hg] Dr. Juan Brand Work Phone: [facility] 11-04-2022 09:42-0400 Heart rate 94 /min Dr. Juan Brand Work Phone: [facility] 11-04-2022 09:42-0400 Respiratory rate 16 /min Dr. Juan Brand Work Phone: [facility] 11-04-2022 09:42-0400 SaO2% (BldA) [Mass fraction] 98 % Dr. Juan Brand Work Phone: [facility] 11-04-2022 09:42-0400 Systolic blood pressure 142 mm[Hg] Dr. Juan Brand Work Phone: [facility] 07-15-2022 13:38-0500 Body temperature 97.4 [degF] Dr. Juan Brand Work Phone: [facility] 07-15-2022 13:38-0500 Diastolic blood pressure 82 mm[Hg] Dr. Juan Brand Work Phone: [facility] 07-15-2022 13:38-0500 Heart rate 90 /min Dr. Juan Brand Work Phone: [facility] 07-15-2022 13:38-0500 Respiratory rate 16 /min Dr. Juan Brand Work Phone: [facility] 07-15-2022 13:38-0500 SaO2% (BldA) [Mass fraction] 99 % Dr. Juan Brand Work Phone: [facility] 07-15-2022 13:38-0500 Systolic blood pressure 154 mm[Hg] Dr. Juan Brand Work Phone: [facility] 07-15-2022 11:07-0500 Body height 149.[address] Juan Brand Work Phone: [facility] 07-15-2022 11:07-0500 Body mass index (BMI) [Ratio] 32.1 kg/m2 Dr. Juan Brand Work Phone: [facility] 07-15-2022 11:07-0500 Body weight 72.[address] Juan Brand Work Phone: [facility] 06-29-2022 09:26-0500 Body mass index (BMI) [Ratio] 32.3 kg/m2 Dr. Juan Brand Work Phone: [facility] 06-29-2022 09:26-0500 Body temperature 96 [degF] Dr. Juan Brand Work Phone: [facility] 06-29-2022 09:26-0500 Diastolic blood pressure 83 mm[Hg] Dr. Juan Brand Work Phone: [facility] 06-29-2022 09:26-0500 Heart rate 84 /min Dr. Juan Brand Work Phone: [facility] 06-29-2022 09:26-0500 Respiratory rate 16 /min Dr. Juan Brand Work Phone: [facility] 06-29-2022 09:26-0500 Systolic blood pressure 177 mm[Hg] Dr. Juan Brand Work Phone: [facility] 06-03-2022 00:31-0500 Body weight 72.[address] Juan Brand Work Phone: [facility] 06-01-2022 09:42-0500 Body mass index (BMI) [Ratio] 32.3 kg/m2 Dr. Juan Brand Work Phone: [facility] 06-01-2022 09:42-0500 Body temperature 96.2 [degF] Dr. Juan Brand Work Phone: [facility] 06-01-2022 09:42-0500 Diastolic blood pressure 83 mm[Hg] Dr. Juan Brand Work Phone: [facility] 06-01-2022 09:42-0500 Heart rate 92 /min Dr. Juan Brand Work Phone: [facility] 06-01-2022 09:42-0500 Respiratory rate 16 /min Dr. Juan Brand Work Phone: [facility] 06-01-2022 09:42-0500 Systolic blood pressure 166 mm[Hg] Dr. Juan Brand Work Phone: [facility] 05-18-2022 12:13-0500 Body temperature 98.4 [degF] Dr. Juan Brand Work Phone: [facility] 05-18-2022 12:13-0500 Diastolic blood pressure 82 mm[Hg] Dr. Juan Brand Work Phone: [facility] 05-18-2022 12:13-0500 Heart rate 97 /min Dr. Juan Brand Work Phone: [facility] 05-18-2022 12:13-0500 Respiratory rate 18 /min Dr. Juan Brand Work Phone: [facility] 05-18-2022 12:13-0500 SaO2% (BldA) [Mass fraction] 96 % Dr. Juan Brand Work Phone: [facility] 05-18-2022 12:13-0500 Systolic blood pressure 142 mm[Hg] Dr. Juan Brand Work Phone: [facility] 05-03-2022 00:40-0500 Body weight 72.[address] Juan Brand Work Phone: [facility] 04-30-2022 14:48-0500 Body mass index (BMI) [Ratio] 32.3 kg/m2 [facility] 04-30-2022 14:48-0500 Body temperature 97 [degF] [facility] 04-30-2022 14:48-0500 Diastolic blood pressure 75 mm[Hg] [facility] 04-30-2022 14:48-0500 Heart rate 68 /min [facility] 04-30-2022 14:48-0500 Systolic blood pressure 128 mm[Hg] [facility] 04-20-2022 09:07-0500 Respiratory rate 18 /min [facility] 04-13-2022 08:02-0500 Body height 149.86 cm [facility] Work Phone: 04-13-2022 08:02-0500 Body weight 72.57 kg [facility] 04-08-2022 17:03-0500 Body height 149.86 cm DO [facility] Work Phone: [facility] 04-08-2022 17:03-0500 Body temperature 97.6 [degF] DO [employer] Work Phone: [facility] 04-08-2022 17:03-0500 Body weight 70.31 kg DO [employer] Work Phone: [facility] 04-08-2022 17:03-0500 Diastolic blood pressure 85 mm[Hg] DO [employer] Work Phone: [facility] 04-08-2022 17:03-0500 Heart rate 114 /min DO [employer] Work Phone: [facility] 04-08-2022 17:03-0500 Respiratory rate 16 /min DO [employer] Work Phone: [facility] 04-08-2022 17:03-0500 SaO2% (BldA) [Mass fraction] 97 % DO [employer] Work Phone: [facility] 04-08-2022 17:03-0500 Systolic blood pressure 166 mm[Hg] DO HERNANDEZ GARZON Work Phone: [facility] 12-07-2018 12:26-0400 Body mass index (BMI) [Ratio] 33.7 kg/m2 [facility] Work Phone: 09-09-2015 08:46-0400 Weight 74.39 kg Khadijah Wymany [facility] Work Phone: Encounters Encounter Date Encounter Type Care Provider Facility Start: 11-09-2024 ambulatory Juan Brand Facility: [facility] Start: 02-04-2024 End: 02-04-2024 ambulatory Juan Cathie Facility:[facility] Start: 2024 End: 2024 Emergency department patient visit Juan Brand Facility:[facility] Start: 11-08-2023 End: 11-08-2023 ambulatory Juan Brand Facility:[facility] Start: 11-05-2022 End: 11-05-2022 Emergency department patient visit Dr. Juan Brand Work Phone: [facility]Emergency [facility] Start: 11-04-2022 End: 11-04-[address] Juan Brand Work Phone: [facility] Start: 07-15-2022 End: 07-15-2022 Emergency department patient visit Dr. Juan Brand Work Phone: [facility] Start: 06-29-2022 End: 07-03-[address] Juan Brand Work Phone: [facility] Start: 06-01-2022 End: 06-02-[address] Juan Brand Work Phone: [facility] Work Phone: Start: 06-01-2022 End: 06-02-[address] [facility] Start: 05-18-2022 End: 05-18-[address] Juan Brand Work Phone: [facility] Start: 04-30-2022 End: 05-02-2022 ambulatory [facility] Work Phone: Start: 04-30-2022 End: 05-02-2022 [facility] Start: 04-08-2022 End: 04-08-2022 Emergency department patient visit PROVIDER UNKNOWN Facility: Start: 04-08-2022 End: 04-08-2022 Emergency department patient visit DO HERNANDEZ GARZON Work Phone: [facility] Start: 10-31-2021 End: 10-31-2021 Patient encounter procedure [facility]Outpatient Bone Densitometry Start: 10-23-2021 End: 10-23-2021 Patient encounter procedure [facility]Cardiovascular Services Start: 10-17-2021 End: 10-17-2021 Patient encounter procedure [facility]Laboratory Start: 10-12-2021 End: 10-12-2021 Patient encounter procedure [facility] Start: 09-28-2021 End: 09-28-2021 Patient encounter procedure [facility] Procedures Date Procedure Procedure Detail Performing Clinician Start: 11-05-2022 CT of head with contrast Dr. Juan Brand Work Phone: Start: 07-15-2022 CT of abdomen and pe lvis without contrast Dr. Juan Brand Work Phone: Start: 10-31-2021 Dual energy X-ray absorptiometry Start: 10-31-2021 Screening mammography Start: 09-20-2016 End: 09-24-2016 Arthrocentesis aspir&/inj major jt/bursa w/o us Nolberto Shane Work Phone: Anaerobic microbial culture Anaerobic microbial culture Dr. Juan Brand Work Phone: Investigation of transfusion reaction Investigation of transfusion reaction Dr. Juan Brand Work Phone: Microbial culture, routine Microbial culture, routine D harriet Brand Work Phone: Plan of Treatment Date Care Activity Detail Author Start: 04-09-2022 [facility] Start: 05-22-2017 End: 05-22-2017 Appointment Appointment [facility] Work Phone: Start: 10-17-2016 End: 10-17-2016 Physical Therapy General Physical Therapy [facility], [address] [place] [address], [id number] [facility] Work Phone: Start: 10-12-2016 End: 10-12-2016 Mri any jt lower extrem w/o contrast matrl MRI Joint Lower Extremity [facility] Work Phone: Start: 09-20-2016 End: 09-20-2016 Radiologic exam knee complete 4/more views X-Ray, Knee [facility] Work Phone: Start: 09-09-2015 End: 09-09-2015 Radiologic exam knee complete 4/more views X-Ray, Knee [facility] Work Phone: Patient Education [facility] Work Phone: Patient referral [facility] Work Phone: Immunizations Immunization Date Immunization Notes Care Provider Yuliya lora 04-08-2022 diphtheria, tetanus toxoids and acellular pertussis vaccine DO HERNANDEZ GARZON Work Phone: [facility] 03-21-2022 influenza, seasonal, injectable [facility] 07-21-2021 Covid (Pfizer) [facility] 05-02-2021 influenza, seasonal, injectable [facility] 07-04-2020 Covid (Moderna) [facility] 06-06-2020 Covid (Moderna) [facility] 04-07-2020 influenza, seasonal, injectable [facility] 03-24-2019 influenza, seasonal, injectable [facility] 03-26-2018 influenza, seasonal, injectable [facility] 03-27-2017 influenza, seasonal, injectable [facility] 03-01-2016 influenza, seasonal, injectable [facility] 03-03-2015 influenza, seasonal, injectable [facility] 03-03-2014 influenza, seasonal, injectable [facility] 04-27-2013 Influenza virus vaccine [facility] Payers Date Payer Category Payer Self-pay [id number] 2023 Unknown [id number] 2015 Unknown [id number] Medicare [id number] Medicare [employer] MEDICARE [id number] Unknown [id number] Unknown [id number] Unknown [id number] Unknown [id number] Social History Date Type Detail Facility Start: 03-27-2021 End: 11-05-2022 Tobacco smoking status NHIS Unknown if ever smoked [facility] Start: 1955 Sex Assigned At Female [facility] Medical Equipment Procedure Code Equipment Code Equipment Original Text Equipment Identifier Dates SUBCHRONDROPLAST Y KNEE KIT FDA Start: 05-22-2017 SUBCHRONDROPLAST Y KNEE KIT FDA Start: 05-22-2017 SUBCHRONDROPLAST Y KNEE KIT FDA Start: 05-22-2017 SUBCHRONDROPLAST Y KNEE KIT FDA Start: 05-22-2017 SUBCHRONDROPLAST Y KNEE KIT FDA Start: 05-22-2017 SUBCHRONDROPLAST Y KNEE KIT FDA Start: 05-22-2017 SUBCHRONDROPLAST Y KNEE KIT FDA Start: 05-22-2017 SUBCHRONDROPLAST Y KNEE KIT FDA Start: 05-22-2017 Functional Status Date Assessment Result Facility 04-08-2022 Functional status Barriers to Learning No ne [facility] Work Phone: Mental Status Date Assessment Result Facility 04-08-2022 Cognitive function Level Of Cons ciousness Awake;Alert;Appropriate;Follow s Commands [facility] Work Phone: Discharge summary 04-09-2022 Note Date & Type Note Facility 04-09-2022 Discharge summary Note Date/Time April 08, 2022 5:50pm [facility] [address] [place] [id number] [facility] EMERGENCY DEPARTMENT : [phone] Signed Patient: WOLF SANCHEZ Acct:[id number] MRUN: [id number] : 1955 Sex: F Loc: ED AD M Date: 04/08/22 Room/Bed: DISC Date: 04/08 History of Present Illness - General Chief complaint: Animal bite Stated complaint: DOG BITES ON BILATERAL LEGS Symptom onset: 1529 TODAY HPI: PATIENT WAS BITTEN BY NEIGHBORS PITBULL , BITES TO BOTH LEGS, RIGHT LEG WITH LARGE AVULSIONS, BITES TO LEFT LEGS, BLEEDING LARGE AMOUNTS FROM THE LEFT LEG Time Seen by Provider: 04/08/22 17:06 Mode of Transport: Ambulatory - History of Present Illness Initial comments: 67-year-old female presenting today with bilateral lower extremity wounds. Patient states that she was trying to return dog as she found her campsite to the owners when the mother of the pop attacked her. She states that she sustained avulsion type laceration to the right lower extremity as well as the left lower extremity. She is not up-to-date with tetanus. This is not a known dog to her. She is unknown of the health of the dog. She states the dog did not appear aggressive until she realized that she was holding her puppy. - Related Data Home Medications Medication Instructions Recorded Confirmed Amoxicillin/Potassium Clav 1 each PO BID #14 tablet 04/08/22 [Augmentin 500-125 Tablet] Allergies Allergy/AdvReac Type Severity Reaction Status Date / Time Sulfa (Sulfonamide Allergy Verified 04/08/22 18:59 Antibiotics) Review of System - All Others/Exceptions All Other Systems: Reviewed and Negative Except Where Noted in Documentation ED PMH/Social HX/Family HX - [place]-Suicide Severity Rating Scale 1) Wish to be :: No 2) Suicidal Thoughts:: No 6) Suicidal Behavior Question (A): LIFETIME: No 6) Suicidal Behavior Question (B): PAST 3 MONTHS: No General Exam Sepsis focused exam performed?: No - Other Other exam information: PHYSICAL EXAM GEN: Healthy appearing, well-developed, NAD. PSYCH:AOx3. Normal memory, mood, and affect. HEENT -Head: NC/AT; -Eyes: PERRL, EOMI. No discharge or redness; Non icteric -Ears: External ears are normal. -Nose: Normal nares. No exudates -Mouth and throat: MMM. Normal gums, mucosa, palate,. Good dentition. NECK: Supple, with no masses. Treachea is at midline. Chest wall: no crepitus, no palpable devices, no scars CV: RRR, no murmors rubs or gallops LUNGS: CTAB, no w/r/c. ABD: Soft, NT/ND, NBS, no palpable masses, no organomegaly. : Deffered SKIN: Warm, well perfused. Large avulsion type laceration right lower extremityon the lateral surface. On the lateral surface of the left lower extremity there are 2 laceration flap-like lacerations noted. MSK: No deformities or signs of scoliosis. Multiple lacerations noted bilaterallower extremity. EXT: No clubbing, cyanosis, or edema. NEURO: Ambulating with no limitations. Normal muscle strength and tone. No focaldeficits. - Vital Signs Vital Signs 04/08/22 17:03 Temperature 97.6 F Pulse Rate [VS 114 H Machine] Respiratory 16 Rate Blood Pressure 166/85 H [Right Arm] O2 Sat by Pulse 97 Oximetry(%) Medical Desicion Making - Lab Data Orders: Amoxicillin/Potassium Clav [Augmentin 500-125 Tablet] 1 each PO BID #14 tablet 04/08/22 [Rx] Medications Discontinued Medications Amoxicillin/Clavulanate Potassium (Amox Tr/Potassium Clavul 875/125 Mg Tablet) 1 tab PO ONE ONE Stop: 04/08/22 18:59 Last Admin: 04/08/22 19:00 Dose: 1 tab Documented by: RACHNA Bacitracin (Bacitracin Packet) 1 each TP ONE ONE Stop: 04/08/22 18:24 Last Admin: 04/08/22 18:44 Dose: 1 each Documented by: ENRIQUETA Diphtheria/Tetanus/Acell Pertussis (Tetanus, Diptheria, Acell Pertussis Vac/Pf 0.5 Ml Vial) 0.5 ml IM .ONCE ONE Stop: 04/08/22 17:52 Last Admin: 04/08/22 18:09 Dose: 0.5 ml Documented by: ENRIQUETA Labs 04/08/22 17:51 Diph,Pertuss(Acell),Tet Vac/Pf [Boostrix Vaccine 0.5 ml Vial] 0.5 ml IM .ONCE ONE 04/08/22 18:23 Bacitracin [Bacitracin Ointment Packet] 1 each TP ONE ONE 04/08/22 18:58 Amoxicillin Tri/Potassium Clav [Augmentin 875/125 mg Tablet] 1 tab PO ONE ONE - Medical Decision Making Patient seen and examined. His clinical concern for potential rabies exposure. is attempting to reach the business owner/engineer of the land to see if he can get a holdof tenants there to week and see if we can get better veterinary report on theseanimals prior to starting rabies vaccination. Her tetanus will be updated in the ER. Unfortunately there is not much as far as her suture is concerned this will be rather closure by secondary intent. 18;29: Patient was able to get a hold of the business owner/engineer of the dog the dog is [id number] with immunizations. Patient's wound will be dressed with bacitracin and nonstick gauze and she will follow-up with the wound clinic in [facility]. She was given her first dose of Augmentin in the ER. ED Discharge Summary - Discharge Data Clinical Impression: Dog bite Condition: Good Disposition: 01 HOME / SELF CARE / HOMELESS Referrals: HERNANDEZ GARZON DO [Primary Care Provider] - Home Medications: Ambulatory Orders Medication Instructions Recorded Amoxicillin/Potassium Clav 1 each PO BID #14 tablet 04/08/22 [Augmentin 500-125 Tablet] Time Seen by Provider: 04/08/22 17:06 Electronically Generated By:HAWA AVALOS MD Generated Date/Time: 04/08/22 1748 Electronically Signed By: HAWA AVALOS MD Signed Date/Time 04/09/22 0901 Co Signed Electronically By: Co Signed Date/Time: CC: HERNANDEZ GARZON [facility] Work Phone: Evaluation note Note Date & Type Note Facility Evaluation note No assessment information availa [facility] Work Phone: Evaluation note Note Date & Type Note Facility Evaluation note Diagnosis Onset Date Open wound of left lower leg due to dog bite acute Open wound of right lower le g due to dog bite [facility] Work Phone: Evaluation note Note Date & Type Note Facility Evaluation note Diagnosis Onset Date Open wound of left lower leg due to dog bite acute Open wound of right lower le g due to dog bite acute COVID-19 acute Open wound of left lower leg due to dog bite acute Open wound of right lower le g due to dog bite [facility] Work Phone: Evaluation note Note Date & Type Note Facility Evaluation note Diagnosis Onset Date Open wound of left lower leg due to dog bite acute Open wound of right lower le g due to dog bite acute COVID-19 acute Open wound of left lower leg due to dog bite acute Open wound of right lower le g due to dog bite acute Open wound of right lower le g due to dog bite [facility] Work Phone: Evaluation note Note Date & Type Note Facility Evaluation note Diagnosis Onset Date Acute bacterial conjunctivitis acute URI (upper respiratory infection) acute [facility] Work Phone: Hospital Discharge instructions Note Date & Type Note Facility Hospital Discharge instructions Ambulatory OrdersReferral Location: None Selected [facility] Work Phone: Hospital Discharge instructions Note Date & Type Note Facility Hospital Discharge instructions Additional Instructions Take the pain medicine as needed. If pain gets worse, fever, chills, worsening symptoms please return [facility] Work Phone: Hospital Discharge instructions Note Date & Type Note Facility Hospital Discharge instructions Additional Instructions Use the Cipro eyedrops every 2-3 hours while awake. Wash your hands anytime you touch your eye including putting your eyedrops in. [facility] Work Phone: Family History No Family History Records Found Relationship Condition Age at Onset Recorded Date/T gaye father Cardiac disease Unknown mother Malignant neoplasm of colon Unknown Cardiac disease Unknown Diabetes mellitus Unknown aunt Malignant neoplasm of colon Unknown Advance Directives No Advanced Directives Records Found Advance Directive Response Recorded Date/ Time Living Will Yes May 14, 2 017 3:28pm Power of Traveling Repair Accountant Yes May 14, 2017 3:28pm Advance Directive Response Recorded Date/ Time Living Will Yes May 14, 2 017 2:28pm Power of Traveling Repair Accountant Yes May 14, 2017 2:28pm Advance Directive Response Recorded Date/ Time Living Will No July 15, 2 023 11:24am Power of Traveling Repair Accountant No July 15, 2022 11:24am Advance Directive Response Recorded Date/ Time Living Will No November 05, 2022 8 :44am Power of Traveling Repair Accountant No November 05, 2022 8:44am Chief Complaint and Reason for Visit Chief Complaint REDRAW IONIZED CALCI UM FORMER SMOKER Chief Complaint REDRAW IONIZED CALCI UM FORMER SMOKER SCREENING//LABWORK SCANNED IN OPBD ACCT Chief Complaint DOG BITES ON BILATER AL LEGS Chief Complaint WOUND Reason for Visit Open wound of left l ower leg due to dog bite Open wound of right lower leg due to dog bite Chief Complaint WOUND HEAD CONGESTED, SORE THROAT, LT EAR PAIN WOUND Reason for Visit Open wound of left l ower leg due to dog bite Open wound of right lower leg due to dog bite COVID-19 Open wound of left lower leg due to dog bite Open wound of right lower leg due to dog bite Chief Complaint WOUND HEAD CONGESTED, SORE THROAT, LT EAR PAIN WOUND WOUND FLANK PAIN Reason for Visit Open wound of left l ower leg due to dog bite Open wound of right lower leg due to dog bite COVID-19 Open wound of left lower leg due to dog bite Open wound of right lower leg due to dog bite Open wound of right lower leg due to dog bite Chief Complaint FLANK PAIN SINUS, SORE THROAT, LFT EYE DRAINAGE eye Reason for Visit Acute bacterial conj unctivitis URI (upper respiratory infection) Summary Purpose Additional Source Comments Goals (unrecognized section and content) Goals may be documented in a n alternate sectionGoals may be documented in an alternate sectionGoals may be documented in an alternate sectionGoals may be documented in an alternate sectionGoals may be documented in an alternate sectionGoals may be documented in an alternate sectionGoals may be documented in an alternate sectionGoals may be documented in an alternate section Care Teams (unrecognized sec tion and content) Team Status: Active Member Role Status Dates HERNANDEZ GARZON DO Primary Care Provider Active Start: April 08, 2022 HAWA AVALOS MD Emergency Provider Active Star t: April 08, 2022 MARTITA ALVAREZ next of kin Active Team Status: Active Member Role Status Dates Dr. Juan Brand DO Family Provider Active Dr. Juan Brand DO Primary Care Provider Active Team Status: Inactive Member Role Status Dates Dr. Juan Brand DO Primary Care Provider, Referrin g Provider Active Senthil CARREON, PA Attending Provider Active Team Status: Inactive Member Role Status Dates Dr. Juan Brand DO Primary Care Provider Active Dr. nIes Hull DO Attending Provider Active Team Status: Inactive Member Role Status Dates Dr. Juan Brand DO Primary Care Provider Active Dr. Horacio Foreman DO Emergency Provider Active Team Status: Inactive Member Role Status Dates Dr. Juan Brand DO Primary Care Provider, Referrin g Provider Active Cristo Solo [employer] ARCHITECT, [employer] SOLUT[employer] ARCHITECT-C Attending Provider Active Team Status: Inactive Member Role Status Dates Dr. Juan Brand DO Primary Care Provider Active Dr. Horacio Foreman DO Attending Provider, Emergency Pro vider Active Team Status: Inactive Member Role Status Dates Dr. Juan Brand DO Primary Care Provider Active Dr. Sander Oneill , DO Emergency Provider Active INFORMATION SOURCE (unrecogn ized section and content) DATE CREATED AUTHOR 04/17/2022 [facility] DATE CREATED AUTHOR AUTHOR'S HILDA WINION 11/05/2024 [facility] FOR RECORDS PERTAINING TO PATIENTS WHO ARE OR HAVE BEEN ENROLLED IN A CHEMICAL DEPENDENCY/SUBSTANCEABUSE PROGRAM, SOME INFORMATION MAY BE OMITTED. This clinical summary was aggregated from multiple sources. Caution should be exercised in using it in the provision of clinical care. This summary normalizes information from multiple sources, and as a consequence, information in this document may materially change the coding, format and clinical context of patient data. In addition, data may be omitted in some cases. CLINICAL DECISIONS SHOULD BE BASED ON THE PRIMARY CLINICAL RECORDS. [facility] [employer] [facility]. provides no warranty or guarantee of the accuracy or completeness of information in this document.
== END | disposition home or self-care (01) ==
LOC: OPBI 07:22
PROVIDERS: PCP Family Medicine; Referring Provider Family Medicine; Visit Provider Family Medicine
DX: Z12.31 Encounter for screening mammogram for malignant neoplasm of breast (principal)
CPT/HCPCS: 77063; 77067